=== PATIENT | female | born 1990 | race Caucasian/White ===

== ENCOUNTER → 2016-05-15 | Outpatient (CLI) | payer MEDICARE, OTHER ==
[2016-05-15 14:27] LABS: Basophils % (A) 0 %; CH 31.1; CHCM 33.9; Eosinophils # (A) 0.2 k/uL (0-0.7); Eosinophils % (A) 2 %; HCT 35.8 % (34.0-46.0); HDW 2.94; HGB 11.8 gm/dL (11.4-16.0); Luc # (Auto) 0.06; Luc % (Auto) 1; Lymphocytes # (A) 1.6 k/uL (1.0-4.8); Lymphocytes % (A) 16 %; MCH 30.6 pg (25.0-35.0); MCHC 33.1 g/dL (31.0-37.0); MCV 92.4 fL (80.0-100.0); Mean Platelet Volume 7.7; Monocytes # (A) 0.3 k/uL (0-1.0); Monocytes % (A) 3 %; Neutrophils # (A) 7.9 k/uL (1.3-7.7); Neutrophils % (A) 79 %; RBC 3.87 m/uL (3.80-5.40); RDW 13.5 % (11.5-15.5); WBC (Perox) 10.73
[2016-05-16 06:34] LABS: HIV-1/HIV-2 Ab Screen NONREAC (NON REAC)
== END | disposition home or self-care (01) ==
LOC: LABWHC1 12:53
PROVIDERS: ATTEND Obstetrics & Gynecology
DX: Z36 Encounter for antenatal screening of mother (principal); Z3A.00 Weeks of gestation of pregnancy not specified
CPT/HCPCS: 36415; 82950; 85025; 86780; 87389

== ENCOUNTER → 2016-05-16 | Outpatient (CLI) | payer MEDICARE, OTHER ==
--- NOTE | 2016-05-16 17:08 | US ---
EXAMINATION TYPE: US abdomen complete DATE OF EXAM: 05/16/2016 4:39 PM COMPARISON: US on PACS CLINICAL HISTORY: periumbilical pain, patient 26 weeks . Patient has history of hernia as a t eenager in the same area as her pain. EXAM MEASUREMENTS: Liver Length: 16.0 cm Gallbladder Wall: 0.2 cm CBD: 0.4 cm Spleen: 12.1 cm Right Kidney: 11.6 x 4.9 x 6.7 cm Left Kidney: 11.9 x 4.9 x 6.4 cm ANATOMY: TECHNOLOGIST IMPRESSION: Scanned area of patients pain, right side of umbilicus, no abnormality note d. Pancreas: visualized portions within normal limits Liver: Within normal limits Gallbladder: no stones seen Evidence for sonographic Enriquez's sign: no CBD: Within normal limits Spleen: Within normal limits Right Kidney: mild to moderate hydro seen Left Kidney: No hydronephrosis or masses seen Upper IVC: Within normal limits Abd Aorta: only proximal portions seen due to The liver is homogenous. The intrahepatic portion of the IVC and proximal abdominal aorta are within normal limits. There is no evidence of cholelithiasis. Common bile duct is unremarkable. The visu alized portions of the pancreas are homogenous. The spleen is unremarkable. Kidneys are symmetric a nd free of hydronephrosis. No renal lesions are seen. IMPRESSION: There is mild right-sided hydronephrosis. It is not clear if this is related to the patie nt's symptoms. This could relate to hydronephrosis of .. No gallstones or dilated ducts. No evidence of a hernia. Normal Values: Liver Length: < 16cm wnl, 17-18cm upper limits, >18cm enlarged Spleen Length = < 13cm Renal Length = 9 - 12cm GB Wall: < 0.3cm CBD: < 0.6cm or < 1.0cm post cholecystectomy
== END | disposition home or self-care (01) ==
LOC: RADUSMAIN 16:07
PROVIDERS: ATTEND Obstetrics & Gynecology
DX: N13.30 Unspecified hydronephrosis (principal); R10.33 Periumbilical pain; Z90.49 Acquired absence of other specified parts of digestive tract
CPT/HCPCS: 76700

== ENCOUNTER 2016-06-17 16:26 | Outpatient (CLI) | payer MEDICARE, OTHER ==
[2016-06-17 17:17] LABS: Amorphous Sediment,Urine Rare /hpf; Appearance,Urine Cloudy (Clear); Bilirubin,Urine Negative (Negative); Glucose,Urine (UA) Negative (Negative); Ketones,Urine Negative (Negative); Leukocyte Esterase,Urine Small (Negative); Mucus,Urine Rare /hpf; Nitrite,Urine Negative (Negative); Particle Count 17726; Protein,Urine Negative (Negative); Specific Gravity,Urine 1.014 (1.001-1.035); Squamous Epithelial Cell,Urine <1 /hpf (0-4); UA Billing (MACRO vs. MICRO) MICRO; Urobilinogen,Urine <2.0 mg/dL (<2.0); WBC,Urine 4 /hpf (0-5)
== END 2016-06-17 17:31 | disposition home or self-care (01) ==
LOC: FBPOP 16:26
PROVIDERS: ATTEND Obstetrics & Gynecology
DX: O60.03 Preterm labor without delivery, third trimester (principal); Z3A.31 31 weeks gestation of pregnancy
CPT/HCPCS: 59025; 81001; 80306; G0463; 99213

== ENCOUNTER 2017-01-02 17:23 | Emergency (ER) | payer MEDICARE, OTHER ==
[2017-01-02 17:39] VITALS: BP 104/50; PULSE 81; RESP 18; TEMP 98.1
[2017-01-02] MEDS ORDERED: diphenhydrAMINE 50 MG/ML 1 ML VIAL IVP STA (19:10)
[2017-01-02] MEDS ORDERED: DEXAMETHASONE SOD PHOSPHATE 10 MG/ML 1 ML VIAL IV STA (19:10)
[2017-01-02] MEDS ORDERED: METOCLOPRAMIDE 5 MG/ML 2 ML VIAL IVP STA (19:10)
[2017-01-02] MEDS ORDERED: SODIUM CHLORIDE 0.9% 1,000 ML IV STA (19:10)
--- NOTE | 2017-01-02 19:12 | ED ---
General Adult HPI - General Chief complaint: Headache Stated complaint: Headache, Abd Pain Time Seen by Provider: 01/02/17 18:53 Source: patient, RN notes reviewed Mode of arrival: ambulatory Limitations: no limitations - History of Present Illness Initial comments: Patient 26-year-old female significant past medical history for migraines, who presents emergency room today with chief complaint of migraine headache over the last 2 days. Does admit that she's had photosensitivity along with nausea vomiting. Patient denies any abdominal pain at this time. Patient denies any other complaints. She states the symptoms are consistent with migraine headaches that she's had in the past. Patient denies any recent fever, chills, shortness of breath, chest pain, back pain, abdominal pain, numbness or tingling, dysuria or hematuria, constipation or diarrhea, visual changes, or any other complaints. - Related Data Previous Rx's Medication Instructions Recorded Metoclopramide HCl [Reglan] 10 mg PO Q6HR PRN #5 day 01/02/17 Allergies Allergy/AdvReac Type Severity Reaction Status Date / Time cyclobenzaprine HCl Allergy Unknown Verified 01/02/17 19:11 [From Flexeril] hydromorphone HCl Allergy Nausea & Verified 01/02/17 17:39 [From Dilaudid] Vomiting ketorolac tromethamine Allergy Nausea & Verified 01/02/17 17:39 [From Toradol] Vomiting morphine Allergy Nausea & Verified 01/02/17 19:11 Vomiting Review of Systems ROS Statement: Those systems with pertinent positive or pertinent negative responses have been documented in the HPI. ROS Other: All systems not noted in ROS Statement are negative. Past Medical History Past Medical History: Asthma Additional Past Medical History / Comment(s): detached retina at . Psoriasis, OVARIAN CYST, "heart problems". History of Any Multi-Drug Resistant Organisms: MRSA Date of last positivie culture/infection: 08/24/2012 MDRO Source:: right hip Past Surgical History: Section, Hernia Repair Additional Past Surgical History / Comment(s): RIGHT OVARIAN CYST REMOVED Past Psychological History: Anxiety, Bipolar, Depression Smoking Status: Never smoker Past Alcohol Use History: None Reported Past Drug Use History: Marijuana General Exam - General Exam Comments Initial Comments: General: The patient is awake and alert, in no distress, and does not appear acutely ill. Eye: Pupils are equal, round and reactive to light, extra-ocular movements are intact. No nystagmus. There is normal conjunctiva bilaterally. No signs of icterus. Ears, nose, mouth and throat: There are moist mucous membranes and no oral lesions. Neck: The neck is supple, there is no tenderness or JVD. Cardiovascular: There is a regular rate and rhythm. No murmur, rub or gallop is appreciated. Respiratory: Lungs are clear to auscultation, respirations are non-labored, breath sounds are equal. No wheezes, stridor, rales, or rhonchi. Musculoskeletal: Normal ROM, no tenderness. Strength 5/5. Sensation intact. Pulses equal bilaterally 2+. Neurological: A&O x 3. CN II-XII intact, There are no obvious motor or sensory deficits. Coordination appears grossly intact. Speech is normal. Skin: Skin is warm and dry and no rashes or lesions are noted. Psychiatric: Cooperative, appropriate mood & affect, normal judgment. Limitations: no limitations Course Vital Signs 01/02/17 17:37 Temperature 98.1 F Pulse Rate 81 Respiratory 18 Rate Blood Pressure 104/50 O2 Sat by Pulse 96 Oximetry Medical Decision Making - Medical Decision Making Patient at this time states that she does need to leave to spanish moss picker her children. There is unable to establish IV access and patient has not received any medications. Patient states that this migraine is consistent with migraines is had in the past but at this time needs to leave to give her children. Patient will be discharged and advised follow-up family doctor. Disposition Clinical Impression: Migraine Disposition: HOME SELF-CARE Condition: Good Instructions: Migraine Headache (ED) Additional Instructions: Please use medication as discussed. Please follow-up with family doctor in the next 2 days of symptoms have not improved. Please return to emergency room if the symptoms increase or worsen or for any other concerns. Prescriptions: Metoclopramide HCl [Reglan] 10 mg PO Q6HR PRN #5 day PRN Reason: Nausea Referrals: Amada Roblero MD [Primary Care Provider] - 1-2 days Viktor Stroud MD [STAFF PHYSICIAN] - 1-2 days Time of Disposition: 19:50
== END 2017-01-02 19:59 | disposition home or self-care (01) ==
LOC: EC 17:23
DX: G43.909 Migraine, unspecified, not intractable, without status migrainosus (principal); Z86.14 Personal history of Methicillin resistant Staphylococcus aureus infection; Z88.6 Allergy status to analgesic agent; Z88.5 Allergy status to narcotic agent; Z88.8 Allergy status to other drugs, medicaments and biological substances
CPT/HCPCS: 99283

== ENCOUNTER 2017-03-17 12:57 | Emergency (ER) | payer MEDICARE, OTHER ==
--- NOTE | 2017-03-17 13:38 | ED ---
General Adult HPI - General Chief complaint: GI Bleed Stated complaint: Rectal Bleeding Time Seen by Provider: 03/17/17 13:00 Source: patient, RN notes reviewed Mode of arrival: ambulatory Limitations: no limitations - History of Present Illness Initial comments: This is a 26-year-old female presents emergency Department complaining that she has broken but every time she has a bowel movement 1 week. Patient states she also is noted over the last month that she is having bruising on her legs and her arms which is not from any trauma that she knows of. Patient states she seen her primary medical care doctor about this and she is going to have her worked up for these problems but because the bleeding continues she wanted to come in. Patient told me immediately that she did not want anyone looking at her buttocks. I told it would be helpful she again refused. Patient denies any recent fever chills. Patient denies abdominal pain. Patient denies any rectal pain. Patient denies any pain with problems. Patient denies any hematuria urinary frequency or dysuria. - Related Data Home Medications Medication Instructions Recorded Confirmed No Known Home Medications [No 03/17/17 03/17/17 Known Home Medications] Allergies Allergy/AdvReac Type Severity Reaction Status Date / Time cyclobenzaprine HCl Allergy Unknown Verified 03/17/17 13:14 [From Flexeril] hydromorphone HCl Allergy Nausea & Verified 03/17/17 13:14 [From Dilaudid] Vomiting ketorolac tromethamine Allergy Nausea & Verified 03/17/17 13:14 [From Toradol] Vomiting morphine Allergy Nausea & Verified 03/17/17 13:14 Vomiting Review of Systems ROS Statement: Those systems with pertinent positive or pertinent negative responses have been documented in the HPI. ROS Other: All systems not noted in ROS Statement are negative. Past Medical History Past Medical History: Asthma Additional Past Medical History / Comment(s): detached retina at . Psoriasis, OVARIAN CYST, "heart problems". History of Any Multi-Drug Resistant Organisms: MRSA Date of last positivie culture/infection: 08/24/2012 MDRO Source:: right hip Past Surgical History: Section, Hernia Repair Additional Past Surgical History / Comment(s): RIGHT OVARIAN CYST REMOVED Past Psychological History: Anxiety, Bipolar, Depression Smoking Status: Current every day smoker Past Alcohol Use History: None Reported Past Drug Use History: None Reported General Exam - General Exam Comments Initial Comments: GENERAL: Patient is well-developed and well-nourished. Patient is nontoxic and well- hydrated and is in no acute distress. ENT: Neck is soft and supple. No significant lymphadenopathy is noted. Oropharynx is clear. Moist mucous membranes. Neck has full range of motion without eliciting any pain. EYES: The sclera were anicteric and conjunctiva were pink and moist. Extraocular movements were intact and pupils were equal round and reactive to light. Eyelids were unremarkable. PULMONARY: Unlabored respirations. Good breath sounds bilaterally. No audible rales rhonchi or wheezing was noted. CARDIOVASCULAR: There is a regular rate and rhythm without any murmurs gallops or rubs. ABDOMEN: Soft and nontender with normal bowel sounds. No palpable organomegaly was noted. There is no palpable pulsatile mass. SKIN: Patient has multiple bruises on both legs and both arms and they are at different stages of resolution. NEUROLOGIC: Patient is alert and oriented x3. Cranial nerves II through XII are grossly intact. Motor and sensory are also intact. Normal speech, volume and content. Symmetrical smile. MUSCULOSKELETAL: Normal extremities with adequate strength and full range of motion. No lower extremity swelling or edema. No calf tenderness. LYMPHATICS: No significant lymphadenopathy is noted PSYCHIATRIC: Normal psychiatric evaluation. RECTAL: Patient refuses an examination of her rectal area. Limitations: no limitations Course Vital Signs 03/17/17 13:01 Temperature 98.8 F Pulse Rate 87 Respiratory 18 Rate Blood Pressure 116/64 O2 Sat by Pulse 100 Oximetry Medical Decision Making - Lab Data Result diagrams: 03/17/17 14:10 03/17/17 14:10 Lab Results 03/17/17 03/17/17 03/17/17 Range/Units 14:10 14:10 14:10 WBC 8.0 (3.8-10.6) k/uL RBC 4.31 (3.80-5.40) m/uL Hgb 12.9 (11.4-16.0) gm/dL Hct 38.8 (34.0-46.0) % MCV 90.1 (80.0-100.0) fL MCH 29.9 (25.0-35.0) pg MCHC 33.2 (31.0-37.0) g/dL RDW 14.0 (11.5-15.5) % Plt Count 210 (150-450) k/uL Neutrophils % 66 % Lymphocytes % 27 % Monocytes % 4 % Eosinophils % 2 % Basophils % 0 % Neutrophils # 5.3 (1.3-7.7) k/uL Lymphocytes # 2.1 (1.0-4.8) k/uL Monocytes # 0.3 (0-1.0) k/uL Eosinophils # 0.1 (0-0.7) k/uL Basophils # 0.0 (0-0.2) k/uL PT 9.8 (9.0-12.0) sec INR 1.0 (<1.2) APTT 24.9 (22.0-30.0) sec Sodium 142 (137-145) mmol/L Potassium 4.0 (3.5-5.1) mmol/L Chloride 107 (98-107) mmol/L Carbon Dioxide 27 (22-30) mmol/L Anion Gap 8 mmol/L BUN 19 H (7-17) mg/dL Creatinine 0.70 (0.52-1.04) mg/dL Est GFR (MDRD) Af Amer >60 (>60 ml/min/1.73 sqM) Est GFR (MDRD) Non-Af >60 (>60 ml/min/1.73 sqM) Glucose 72 L (74-99) mg/dL Calcium 9.3 (8.4-10.2) mg/dL Total Bilirubin 0.4 (0.2-1.3) mg/dL AST 18 (14-36) U/L ALT 28 (9-52) U/L Alkaline Phosphatase 57 (38-126) U/L Total Protein 7.2 (6.3-8.2) g/dL Albumin 4.4 (3.5-5.0) g/dL Disposition Clinical Impression: Rectal bleeding, Easy bruising Disposition: HOME SELF-CARE Instructions: Gastrointestinal Bleeding (ED) Additional Instructions: Patient refuses rectal throughout her whole stay in the emergency department Patient is a follow-up with a laborer orchard for the rectal bleeding and a shelter director for the bruising. Referrals: Amada Roblero MD [Primary Care Provider] - 1-2 days Time of Disposition: 15:17
[2017-03-17 14:34] LABS: Basophils % (A) 0 %; CH 29.9; CHCM 33.3; Eosinophils # (A) 0.1 k/uL (0-0.7); Eosinophils % (A) 2 %; HCT 38.8 % (34.0-46.0); HDW 2.41; HGB 12.9 gm/dL (11.4-16.0); Luc % (Auto) 1; Lymphocytes # (A) 2.1 k/uL (1.0-4.8); Lymphocytes % (A) 27 %; MCH 29.9 pg (25.0-35.0); MCHC 33.2 g/dL (31.0-37.0); MCV 90.1 fL (80.0-100.0); Mean Platelet Volume 7.2; Monocytes # (A) 0.3 k/uL (0-1.0); Monocytes % (A) 4 %; Neutrophils # (A) 5.3 k/uL (1.3-7.7); Neutrophils % (A) 66 %; RBC 4.31 m/uL (3.80-5.40)
[2017-03-17 14:47] LABS: ALT 28 U/L (9-52); AST 18 U/L (14-36); Alkaline Phosphatase 57 U/L (38-126); Anion Gap 8 mmol/L; Blood Urea Nitrogen 19 mg/dL (7-17); Calcium 9.3 mg/dL (8.4-10.2); Carbon Dioxide 27 mmol/L (22-30); Chloride 107 mmol/L (98-107); Glucose 72 mg/dL (74-99); Non-African American GFR(MDRD) >60 (>60 ml/min/1.73 sqM); Sodium 142 mmol/L (137-145); Total Bilirubin 0.4 mg/dL (0.2-1.3); Total Protein 7.2 g/dL (6.3-8.2)
[2017-03-17 15:14] LABS: Partial Thromboplastin Time 24.9 sec (22.0-30.0); Prothrombin Time 9.8 sec (9.0-12.0)
[2017-03-17 15:22] VITALS: BP 111/58; PULSE 77; RESP 15; TEMP 97.6
== END 2017-03-17 15:37 | disposition home or self-care (01) ==
LOC: EC 12:57
DX: K62.5 Hemorrhage of anus and rectum (principal); S80.12XA Contusion of left lower leg, initial encounter; S80.11XA Contusion of right lower leg, initial encounter; S40.022A Contusion of left upper arm, initial encounter; S40.021A Contusion of right upper arm, initial encounter; F17.200 Nicotine dependence, unspecified, uncomplicated; Z88.5 Allergy status to narcotic agent; Z88.6 Allergy status to analgesic agent; Z88.8 Allergy status to other drugs, medicaments and biological substances
CPT/HCPCS: 36415; 80053; 85025; 85610; 85730; 99284

== ENCOUNTER → 2017-03-19 | Outpatient (CLI) | payer MEDICARE, OTHER ==
--- NOTE | 2017-03-19 12:13 | CT ---
EXAMINATION TYPE: CT abdomen pelvis w con DATE OF EXAM: 03/19/2017 COMPARISON: 02/07/2016 HISTORY: Rectal bleeding and bruising to the extremities without injury CT DLP: 1421 mGycm CONTRAST: CT scan of the abdomen and pelvis is performed with Oral Contrast and with IV Contrast, patient injec ananya with 100 mL of Omnipaque 300. FINDINGS: LUNG BASES-: No visible nodule. No infiltrate. LIVER/GB: No calcified gallstones. No space occupying hepatic lesion. Biliary tree is of normal ca liber. PANCREAS: No inflammation. No distinct mass. SPLEEN: No splenic enlargement. Small cystic lesion is seen within the upper pole of the spleen germán uring 1 cm. This was not present previously may reflect a small cyst. ADRENALS: No nodule. No thickening. KIDNEYS/BLADDER: No hydronephrosis. No nephrolithiasis. No disctinct renal mass. Urinary bladder g rossly unremarkable. BOWEL: Normal appendix. Normal bowel caliber. No inflammation. Moderate fecal stasis noted. GENITAL ORGANS: No gross abnormality. LYMPH NODES: No greater than 1cm abdominal or pelvic lymph nodes are appreciated. AORTA: No significant abnormality. OSSEOUS STRUCTURES: No significant abnormality is seen. OTHER: No significant additional abnormality is seen. IMPRESSION: 1. No distinct abnormality to account for the patient's symptoms. Correlate clinically. 2. Small splenic cyst.
== END | disposition home or self-care (01) ==
LOC: RADCTMAIN 09:56
PROVIDERS: ATTEND Family Medicine
DX: D73.4 Cyst of spleen (principal)
CPT/HCPCS: 74177; Q9967

== ENCOUNTER 2017-05-24 23:56 | Emergency (ER) | payer MEDICARE, OTHER ==
[2017-05-25 00:12] VITALS: RESP 18
[2017-05-25] MEDS ORDERED: traMADol 50 MG TAB PO STA (00:37)
[2017-05-25] MEDS ORDERED: KETOROLAC 30 MG/ML 1 ML VIAL IM STA (00:37)
[2017-05-25 00:41] LABS: Appearance,Urine Clear (Clear); Bilirubin,Urine Negative (Negative); Blood,Urine Negative (Negative); Color,Urine Yellow; Glucose,Urine (UA) Negative (Negative); Ketones,Urine Negative (Negative); Leukocyte Esterase,Urine Negative (Negative); Nitrite,Urine Negative (Negative); Protein,Urine Trace (Negative); Specific Gravity,Urine 1.024 (1.001-1.035)
--- NOTE | 2017-05-25 01:26 | ED ---
Abdominal Pain HPI - General Chief Complaint: Abdominal Pain Stated Complaint: Pevlic Pain Time Seen by Provider: 05/25/17 00:14 Source: patient, RN notes reviewed, old records reviewed Mode of arrival: ambulatory Limitations: no limitations - History of Present Illness Initial Comments: This patient is a 26-year-old female presents emergency Department chief complaint of left lower abdominal pain for the past 3 days. She reports she has history of ovarian cysts and feels like this pain is very similar to that. Patient states that she feels nauseated but denies any specific vomiting. Normal bowel habits normal urination. Denies any fever or chills, chest pain or shortness of breath. Patient otherwise denies any back pain or other symptoms.Patient denies any recent fever, chills, shortness of breath, chest pain, back pain, vomiting, numbness or tingling, dysuria or hematuria, constipation or diarrhea, headaches or visual changes, or any other current symptoms - Related Data Previous Rx's Medication Instructions Recorded Ibuprofen [Motrin] 600 mg PO Q8HR PRN #20 tab 05/25/17 Allergies Allergy/AdvReac Type Severity Reaction Status Date / Time No Known Allergies Allergy Verified 04/02/17 14:45 Review of Systems ROS Statement: Those systems with pertinent positive or pertinent negative responses have been documented in the HPI. ROS Other: All systems not noted in ROS Statement are negative. Past Medical History Past Medical History: Asthma, Skin Disorder Additional Past Medical History / Comment(s): detached retina at . Psoriasis, OVARIAN CYST, "heart problems". KIDNEY STONES,. PAST HX GI BLEEDING AND BRUISING History of Any Multi-Drug Resistant Organisms: MRSA Date of last positivie culture/infection: 08/24/2012 MDRO Source:: right hip Past Surgical History: Section, Hernia Repair Additional Past Surgical History / Comment(s): RIGHT OVARIAN CYST REMOVED Past Anesthesia/Blood Transfusion Reactions: No Reported Reaction Past Psychological History: Anxiety, Bipolar, Depression Smoking Status: Current every day smoker Past Alcohol Use History: None Reported Past Drug Use History: Marijuana - Past Family History Mother Family Medical History: Cancer General Exam - General Exam Comments Initial Comments: This is a 26-year-old female. No acute distress. Limitations: no limitations General appearance: alert Head exam: Present: atraumatic, normocephalic, normal inspection Eye exam: Present: normal appearance, PERRL, EOMI. Absent: scleral icterus, conjunctival injection, periorbital swelling ENT exam: Present: normal exam, mucous membranes moist Neck exam: Present: normal inspection. Absent: tenderness, meningismus, lymphadenopathy Respiratory exam: Present: normal lung sounds bilaterally. Absent: respiratory distress, wheezes, rales, rhonchi, stridor Cardiovascular Exam: Present: regular rate, normal rhythm, normal heart sounds. Absent: systolic murmur, diastolic murmur, rubs, gallop, clicks GI/Abdominal exam: Present: soft, tenderness ( Minimal left lower quadrant tenderness.), normal bowel sounds. Absent: distended, guarding, rebound, rigid Extremities exam: Present: normal inspection, full ROM, normal capillary refill. Absent: tenderness, pedal edema, joint swelling, calf tenderness Back exam: Present: normal inspection Neurological exam: Present: alert, oriented X3, CN II-XII intact Psychiatric exam: Present: normal affect, normal mood Skin exam: Present: warm, dry, intact, normal color. Absent: rash Course Vital Signs 05/25/17 05/25/17 00:08 01:58 Temperature 97.1 F L 97.8 F Pulse Rate 84 80 Respiratory 18 18 Rate Blood Pressure 115/57 121/77 O2 Sat by Pulse 98 97 Oximetry Medical Decision Making - Medical Decision Making This patient is a 26-year-old female presents emergency Department chief complaint of left lower abdominal pain for the past 3 days. She reports she has history of ovarian cysts and feels like this pain is very similar to that. Patient states that she feels nauseated but denies any specific vomiting. Normal bowel habits normal urination. Patient does have some tenderness over the left lower quadrant. Patient refuses pelvic exam. Discussed that I cannot fully diagnose for any pelvic pathology is without doing a pelvic exam. She continues to refuse. Urinalysis negative for infection. HCG is negative. Patient did have a transvaginal ultrasound. There was no evidence of left- sided ovarian cysts. I discussed that without any further examination I cannot fully treat her at this time. She did have a small right sided ovarian cyst. There is some mild fluid within the pelvic cul-de-sac. I discussed this could be the origin for pain. Discussed no variances treated with anti-inflammatory medication Motrin Tylenol. She was given a Ultram in the emergency department. Discussed returning to emergency department if any alarming signs or symptoms occur. Discussed following up with Dr. Villanueva patient's PLASTIC DUPLICATOR. Patient agrees to treatment plan will comply. Return parameters were discussed. - Lab Data Lab Results 05/25/17 05/25/17 Range/Units 00:25 00:25 Urine Color Yellow Urine Appearance Clear (Clear) Urine pH 6.0 (5.0-8.0) Ur Specific [place] 1.024 (1.001-1.035) Urine Protein Trace H (Negative) Urine Glucose (UA) Negative (Negative) Urine Ketones Negative (Negative) Urine Blood Negative (Negative) Urine Nitrite Negative (Negative) Urine Bilirubin Negative (Negative) Urine Urobilinogen 3.0 (<2.0) mg/dL Ur Leukocyte Esterase Negative (Negative) Urine HCG, Qual Not Detected (Not Detectd) - Radiology Data Radiology results: report reviewed Small amount of fluid within the cervical canal. No endometrial thickening. No evidence of ovarian torsion. No solid adnexal mass. There is a 5 mm echogenic area on the right ovary which could be a small hemorrhagic cyst. Disposition Clinical Impression: Ovarian cyst Disposition: HOME SELF-CARE Condition: Good Instructions: Ovarian Cyst (ED) Additional Instructions: Patient advised to s a take Motrin and Tylenol for pain. Apply heating packs over the area. Return to the emergency department any alarming signs or symptoms occur. Prescriptions: Ibuprofen [Motrin] 600 mg PO Q8HR PRN #20 tab PRN Reason: Pain Referrals: Amada Roblero MD [Primary Care Provider] - 1-2 days Time of Disposition: 01:40
--- NOTE | 2017-05-25 01:28 | US ---
EXAMINATION TYPE: US transvaginal DATE OF EXAM: 05/25/2017 COMPARISON: NONE CLINICAL HISTORY: Pain. TECHNIQUE: Transvaginal (TV) Date of LMP: 05/08/2017 EXAM MEASUREMENTS: Uterus: 8.6 x 5.0 x 7.3 cm Endometrial Stripe: 0.9 cm Right Ovary: 2.9 x 1.7 x 3.8 cm Left Ovary: 3.2 x 2.1 x 3.2 cm 1. Uterus: Retroflexed Fluid seen in cervical canal 2. Endometrium: wnl 3. Right Ovary: Echogenic foci seen measuring .5 x .6 x .5 cm 4. Left Ovary: wnl Spectral, color and waveform doppler imaging shows good arterial and venous flow within the ovaries ; there is no evidence for ovarian torsion. 5. Bilateral Adnexa: wnl 6. Posterior cul-de-sac: Small amount of fluid seen. IMPRESSION: There is a small amount of the fluid in the cervical canal. There is no endometrial thick ening. There is no evidence of ovarian torsion. No solid adnexal mass. There is a small 5 mm echogeni c area on the right ovary that could be a small hemorrhagic cyst.
[2017-05-25 01:59] VITALS: BP 121/77; PULSE 80; TEMP 97.8
== END 2017-05-25 02:00 | disposition home or self-care (01) ==
LOC: EC 23:56
DX: R10.32 Left lower quadrant pain (principal); N83.201 Unspecified ovarian cyst, right side; F17.200 Nicotine dependence, unspecified, uncomplicated; Z86.14 Personal history of Methicillin resistant Staphylococcus aureus infection; Z53.20 Procedure and treatment not carried out because of patient's decision for unspecified reasons
CPT/HCPCS: 76830; 81003; 81025; 93975; 99284

== ENCOUNTER 2017-05-27 15:20 | Emergency (ER) | payer MEDICARE, OTHER ==
[2017-05-27 15:44] VITALS: TEMP 97.9
[2017-05-27] MEDS ORDERED: Acetaminophen-Codeine 300-30mg TAB PO STA (16:50)
[2017-05-27] MEDS ORDERED: IBUPROFEN 600 MG TAB PO STA (16:50)
--- NOTE | 2017-05-27 17:08 | ED ---
General Adult HPI - General Chief complaint: Abdominal Pain Stated complaint: Abd Pain/Back Pain Time Seen by Provider: 05/27/17 16:44 Source: patient, RN notes reviewed Mode of arrival: ambulatory Limitations: no limitations - History of Present Illness Initial comments: 26-year-old female presents emergency Department with chief complaint of back pain. Patient states that she's been having some discomfort last 4-5 days. She states it's worse with moving and walking. Patient states that she is not taking any medications but she does not have any at home though she was seen in emergency department last night and was given a prescription for ibuprofen and which she did not fill. Patient and last night showed ovarian cyst. patient had urinalysis which was benign. patient she states that she has not been doing anything for herself at home because his pain and she has not been trying any heat or ice at home. patient denies any abdominal pain at this time denies any nausea vomiting diarrhea constipation. denies any dysuria no hematuria. - Related Data Previous Rx's Medication Instructions Recorded Ibuprofen [Motrin] 600 mg PO Q8HR PRN #20 tab 05/25/17 Cyclobenzaprine [Flexeril] 10 mg PO TID PRN #15 tab 05/27/17 Allergies Allergy/AdvReac Type Severity Reaction Status Date / Time ketorolac [From Toradol] Allergy Rash/Hives Verified 05/27/17 16:44 Review of Systems ROS Statement: Those systems with pertinent positive or pertinent negative responses have been documented in the HPI. ROS Other: All systems not noted in ROS Statement are negative. Past Medical History Past Medical History: Asthma, Skin Disorder Additional Past Medical History / Comment(s): detached retina at . Psoriasis, OVARIAN CYST, "heart problems". KIDNEY STONES,. PAST HX GI BLEEDING AND BRUISING History of Any Multi-Drug Resistant Organisms: MRSA Date of last positivie culture/infection: 08/24/2012 MDRO Source:: right hip Past Surgical History: Section, Hernia Repair Additional Past Surgical History / Comment(s): RIGHT OVARIAN CYST REMOVED Past Anesthesia/Blood Transfusion Reactions: No Reported Reaction Past Psychological History: Anxiety, Bipolar, Depression Smoking Status: Current every day smoker Past Alcohol Use History: None Reported Past Drug Use History: Marijuana - Past Family History Mother Family Medical History: Cancer General Exam Limitations: no limitations General appearance: alert, in no apparent distress Head exam: Present: atraumatic, normocephalic, normal inspection Respiratory exam: Present: normal lung sounds bilaterally. Absent: respiratory distress, wheezes, rales, rhonchi, stridor Cardiovascular Exam: Present: regular rate, normal rhythm, normal heart sounds. Absent: systolic murmur, diastolic murmur, rubs, gallop, clicks GI/Abdominal exam: Present: soft, normal bowel sounds. Absent: distended, tenderness, guarding, rebound, rigid Back exam: Present: paraspinal tenderness (Tenderness lumbar region). Absent: CVA tenderness (R), CVA tenderness (L), vertebral tenderness Skin exam: Present: warm, dry, intact, normal color. Absent: rash Course Vital Signs 05/27/17 15:42 Temperature 97.9 F Pulse Rate 125 H Respiratory 20 Rate Blood Pressure 118/70 O2 Sat by Pulse 98 Oximetry Medical Decision Making - Medical Decision Making 26-year-old female presents for back pain. Patient's pain is reproducible worse with movement. Patient has no abdominal tenderness. Patient was seen yesterday and ovarian cyst. Patient's urinalysis was repeated no evidence of hematuria is likely any other of kidney stone. Patient be discharged at this time she is advised take ibuprofen as she was prescribed yesterday. - Lab Data Lab Results 05/27/17 Range/Units 17:27 Urine Color Yellow Urine Appearance Cloudy H (Clear) Urine pH 6.0 (5.0-8.0) Ur Specific [place] 1.029 (1.001-1.035) Urine Protein Trace H (Negative) Urine Glucose (UA) Negative (Negative) Urine Ketones Negative (Negative) Urine Blood Negative (Negative) Urine Nitrite Negative (Negative) Urine Bilirubin Negative (Negative) Urine Urobilinogen <2.0 (<2.0) mg/dL Ur Leukocyte Esterase Negative (Negative) Urine RBC 1 (0-5) /hpf Urine WBC 3 (0-5) /hpf Ur Squamous Epith Cells 10 H (0-4) /hpf Calcium Oxalate Crystal Moderate H (None) /hpf Urine Mucus Moderate H (None) /hpf Disposition Clinical Impression: Back pain, Ovarian cyst Disposition: HOME SELF-CARE Condition: Stable Instructions: Acute Low Back Pain (ED) Additional Instructions: Please return to the Emergency Department if symptoms worsen or any other concerns. Prescriptions: Cyclobenzaprine [Flexeril] 10 mg PO TID PRN #15 tab PRN Reason: Muscle Spasm Referrals: Amada Roblero MD [Primary Care Provider] - 1-2 days Time of Disposition: 18:08
[2017-05-27 18:06] LABS: Appearance,Urine Cloudy (Clear); Bilirubin,Urine Negative (Negative); Blood,Urine Negative (Negative); Calcium Oxalate Crystals,Urine Moderate /hpf; Color,Urine Yellow; Glucose,Urine (UA) Negative (Negative); Ketones,Urine Negative (Negative); Leukocyte Esterase,Urine Negative (Negative); Mucus,Urine Moderate /hpf; Nitrite,Urine Negative (Negative); Protein,Urine Trace (Negative); RBC,Urine 1 /hpf (0-5); Specific Gravity,Urine 1.029 (1.001-1.035); Squamous Epithelial Cell,Urine 10 /hpf (0-4); Urobilinogen,Urine <2.0 mg/dL (<2.0); WBC,Urine 3 /hpf (0-5)
[2017-05-27 18:40] VITALS: BP 115/74; PULSE 78; RESP 16
== END 2017-05-27 18:38 | disposition home or self-care (01) ==
LOC: EC 15:20
DX: N83.209 Unspecified ovarian cyst, unspecified side (principal); M54.9 Dorsalgia, unspecified; F17.200 Nicotine dependence, unspecified, uncomplicated; Z88.6 Allergy status to analgesic agent; Z98.890 Other specified postprocedural states
CPT/HCPCS: 81001; 99284

== ENCOUNTER 2017-10-12 18:37 | Emergency (ER) | payer MEDICARE, OTHER ==
[2017-10-12 18:42] VITALS: RESP 20
[2017-10-12] MEDS ORDERED: guaiFENesin-DM 100-10MG/5ML 10 ML CUP PO STA (18:56)
--- NOTE | 2017-10-12 18:59 | ED ---
General Adult HPI - General Chief complaint: Upper Respiratory Infection Stated complaint: cough Time Seen by Provider: 10/12/17 18:51 Source: patient Mode of arrival: ambulatory Limitations: no limitations - History of Present Illness Initial comments: 26-year-old female patient presents to the emergency department today for evaluation of cough and upper respiratory symptoms for the last 3 days. Patient states that she has had a harsh dry cough. States that today she did have some sputum production that was brown in color. Patient denies any fevers or chills this. States she is having associated nasal congestion and drainage. Denies any sore throat or ear pain. Patient denies any shortness of breath or chest pain. States that she does smoke cigarettes. Patient denies any recent rash, abdominal pain, nausea, vomiting, diarrhea, constipation, back pain , numbness, tingling, dizziness, weakness, hematuria, dysuria, urinary urgency, urinary frequency, headache, visual changes, or any other complaints. - Related Data Home Medications Medication Instructions Recorded Confirmed Melatonin 3 mg PO HS PRN 10/12/17 10/12/17 Allergies Allergy/AdvReac Type Severity Reaction Status Date / Time ketorolac [From Toradol] Allergy Rash/Hives Verified 10/12/17 18:47 Review of Systems ROS Statement: Those systems with pertinent positive or pertinent negative responses have been documented in the HPI. ROS Other: All systems not noted in ROS Statement are negative. Past Medical History Past Medical History: Asthma, Skin Disorder Additional Past Medical History / Comment(s): detached retina at . Psoriasis, OVARIAN CYST, "heart problems". KIDNEY STONES,. PAST HX GI BLEEDING AND BRUISING History of Any Multi-Drug Resistant Organisms: MRSA Date of last positivie culture/infection: 08/24/2012 MDRO Source:: right hip Past Surgical History: Section, Hernia Repair Additional Past Surgical History / Comment(s): RIGHT OVARIAN CYST REMOVED Past Anesthesia/Blood Transfusion Reactions: No Reported Reaction Past Psychological History: Anxiety, Bipolar, Depression Smoking Status: Current every day smoker Past Alcohol Use History: None Reported Past Drug Use History: Marijuana - Past Family History Mother Family Medical History: Cancer General Exam Limitations: no limitations General appearance: alert, in no apparent distress, other (This is a well- developed, well-nourished adult female patient in no acute distress. Vital signs upon presentation are temperature 98.0F, pulse 110, respirations 20, blood pressure 127/83, pulse ox 99% on room air.) Eye exam: Present: normal appearance, PERRL, EOMI. Absent: scleral icterus, conjunctival injection, periorbital swelling ENT exam: Present: normal exam, normal oropharynx, mucous membranes moist, TM's normal bilaterally Neck exam: Present: normal inspection. Absent: tenderness, meningismus, lymphadenopathy Respiratory exam: Present: normal lung sounds bilaterally, other (Respirations even and unlabored. Patient able to speak full sentences without difficulty.). Absent: respiratory distress, wheezes, rales, rhonchi, stridor Cardiovascular Exam: Present: regular rate, normal rhythm, normal heart sounds. Absent: systolic murmur, diastolic murmur, rubs, gallop, clicks GI/Abdominal exam: Present: soft, normal bowel sounds. Absent: distended, tenderness, guarding, rebound, rigid Neurological exam: Present: alert, oriented X3, CN II-XII intact Psychiatric exam: Present: normal affect, normal mood Skin exam: Present: warm, dry, intact, normal color. Absent: rash Course Vital Signs 10/12/17 10/12/17 18:39 19:33 Temperature 98 F 98.8 F Pulse Rate 110 H 76 Respiratory 20 20 Rate Blood Pressure 127/83 121/64 O2 Sat by Pulse 99 100 Oximetry Medical Decision Making - Medical Decision Making 26-year-old male patient presented to the emergency department today for complaints of cough with brownish sputum production. Physical examination is unremarkable. Lungs are clear to auscultation with good air movement. Patient has no shortness of breath. Denies chest pain. Vital signs are stable. Chest x-ray shows no acute cardiopulmonary process. Patient does have viral upper respiratory illness. She is instructed to use [id number] nasal decongestants and cough medications for symptom relief. She is instructed to follow-up with her primary care physician for recheck in 1-2 days. Return parameters discussed in detail. She verbalizes understanding and agrees with this plan. - Radiology Data Radiology results: report reviewed, image reviewed Two-view x-ray of the chest was obtained. Heart media's time are normal. Lungs are clear. Diaphragm is normal. Bony thorax appears normal. Impression by Dr. Alonzo shows normal chest with no change. Disposition Clinical Impression: Viral upper respiratory illness Disposition: HOME SELF-CARE Condition: Good Instructions: Upper Respiratory Infection (ED) Additional Instructions: Rest, increase fluids. Use [id number] nasal decongestants and cough medications for symptom relief. Follow-up with her primary care physician for recheck in 1-2 days. Return here immediately for any new, worsening, or concerning symptoms. Is patient prescribed a controlled substance at d/c from ED?: No Referrals: Amada Roblero MD [Primary Care Provider] - 1-2 days Time of Disposition: 19:47
--- NOTE | 2017-10-12 19:15 | XR ---
EXAMINATION TYPE: XR chest 2V DATE OF EXAM: 10/12/2017 COMPARISON: 03/05/2015 HISTORY: Cough TECHNIQUE: Frontal and lateral views of the chest are obtained. FINDINGS: Heart and mediastinum are normal. Lungs are clear. Diaphragm is normal. Bony thorax appear s normal. IMPRESSION: Normal chest. No change.
[2017-10-12 19:34] VITALS: BP 121/64; PULSE 76; TEMP 98.8
== END 2017-10-12 19:54 | disposition home or self-care (01) ==
LOC: EC 18:37
DX: J06.9 Acute upper respiratory infection, unspecified (principal); F17.210 Nicotine dependence, cigarettes, uncomplicated; Z86.14 Personal history of Methicillin resistant Staphylococcus aureus infection; Z88.6 Allergy status to analgesic agent
CPT/HCPCS: 71046; 99283

== ENCOUNTER → 2017-12-17 | Outpatient (CLI) | payer MEDICARE, OTHER ==
--- NOTE | 2017-12-17 16:55 | US ---
EXAMINATION TYPE: US abdomen complete DATE OF EXAM: 12/17/2017 COMPARISON: CT, US CLINICAL HISTORY: R10.33 Periumbilical pain; right lateral abdominal pain near umbilicus, umbilical d rainage and IBS per patient EXAM MEASUREMENTS: Liver Length: 17.5 cm Gallbladder Wall: 0.2 cm CBD: 0.4 cm Spleen: 9.6 cm Right Kidney: 9.9 x 5.5 x 3.6 cm Left Kidney: 10.2 x 4.8 x 4.7 cm Pancreas: wnl Liver: wnl Gallbladder: wnl Evidence for sonographic Enriquez's sign: CBD: wnl Spleen: wnl Right Kidney: No hydronephrosis or masses seen Left Kidney: No hydronephrosis or masses seen Upper IVC: wnl Abd Aorta: wnl Umbilical area: no hernia is seen with or without valsalva maneuver IMPRESSION: No free fluid. No evidence of umbilical hernia.
== END | disposition home or self-care (01) ==
LOC: RADUSWWP 15:44
PROVIDERS: ATTEND Family Medicine
DX: R10.9 Unspecified abdominal pain (principal); R10.33 Periumbilical pain
CPT/HCPCS: 76700

== ENCOUNTER 2018-05-12 12:45 | Emergency (ER) | payer MEDICARE, OTHER ==
[2018-05-12 12:52] VITALS: RESP 18
[2018-05-12] MEDS ORDERED: predniSONE 50 MG TAB PO STA (14:04)
[2018-05-12] MEDS ORDERED: IPRATROPIUM-ALBUTEROL 3 ML NEB INHALATION STA (14:04)
--- NOTE | 2018-05-12 14:18 | XR ---
EXAMINATION TYPE: XR chest 2V DATE OF EXAM: 05/12/2018 COMPARISON: 10/12/2017 HISTORY: Fever TECHNIQUE: Frontal and lateral views of the chest are obtained. FINDINGS: Heart and mediastinum are normal. Lungs are clear. Diaphragm is normal. Bony thorax appear s normal. IMPRESSION: Normal chest. No change.
--- NOTE | 2018-05-12 14:37 | ED ---
General Adult HPI - General Chief complaint: Upper Respiratory Infection Stated complaint: chest congestion Time Seen by Provider: 05/12/18 13:35 Source: patient, RN notes reviewed Mode of arrival: ambulatory Limitations: no limitations - History of Present Illness Initial comments: 27-year-old female with a past medical history of asthma presents to the emergency determine for chief complaint of productive cough. Patient states this has been ongoing for the past 3 days. She states she has felt slightly more short of breath than normal and has a history of asthma. She does admit to feeling wheezy. Patient also complains of nasal congestion. She states her ears have been itching. She has been taking Mucinex without relief. Patient does have a nebulizer at home but does not have an inhaler. Patient is not a smoker.Patient has no other complaints at this time including chest pain, abdominal pain, nausea or vomiting, headache, or visual changes. - Related Data Home Medications Medication Instructions Recorded Confirmed guaiFENesin [Mucinex] 600 mg PO Q12H PRN 05/12/18 05/12/18 Previous Rx's Medication Instructions Recorded Albuterol Inhaler [Ventolin Hfa 1 - 2 puff INHALATION Q6HR PRN #1 05/12/18 Inhaler] inhaler predniSONE 50 mg PO DAILY #5 tablet 05/12/18 Allergies Allergy/AdvReac Type Severity Reaction Status Date / Time No Known Allergies Allergy Verified 05/12/18 14:21 Review of Systems ROS Statement: Those systems with pertinent positive or pertinent negative responses have been documented in the HPI. ROS Other: All systems not noted in ROS Statement are negative. Past Medical History Past Medical History: Asthma, Skin Disorder Additional Past Medical History / Comment(s): detached retina at . Psoriasis, OVARIAN CYST, "heart problems". KIDNEY STONES,. PAST HX GI BLEEDING AND BRUISING History of Any Multi-Drug Resistant Organisms: MRSA Date of last positivie culture/infection: 08/24/2012 MDRO Source:: right hip Past Surgical History: Section, Hernia Repair Additional Past Surgical History / Comment(s): RIGHT OVARIAN CYST REMOVED Past Anesthesia/Blood Transfusion Reactions: No Reported Reaction Past Psychological History: Anxiety, Bipolar, Depression Smoking Status: Current every day smoker Past Alcohol Use History: None Reported Past Drug Use History: Marijuana - Past Family History Mother Family Medical History: Cancer General Exam Limitations: no limitations General appearance: alert, in no apparent distress Head exam: Present: atraumatic, normocephalic, normal inspection Eye exam: Present: normal appearance, PERRL, EOMI. Absent: scleral icterus, conjunctival injection, periorbital swelling ENT exam: Present: normal exam, normal oropharynx (Uvula midline, non- erythematous, no tonsillar exudates noted bilaterally), mucous membranes moist, TM's normal bilaterally, normal external ear exam Neck exam: Present: normal inspection. Absent: tenderness, meningismus, lymphadenopathy Respiratory exam: Present: decreased breath sounds (Diminished breath sounds bilaterally). Absent: respiratory distress, wheezes, rales, rhonchi, stridor Cardiovascular Exam: Present: regular rate, normal rhythm, normal heart sounds. Absent: systolic murmur, diastolic murmur, rubs, gallop, clicks Neurological exam: Present: alert, oriented X3, CN II-XII intact Psychiatric exam: Present: normal affect, normal mood Course Vital Signs 05/12/18 05/12/18 05/12/18 12:50 14:40 14:44 Temperature 97.9 F Pulse Rate 87 84 88 Respiratory 18 Rate Blood Pressure 109/69 O2 Sat by Pulse 98 Oximetry Medical Decision Making - Medical Decision Making 27-year-old female with a history of asthma presents for cough 3 days. On exam patient has mildly diminished breath sounds bilaterally, no wheezing noted. No respiratory distress. Patient does have some congestion noted. Vitals within acceptable limits, patient is 98% on room air. Patient was given a breathing treatment and is feeling much better. X-ray was negative for any pneumonia. At this time patient likely has viral upper respiratory infection with asthma exacerbation. She will be given a prescription of steroids. She has a nebulizer at home but does not have an inhaler. She will be written for an inhaler. She will follow up with primary care in 1-2 days and return if she has any worsening symptoms. Disposition Clinical Impression: Upper respiratory infection Disposition: HOME SELF-CARE Condition: Good Instructions: Upper Respiratory Infection (ED) Additional Instructions: Please take steroid as directed. Continue to take Mucinex. Use inhaler and nebulizer as needed. Follow up with primary care in 1-2 days. Return if you have any worsening symptoms. Prescriptions: Albuterol Inhaler [Ventolin Hfa Inhaler] 1 - 2 puff INHALATION Q6HR PRN #1 inhaler PRN Reason: Shortness Of Breath predniSONE 50 mg PO DAILY #5 tablet Is patient prescribed a controlled substance at d/c from ED?: No Referrals: Aamda Roblero MD [Primary Care Provider] - 1-2 days Time of Disposition: 14:51
[2018-05-12 15:04] VITALS: BP 121/61; PULSE 76; TEMP 96.9
== END 2018-05-12 15:04 | disposition home or self-care (01) ==
LOC: EC 12:45
DX: J06.9 Acute upper respiratory infection, unspecified (principal); F17.200 Nicotine dependence, unspecified, uncomplicated; Z87.09 Personal history of other diseases of the respiratory system
CPT/HCPCS: 94640; 71046; 99283; J7512

== ENCOUNTER 2018-06-13 10:45 | Emergency (ER) | payer MEDICARE, OTHER ==
[2018-06-13 10:53] VITALS: BP 106/74
[2018-06-13] MEDS ORDERED: ACETAMINOPHEN TAB 500 MG TAB PO STA (11:13)
--- NOTE | 2018-06-13 11:26 | ED ---
General Adult HPI - General Chief complaint: Upper Respiratory Infection Stated complaint: cough/congestion Time Seen by Provider: 06/13/18 11:00 Source: patient, RN notes reviewed Mode of arrival: ambulatory Limitations: no limitations - History of Present Illness Initial comments: 27-year-old female presents to the emergency department for chief complaint of cough. Patient states this has been going on for about 4 days. Patient states the cough is productive and she is coughing up sputum. Patient states she also has body aches. She states her lower back is aching as well as her arms and legs. Patient denies specific joint pain. Patient states she has had chills but is unsure of fever. Patient has not had Motrin or Tylenol. She denies significant shortness of breath or chest pain. Patient has no other complaints at this time including shortness of breath, chest pain, abdominal pain, nausea or vomiting, headache, or visual changes. - Related Data Home Medications Medication Instructions Recorded Confirmed No Known Home Medications 06/13/18 06/13/18 Allergies Allergy/AdvReac Type Severity Reaction Status Date / Time No Known Allergies Allergy Verified 06/13/18 11:17 Review of Systems ROS Statement: Those systems with pertinent positive or pertinent negative responses have been documented in the HPI. ROS Other: All systems not noted in ROS Statement are negative. Past Medical History Past Medical History: Asthma, Skin Disorder Additional Past Medical History / Comment(s): detached retina at . Psoriasis, OVARIAN CYST, "heart problems". KIDNEY STONES,. PAST HX GI BLEEDING AND BRUISING History of Any Multi-Drug Resistant Organisms: MRSA Date of last positivie culture/infection: 08/24/2012 MDRO Source:: right hip Past Surgical History: Section, Hernia Repair Additional Past Surgical History / Comment(s): RIGHT OVARIAN CYST REMOVED Past Anesthesia/Blood Transfusion Reactions: No Reported Reaction Past Psychological History: Anxiety, Bipolar, Depression Smoking Status: Former smoker Past Alcohol Use History: None Reported Past Drug Use History: None Reported, Marijuana - Past Family History Mother Family Medical History: Cancer General Exam Limitations: no limitations General appearance: alert, in no apparent distress Head exam: Present: atraumatic, normocephalic, normal inspection Eye exam: Present: normal appearance, PERRL, EOMI. Absent: scleral icterus, conjunctival injection, periorbital swelling ENT exam: Present: normal exam, normal oropharynx, mucous membranes moist, TM's normal bilaterally, normal external ear exam, other (mild congestion noted) Neck exam: Present: normal inspection, full ROM. Absent: tenderness, meningismus, lymphadenopathy Respiratory exam: Present: normal lung sounds bilaterally. Absent: respiratory distress, wheezes (no wheezing presents, lungs are CTAB), rales, rhonchi, stridor Cardiovascular Exam: Present: regular rate, normal rhythm, normal heart sounds. Absent: systolic murmur, diastolic murmur, rubs, gallop, clicks GI/Abdominal exam: Present: soft, normal bowel sounds. Absent: distended, tenderness, guarding, rebound, rigid Neurological exam: Present: alert, oriented X3, CN II-XII intact Psychiatric exam: Present: normal affect, normal mood Course Vital Signs 06/13/18 06/13/18 06/13/18 10:50 11:26 12:21 Temperature 99.6 F 100.9 F H 100.5 F H Pulse Rate 135 H 110 H Respiratory 20 25 H Rate Blood Pressure 106/74 O2 Sat by Pulse 97 96 Oximetry Medical Decision Making - Medical Decision Making 27-year-old female presents to the emergency department for a chief complaint of cough 4 days. Patient states cough is productive. Patient states she has also felt chills and has had body aches. Patient does have a temperature of 100.9, given Tylenol. On exam she does not appear in distress. Respirations equal and unlabored. Lungs are clear to auscultation bilaterally. Chest x-ray negative for acute process. However patient is positive for influenza a. Patient is outside of the window for Tamiflu treatment. Discussed hydration therapy and Motrin and Tylenol for fever. Discussed following up with primary care in 1-2 days and returning if she has worsening symptoms. - Lab Data Lab Results 06/13/18 Range/Units 11:25 Influenza Type A RNA Detected H (Not Detectd) Influenza Type B (PCR) Not Detected (Not Detectd) Disposition Clinical Impression: Influenza A Disposition: HOME SELF-CARE Condition: Good Instructions (If sedation given, give patient instructions): Influenza (ED) Additional Instructions: Please drink plenty of fluids. Take [id number] cold and flu medications. Return to the emergency department if you have any worsening symptoms. Otherwise follow-up with primary care in 1-2 days. Is patient prescribed a controlled substance at d/c from ED?: No Referrals: Amada Roblero MD [Primary Care Provider] - 1-2 days Time of Disposition: 12:37
[2018-06-13 11:27] VITALS: PULSE 110; RESP 25
[2018-06-13 12:22] VITALS: TEMP 100.5
--- NOTE | 2018-06-13 12:23 | XR ---
EXAMINATION TYPE: XR chest 2V DATE OF EXAM: 06/13/2018 COMPARISON: 05/12/18 HISTORY: Chest pain TECHNIQUE: Frontal and lateral views of the chest are obtained. FINDINGS: There is no focal air space opacity. No evidence for pneumothorax. No pleural effusion. The cardiac silhouette size is within normal limits. The osseous structures are grossly intact. IMPRESSION: 1. No acute cardiopulmonary process.
== END 2018-06-13 12:52 | disposition home or self-care (01) ==
LOC: EC 10:45
DX: J10.1 Influenza due to other identified influenza virus with other respiratory manifestations (principal); J45.909 Unspecified asthma, uncomplicated; Z86.14 Personal history of Methicillin resistant Staphylococcus aureus infection; Z87.891 Personal history of nicotine dependence
CPT/HCPCS: 71046; 87502; 99283

== ENCOUNTER 2018-06-14 13:20 | Emergency (ER) | payer MEDICARE, OTHER ==
[2018-06-14 13:25] VITALS: BP 104/64; PULSE 115; RESP 22; TEMP 98.7
--- NOTE | 2018-06-14 13:41 | ED ---
URI HPI - General Chief Complaint: Upper Respiratory Infection Stated Complaint: Positive for flu Time Seen by Provider: 06/14/18 13:35 Source: patient, RN notes reviewed Mode of arrival: ambulatory Limitations: no limitations - History of Present Illness Initial Comments: 27-year-old female presents emergency department for cough congestion. Patient has a positive for influenzae yesterday. Patient states she feels worse today. Patient states that she just took Tylenol Motrin. She denies any chest pain or shortness breath states cough is nonproductive and hurts when she coughs. Denies any nausea vomiting diarrhea constipation no rashes. Patient has not taken any [id number] cough and cold medications. - Related Data Previous Rx's Medication Instructions Recorded Acetaminophen [Tylenol] 500 mg PO Q4-6H PRN #20 tab 06/13/18 Ibuprofen [Motrin] 600 mg PO Q6HR PRN #20 tab 06/13/18 guaiFENesin SYRUP 100MG/5ML 200 mg PO Q8HR #1 bottle 06/14/18 [Robitussin] Allergies Allergy/AdvReac Type Severity Reaction Status Date / Time No Known Allergies Allergy Verified 06/14/18 13:25 Review of Systems ROS Statement: Those systems with pertinent positive or pertinent negative responses have been documented in the HPI. ROS Other: All systems not noted in ROS Statement are negative. Past Medical History Past Medical History: Asthma, Skin Disorder Additional Past Medical History / Comment(s): detached retina at . Psoriasis, OVARIAN CYST, "heart problems". KIDNEY STONES,. PAST HX GI BLEEDING AND BRUISING History of Any Multi-Drug Resistant Organisms: MRSA Date of last positivie culture/infection: 08/24/2012 MDRO Source:: right hip Past Surgical History: Section, Hernia Repair Additional Past Surgical History / Comment(s): RIGHT OVARIAN CYST REMOVED Past Anesthesia/Blood Transfusion Reactions: No Reported Reaction Past Psychological History: Anxiety, Bipolar, Depression Smoking Status: Former smoker Past Alcohol Use History: None Reported Past Drug Use History: None Reported, Marijuana - Past Family History Mother Family Medical History: Cancer General Exam Limitations: no limitations General appearance: alert, in no apparent distress Head exam: Present: atraumatic, normocephalic, normal inspection Eye exam: Present: normal appearance, PERRL, EOMI. Absent: scleral icterus, conjunctival injection, periorbital swelling ENT exam: Present: normal exam, normal oropharynx, mucous membranes moist, TM's normal bilaterally, normal external ear exam Neck exam: Present: normal inspection, full ROM. Absent: tenderness, meningismus, lymphadenopathy Respiratory exam: Present: normal lung sounds bilaterally. Absent: respiratory distress, wheezes, rales, rhonchi, stridor Cardiovascular Exam: Present: regular rate, normal rhythm, normal heart sounds. Absent: systolic murmur, diastolic murmur, rubs, gallop, clicks GI/Abdominal exam: Present: soft, normal bowel sounds. Absent: distended, tenderness, guarding, rebound, rigid Course Vital Signs 06/14/18 13:23 Temperature 98.7 F Pulse Rate 115 H Respiratory 22 Rate Blood Pressure 104/64 O2 Sat by Pulse 96 Oximetry Medical Decision Making - Medical Decision Making Patient tested positive for influenza A yesterday chest x-ray reviewed no evidence of pneumonia. Patient advised to continue time Motrin and will be prescribed Robitussin. Disposition Clinical Impression: Influenza A Disposition: HOME SELF-CARE Condition: Stable Instructions (If sedation given, give patient instructions): Influenza (ED) Additional Instructions: Please return to the Emergency Department if symptoms worsen or any other concerns. Prescriptions: guaiFENesin SYRUP 100MG/5ML [Robitussin] 200 mg PO Q8HR #1 bottle Is patient prescribed a controlled substance at d/c from ED?: No Referrals: Amada Roblero MD [Primary Care Provider] - 1-2 days Time of Disposition: 13:40
== END 2018-06-14 13:48 | disposition home or self-care (01) ==
LOC: EC 13:20
DX: J10.1 Influenza due to other identified influenza virus with other respiratory manifestations (principal); Z86.14 Personal history of Methicillin resistant Staphylococcus aureus infection; Z87.891 Personal history of nicotine dependence
CPT/HCPCS: 99283

== ENCOUNTER 2018-09-01 12:24 | Emergency (ER) | payer MEDICARE, OTHER ==
[2018-09-01 12:33] VITALS: BP 101/70; PULSE 101; RESP 18; TEMP 97.7
--- NOTE | 2018-09-01 13:11 | XR ---
EXAMINATION TYPE: XR shoulder complete RT , 3 VIEWS DATE OF EXAM ORDERED: 09/01/2018 HISTORY: Pain. COMPARISON: Previous study dated 02/21/2012. FINDINGS: No fracture, dislocation or other acute osseous lesion is seen. IMPRESSION: NEGATIVE RIGHT SHOULDER.
--- NOTE | 2018-09-01 13:21 | ED ---
General Adult HPI - General Chief complaint: Extremity Injury, Upper Stated complaint: rt shoulder pain Time Seen by Provider: 09/01/18 12:35 Source: patient, RN notes reviewed, old records reviewed Mode of arrival: ambulatory Limitations: no limitations - History of Present Illness Initial comments: 27-year-old female patient with past medical history of tubal ligation presents to ED with approximately 1 week of right shoulder pain. Patient reports that she felt pain in her anterior shoulder when picking up [id number]-old child. Patient states that she has had pain in her right shoulder with lifting and range of motion the last week. Patient denies any recent falls or trauma. Patient denies any other complaints. Patient denies any chest pain, shortness breath, abdominal pain. Systemic: Pt denies fatigue, fever/chills, rash. Pt denies weakness, night sweats, weight loss. Neuro: Pt denies headache, visual disturbances, syncope or pre-syncope. HEENT: Pt denies ocular discharge or irritation, otalgia, rhinorrhea, pharyngitis or notable lymphadenopathy. Cardiopulmonary: Pt denies chest pain, SOB, heart palpitations, dyspnea on exertion. Abdominal/GI: Pt denies abdominal pain, n/v/d. : Pt denies dysuria, burning w/ urination, frequency/urgency. Denies new onset urinary or bowel incontinence. MSK: Pt denies loss of strength or function in extremities. Neuro: Pt denies new onset weakness, paresthesias. - Related Data Previous Rx's Medication Instructions Recorded Acetaminophen [Tylenol] 500 mg PO Q4-6H PRN #20 tab 06/13/18 Ibuprofen [Motrin] 600 mg PO Q6HR PRN #20 tab 06/13/18 guaiFENesin SYRUP 100MG/5ML 200 mg PO Q8HR #1 bottle 06/14/18 [Robitussin] Allergies Allergy/AdvReac Type Severity Reaction Status Date / Time No Known Allergies Allergy Verified 09/01/18 12:32 Review of Systems ROS Statement: Those systems with pertinent positive or pertinent negative responses have been documented in the HPI. ROS Other: All systems not noted in ROS Statement are negative. Past Medical History Past Medical History: Asthma, Skin Disorder Additional Past Medical History / Comment(s): detached retina at . Psoriasis, OVARIAN CYST, "heart problems". KIDNEY STONES,. PAST HX GI BLEEDING AND BRUISING History of Any Multi-Drug Resistant Organisms: MRSA Date of last positivie culture/infection: 08/24/2012 MDRO Source:: right hip Past Surgical History: Section, Hernia Repair Additional Past Surgical History / Comment(s): RIGHT OVARIAN CYST REMOVED Past Anesthesia/Blood Transfusion Reactions: No Reported Reaction Past Psychological History: Anxiety, Bipolar, Depression Smoking Status: Current every day smoker Past Alcohol Use History: Occasional Past Drug Use History: None Reported, Marijuana - Past Family History Mother Family Medical History: Cancer General Exam - General Exam Comments Initial Comments: Constitutional: NAD, AOX3, Pt has pleasant affect. HEENT: NC/AT, trachea midline, neck supple, no lymphadenopathy. Posterior pharynx non erythematous, without exudates. External ears appear normal, without discharge. Mucous membranes moist. Eyes PERRLA, EOM intact. There is no scleral icterus. No pallor noted. Cardiopulmonary: RRR, no murmurs, rubs or gallops, no JVD noted. Lungs CTAB in anterior and posterior esposito. No peripheral edema. Abdominal exam: Abdomen soft and non-distended. Abdomen non-tender to palpation in all 4 quadrants. Bowel sounds active in LLQ. No hepatosplenomegaly. No ecchymosis Neuro: CN II-XII grossly intact. No nuchal rigidity. MSK: Empty can test positive right-sided. Painful arc positive. AC joint mildly tender to palpation. No erythema, no ecchymoses. No posterior calf tenderness bilaterally, homans sign negative bilaterally. Posterior tibialis and radial pulse +2 bilaterally. Sensation intact in upper and lower extremities. Full active ROM in upper and lower extremities, 5/5 stregnth. Limitations: no limitations Course Vital Signs 09/01/18 12:30 Temperature 97.7 F Pulse Rate 101 H Respiratory 18 Rate Blood Pressure 101/70 O2 Sat by Pulse 98 Oximetry Medical Decision Making - Medical Decision Making 27-year-old female patient with past medical history of tubal ligation presents to ED with approximately 1 week of right shoulder pain. Patient reports that she felt pain in her anterior shoulder when picking up [id number]-old child. Patient states that she has had pain in her right shoulder with lifting and range of motion the last week. Patient denies any recent falls or trauma. Patient denies any other complaints. Patient denies any chest pain, shortness breath, abdominal pain. Pt VSS, afebrile. Physical exam displayed: Empty can test positive right-sided. Painful arc positive. AC joint mildly tender to palpation. No erythema, no ecchymoses. Right Shoulder Displayed No Acute Process. Patient Denied Any Analgesic. Patient Discharged. Patient Will Be Given Orthopedic Follow-Up. Patient to Follow up with Primary Care Provider. Patient Return to ER Condition Worsens in Any Way. Case discussed with Dr. Rizvi. Disposition Clinical Impression: Shoulder sprain Disposition: HOME SELF-CARE Condition: Stable Instructions (If sedation given, give patient instructions): Shoulder Sprain (ED) Additional Instructions: Patient to adhere to previously discussed treatment plan and will take medication(s) as directed. Patient to follow up with PCP in 1-2 days. Patient to return to ED if symptoms do not improve. Please follow-up with primary care provider in 1-2 days. Please follow-up with orthopedic consult. Please use ibuprofen as needed for pain and inflammation. Return to ER if condition worsens. Is patient prescribed a controlled substance at d/c from ED?: No Referrals: Amada Roblero MD [Primary Care Provider] - 1-2 days Gary Keene DO [Doctor of Osteopathic Medicine] - 1-2 days
== END 2018-09-01 13:33 | disposition home or self-care (01) ==
LOC: EC 12:24
DX: S43.401A Unspecified sprain of right shoulder joint, initial encounter (principal); F17.200 Nicotine dependence, unspecified, uncomplicated; Z86.14 Personal history of Methicillin resistant Staphylococcus aureus infection; Z98.51 Tubal ligation status; X58.XXXA Exposure to other specified factors, initial encounter; Y93.89 Activity, other specified
CPT/HCPCS: 99284

== ENCOUNTER 2018-10-26 04:10 | Emergency (ER) | payer MEDICARE, OTHER ==
[2018-10-26 04:39] LABS: Appearance,Urine Clear (Clear); Bilirubin,Urine Negative (Negative); Blood,Urine Negative (Negative); Color,Urine Yellow; Glucose,Urine (UA) Negative (Negative); Ketones,Urine Negative (Negative); Leukocyte Esterase,Urine Negative (Negative); Nitrite,Urine Negative (Negative); PH, Urine 6.5 (5.0-8.0); Protein,Urine Negative (Negative); Specific Gravity,Urine 1.023 (1.001-1.035)
[2018-10-26] MEDS ORDERED: ONDANSETRON 4 MG TAB PO STA (05:11)
--- NOTE | 2018-10-26 05:11 | ED ---
General Adult HPI - General Source: patient Mode of arrival: ambulatory Limitations: no limitations <Mckya Mcallister - Last Filed: 10/26/18 07:06> <Leonid Moss - Last Filed: 10/26/18 07:57> - General Chief complaint: Urogenital Stated complaint: abd pain Time Seen by Provider: 10/26/18 04:12 - History of Present Illness Initial comments: Dictation was produced using [employer] dictation software. please excuse any grammatical, word or spelling errors. Chief Complaint: 28-year-old female presents with pelvic discomfort over the last 3 days. Patient states she's History of Present Illness: 28 year old female she presents today with pelvic pain. She patient states it's in the suprapubic area. She states she's been having some vaginal spotting denies any overt bleeding. Patient sexually active however she does not feel she is . Patient's not concerned about STD. Denies any fever, chills or night sweats. Patient feels slightly nauseous however no vomiting. Patient last menstrual cycle was approximately 2 weeks ago. She is currently midcycle. Patient states she's had pain like this for was diagnosed with ovarian cysts and had it removed at [facility]. Patient refusing pelvic exam. The ROS documented in this emergency department record has been reviewed and confirmed by me. Those systems with pertinent positive or negative responses have been documented in the HPI. All other systems are other negative and/or noncontributory. PHYSICAL EXAM: General Impression: Alert and oriented x3, not in acute distress HEENT: Normocephalic atraumatic, extra-ocular movements intact, pupils equal and reactive to light bilaterally, mucous membranes moist. Cardiovascular: Heart regular rate and rhythm, S1&S2 audible, no murmurs, rubs or gallops Chest: Lungs clear to auscultation bilaterally, no rhonchi, no wheeze, no rales Abdomen: Bowel sounds present, abdomen soft, non-tender, non-distended, no organomegaly Musculoskeletal: Pulses present and equal in all extremities, no peripheral edema Motor: no focal deficits noted Neurological: CN II-XII grossly intact, no focal motor or sensory deficits noted Skin: Intact with no visualized rashes Psych: Normal affect and mood ED course: 28 yo female presents with chief complaint of pelvic pain. Vital sig ns upon arrival are within acceptable limits. Patient refusing pelvic exam. Patient given some Zofran for some nausea. Patient is signed out to Dr. Moss for follow-up of ultrasound studies. (Mckay Mcallister) - Related Data Allergies Allergy/AdvReac Type Severity Reaction Status Date / Time No Known Allergies Allergy Verified 10/26/18 04:23 Review of Systems ROS Other: All systems not noted in ROS Statement are negative. <Mckay Mcallister - Last Filed: 10/26/18 07:06> ROS Other: All systems not noted in ROS Statement are negative. <Leonid Moss - Last Filed: 10/26/18 07:57> ROS Statement: Those systems with pertinent positive or pertinent negative responses have been documented in the HPI. Past Medical History Past Medical History: Asthma, Skin Disorder Additional Past Medical History / Comment(s): detached retina at . Psoriasis, OVARIAN CYST, "heart problems". KIDNEY STONES,. PAST HX GI BLEEDING AND BRUISING History of Any Multi-Drug Resistant Organisms: MRSA Date of last positivie culture/infection: 08/24/2012 MDRO Source:: right hip Past Surgical History: Section, Hernia Repair Additional Past Surgical History / Comment(s): RIGHT OVARIAN CYST REMOVED Past Anesthesia/Blood Transfusion Reactions: No Reported Reaction Past Psychological History: Anxiety, Bipolar, Depression Smoking Status: Current every day smoker Past Alcohol Use History: Occasional Past Drug Use History: Marijuana - Past Family History Mother Family Medical History: Cancer <Mckay Mcallister - Last Filed: 10/26/18 07:06> General Exam Limitations: no limitations <Mckay Mcallister - Last Filed: 10/26/18 07:06> Course Vital Signs 10/26/18 10/26/18 04:19 06:14 Temperature 98.7 F 98.2 F Pulse Rate 93 80 Respiratory 19 18 Rate Blood Pressure 119/68 111/61 O2 Sat by Pulse 99 97 Oximetry Medical Decision Making - Radiology Data Radiology results: report reviewed (Ultrasound of the pelvis concerning for possible adenomyosis.) <Leonid Moss - Last Filed: 10/26/18 07:57> - Medical Decision Making Patient reevaluated and resting comfortably in bed. Patient updated on results and need for follow-up. Patient does state that she has an CARDIOPULMONARY TECHNICIAN AND EEG TECH she will follow-up with. Patient refuses to wait for discharge. (Leonid Moss) - Lab Data Lab Results 10/26/18 10/26/18 Range/Units 04:32 04:32 Urine Color Yellow Urine Appearance Clear (Clear) Urine pH 6.5 (5.0-8.0) Ur Specific Sophia 1.023 (1.001-1.035) Urine Protein Negative (Negative) Urine Glucose (UA) Negative (Negative) Urine Ketones Negative (Negative) Urine Blood Negative (Negative) Urine Nitrite Negative (Negative) Urine Bilirubin Negative (Negative) Urine Urobilinogen 4.0 (<2.0) mg/dL Ur Leukocyte Esterase Negative (Negative) Urine HCG, Qual Not Detected (Not Detectd) Disposition <Mckay Mcallister - Last Filed: 10/26/18 07:06> Is patient prescribed a controlled substance at d/c from ED?: No Time of Disposition: 07:57 <Leonid Moss - Last Filed: 10/26/18 07:57> Clinical Impression: Pelvic pain Disposition: HOME SELF-CARE Condition: Stable Instructions (If sedation given, give patient instructions): Pelvic Pain in Women (ED) Additional Instructions: Please follow-up with CARDIOPULMONARY TECHNICIAN AND EEG TECH in the next day or 2 for recheck. Return for increased pain, bleeding, fevers, worsening symptoms or other concerns. Referrals: Amada Roblero MD [Primary Care Provider] - 1-2 days Andriy Ferreira MD [STAFF PHYSICIAN] - 1-2 days
[2018-10-26 06:17] VITALS: BP 111/61; PULSE 80; RESP 18; TEMP 98.2
--- NOTE | 2018-10-26 07:39 | US ---
EXAMINATION TYPE: US transvaginal DATE OF EXAM: 10/26/2018 COMPARISON: Previous study dated 05/25/2017. CLINICAL HISTORY: Pain. Pelvic pain for 2 days. 2 c-sections TECHNIQUE: Transvaginal (TV) Date of LMP: end september EXAM MEASUREMENTS: Uterus: 8.3 x 4.0 x 6.6 cm Endometrial Stripe: 0.7 cm Right Ovary: 2.8 x 2.2 x 2.0 cm Left Ovary: 2.5 x 2.3 x 1.9 cm 1. Uterus: Anteverted heterogeneous 2. Endometrium: appears wnl 3. Right Ovary: follicles noted 4. Left Ovary: follicles noted Spectral, color and waveform doppler imaging shows good arterial and venous flow within the ovaries ; there is no evidence for ovarian torsion. 5. Bilateral Adnexa: appears wnl 6. Posterior cul-de-sac: wnl IMPRESSION: HETEROGENEITY OF THE UTERUS IS OF QUESTIONABLE SIGNIFICANCE AND MAY REPRESENT EARLY ADENOMYOSIS. CLIN ICAL CORRELATION WOULD BE REQUIRED.
== END 2018-10-26 08:21 | disposition home or self-care (01) ==
LOC: EC 04:10
DX: R10.2 Pelvic and perineal pain (principal); R11.0 Nausea; F17.200 Nicotine dependence, unspecified, uncomplicated; Z87.42 Personal history of other diseases of the female genital tract; Z86.14 Personal history of Methicillin resistant Staphylococcus aureus infection
CPT/HCPCS: 76830; 81003; 81025; 87086; 93975; 99284

== ENCOUNTER 2018-12-20 15:14 | Emergency (ER) | payer MEDICARE, OTHER ==
[2018-12-20 15:19] VITALS: RESP 18
[2018-12-20] MEDS ORDERED: SODIUM CHLORIDE 0.9% 1,000 ML IV ONE (15:20)
--- NOTE | 2018-12-20 15:35 | ED ---
Abdominal Pain HPI - General Chief Complaint: Abdominal Pain Stated Complaint: abd pain Time Seen by Provider: 12/20/18 15:19 Source: patient Mode of arrival: ambulatory Limitations: no limitations - History of Present Illness Initial Comments: 28-year-old female with no significant past medical history presenting today for chief complaint of abdominal pain and diarrhea x 2 days. Patient states that 2 nights ago she began experiencing left upper-midabdominal pain. She states at times radiates diagonally down towards the right lower quadrant. She states that yesterday morning she began experiencing diarrhea and the pain persisted and has been constant. She states she contacted her primary care provider who told her to present to the ER she developed a fever. Patient states she has had a fever 100.1 at home. She denies any sick contacts she states that she has been eating the same things as her son who has not been sick. Patient describes the diarrhea is brown. Denies constipation. Patient states she has had a total of 4 episodes today. She denies vomiting she has been nauseous. Patient has an appetite. Patient denies any lower pelvic pain. Remaining review of systems negative. Upon arrival patient appears uncomfortable however no signs of toxicity. - Related Data Previous Rx's Medication Instructions Recorded Dicyclomine [Bentyl] 10 mg PO QID 7 Days #21 capsule 12/20/18 Allergies Allergy/AdvReac Type Severity Reaction Status Date / Time No Known Allergies Allergy Verified 12/20/18 15:17 Review of Systems ROS Statement: Those systems with pertinent positive or pertinent negative responses have been documented in the HPI. ROS Other: All systems not noted in ROS Statement are negative. Past Medical History Past Medical History: Asthma, Skin Disorder Additional Past Medical History / Comment(s): detached retina at . Psoriasis, OVARIAN CYST, "heart problems". KIDNEY STONES,. PAST HX GI BLEEDING AND BRUISING History of Any Multi-Drug Resistant Organisms: MRSA Date of last positivie culture/infection: 08/24/2012 MDRO Source:: right hip Past Surgical History: Section, Hernia Repair Additional Past Surgical History / Comment(s): RIGHT OVARIAN CYST REMOVED Past Anesthesia/Blood Transfusion Reactions: No Reported Reaction Past Psychological History: Anxiety, Bipolar, Depression Smoking Status: Current some day smoker Past Alcohol Use History: Occasional Past Drug Use History: Marijuana - Past Family History Mother Family Medical History: Cancer General Exam - General Exam Comments Initial Comments: General: The patient is awake and alert, in no distress, and does not appear acutely ill. Eye: +3mm pupils are equal, round and reactive to light, extra-ocular movements are intact. No nystagmus. There is normal conjunctiva bilaterally. No signs of icterus. Ears, nose, mouth and throat: There are moist mucous membranes and no oral lesions. Neck: The neck is supple, there is no tenderness or JVD. Cardiovascular: There is a regular rate and rhythm. No murmur, rub or gallop is appreciated. Respiratory: Lungs are clear to auscultation, respirations are non-labored, breath sounds are equal. No wheezes, stridor, rales, or rhonchi. Gastrointestinal: Soft, non-distended, epigastric and periumbilical pain to deep palpation, no tenderness of McBurneys point, the abdomen without masses or organomegaly noted. There is no rebound or guarding present. No CVA tenderness. Bowel sounds are unremarkable. (-) Heel jar. Musculoskeletal: Normal ROM, no tenderness. Strength 5/5. Sensation intact. Pulses equal bilaterally 2+. Neurological: A&O x 3. CN II-XII intact, There are no obvious motor or sensory deficits. Coordination appears grossly intact. Speech is normal. Skin: Skin is warm and dry and no rashes or lesions are noted. Psychiatric: Cooperative, appropriate mood & affect, normal judgment. Limitations: no limitations Course Vital Signs 12/20/18 12/20/18 12/20/18 15:16 16:05 17:35 Temperature 98.3 F 98.7 F 98.7 F Pulse Rate 85 82 82 Respiratory 18 18 18 Rate Blood Pressure 106/71 118/75 106/51 O2 Sat by Pulse 99 97 97 Oximetry Medical Decision Making - Medical Decision Making 28-year-old presenting for 2 days of diarrhea abdominal pain. Patient had periumbilical pain. However there is no appreciated tenderness at McBurney's point. Patient states she does have an appetite. States she did have fever home afebrile upon arrival denies taking any medications. No leukocytosis. Denies pelvic pain/complaints. CT negative for appendicitis. Findings more consistent with enteritis. Patient was given Bentyl for cramping. Patient does not appear to have acute abdomen. Patient will be discharged with primary care follow-up. As well as a prescription for Bentyl. Patient is agreeable with this care plan and discharge at this time. - Lab Data Result diagrams: 12/20/18 16:05 12/20/18 16:05 Lab Results 12/20/18 12/20/18 12/20/18 Range/Units 16:05 16:05 Unknown WBC 7.9 (3.8-10.6) k/uL RBC 4.16 (3.80-5.40) m/uL Hgb 12.5 (11.4-16.0) gm/dL Hct 37.2 (34.0-46.0) % MCV 89.3 (80.0-100.0) fL MCH 30.2 (25.0-35.0) pg MCHC 33.8 (31.0-37.0) g/dL RDW 14.9 (11.5-15.5) % Plt Count 236 (150-450) k/uL Neutrophils % 66 % Lymphocytes % 26 % Monocytes % 4 % Eosinophils % 3 % Basophils % 1 % Neutrophils # 5.2 (1.3-7.7) k/uL Lymphocytes # 2.1 (1.0-4.8) k/uL Monocytes # 0.3 (0-1.0) k/uL Eosinophils # 0.2 (0-0.7) k/uL Basophils # 0.0 (0-0.2) k/uL Sodium 139 (137-145) mmol/L Potassium 3.9 (3.5-5.1) mmol/L Chloride 108 H (98-107) mmol/L Carbon Dioxide 23 (22-30) mmol/L Anion Gap 8 mmol/L BUN 20 H (7-17) mg/dL Creatinine 0.64 (0.52-1.04) mg/dL Est GFR (CKD-EPI)AfAm >90 (>60 ml/min/1.73 sqM) Est GFR (CKD-EPI)NonAf >90 (>60 ml/min/1.73 sqM) Glucose 94 (74-99) mg/dL Calcium 8.9 (8.4-10.2) mg/dL Total Bilirubin 0.3 (0.2-1.3) mg/dL AST 16 (14-36) U/L ALT 11 (9-52) U/L Alkaline Phosphatase 56 (38-126) U/L Total Protein 6.8 (6.3-8.2) g/dL Albumin 4.1 (3.5-5.0) g/dL Lipase 83 (23-300) U/L Urine Color Urine Appearance (Clear) Urine pH (5.0-8.0) Ur Specific [place] (1.001-1.035) Urine Protein (Negative) Urine Glucose (UA) (Negative) Urine Ketones (Negative) Urine Blood (Negative) Urine Nitrite (Negative) Urine Bilirubin (Negative) Urine Urobilinogen (<2.0) mg/dL Ur Leukocyte Esterase (Negative) Urine HCG, Qual Not Detected (Not Detectd) 12/20/18 Range/Units Unknown WBC (3.8-10.6) k/uL RBC (3.80-5.40) m/uL Hgb (11.4-16.0) gm/dL Hct (34.0-46.0) % MCV (80.0-100.0) fL MCH (25.0-35.0) pg MCHC (31.0-37.0) g/dL RDW (11.5-15.5) % Plt Count (150-450) k/uL Neutrophils % % Lymphocytes % % Monocytes % % Eosinophils % % Basophils % % Neutrophils # (1.3-7.7) k/uL Lymphocytes # (1.0-4.8) k/uL Monocytes # (0-1.0) k/uL Eosinophils # (0-0.7) k/uL Basophils # (0-0.2) k/uL Sodium (137-145) mmol/L Potassium (3.5-5.1) mmol/L Chloride (98-107) mmol/L Carbon Dioxide (22-30) mmol/L Anion Gap mmol/L BUN (7-17) mg/dL Creatinine (0.52-1.04) mg/dL Est GFR (CKD-EPI)AfAm (>60 ml/min/1.73 sqM) Est GFR (CKD-EPI)NonAf (>60 ml/min/1.73 sqM) Glucose (74-99) mg/dL Calcium (8.4-10.2) mg/dL Total Bilirubin (0.2-1.3) mg/dL AST (14-36) U/L ALT (9-52) U/L Alkaline Phosphatase (38-126) U/L Total Protein (6.3-8.2) g/dL Albumin (3.5-5.0) g/dL Lipase (23-300) U/L Urine Color Yellow Urine Appearance Clear (Clear) Urine pH 5.5 (5.0-8.0) Ur Specific [place] 1.032 (1.001-1.035) Urine Protein Negative (Negative) Urine Glucose (UA) Negative (Negative) Urine Ketones Negative (Negative) Urine Blood Negative (Negative) Urine Nitrite Negative (Negative) Urine Bilirubin Negative (Negative) Urine Urobilinogen <2.0 (<2.0) mg/dL Ur Leukocyte Esterase Negative (Negative) Urine HCG, Qual (Not Detectd) Disposition Clinical Impression: Enteritis, Diarrhea Disposition: HOME SELF-CARE Condition: Good Instructions (If sedation given, give patient instructions): Enteritis (ED) Additional Instructions: Please use medication as discussed. Please follow-up with family doctor in the next 2 days. Please return to emergency room if the symptoms increase or worsen or for any other concerns. Prescriptions: Dicyclomine [Bentyl] 10 mg PO QID 7 Days #21 capsule Is patient prescribed a controlled substance at d/c from ED?: No Referrals: Amada Roblero MD [Primary Care Provider] - 1-2 days Time of Disposition: 17:12
[2018-12-20 15:54] LABS: Appearance,Urine Clear (Clear); Bilirubin,Urine Negative (Negative); Blood,Urine Negative (Negative); Color,Urine Yellow; Glucose,Urine (UA) Negative (Negative); Ketones,Urine Negative (Negative); Leukocyte Esterase,Urine Negative (Negative); Nitrite,Urine Negative (Negative); PH, Urine 5.5 (5.0-8.0); Protein,Urine Negative (Negative); Specific Gravity,Urine 1.032 (1.001-1.035); Urobilinogen,Urine <2.0 mg/dL (<2.0)
[2018-12-20 16:07] VITALS: PULSE 82; TEMP 98.7
[2018-12-20 16:16] LABS: Basophils % (A) 1 %; Eosinophils # (A) 0.2 k/uL (0-0.7); Eosinophils % (A) 3 %; HCT 37.2 % (34.0-46.0); HGB 12.5 gm/dL (11.4-16.0); Lymphocytes # (A) 2.1 k/uL (1.0-4.8); Lymphocytes % (A) 26 %; MCH 30.2 pg (25.0-35.0); MCHC 33.8 g/dL (31.0-37.0); MCV 89.3 fL (80.0-100.0); Mean Platelet Volume 6.9; Monocytes # (A) 0.3 k/uL (0-1.0); Monocytes % (A) 4 %; Neutrophils # (A) 5.2 k/uL (1.3-7.7); Neutrophils % (A) 66 %; Platelet Count 236 k/uL (150-450); RBC 4.16 m/uL (3.80-5.40); RDW 14.9 % (11.5-15.5); WBC 7.9 k/uL (3.8-10.6)
[2018-12-20 16:26] LABS: ALT 11 U/L (9-52); AST 16 U/L (14-36); African American GFR (CKD) >90 (>60 ml/min/1.73 sqM); Albumin 4.1 g/dL (3.5-5.0); Alkaline Phosphatase 56 U/L (38-126); Anion Gap 8 mmol/L; Blood Urea Nitrogen 20 mg/dL (7-17); Calcium 8.9 mg/dL (8.4-10.2); Carbon Dioxide 23 mmol/L (22-30); Chloride 108 mmol/L (98-107); Glucose 94 mg/dL (74-99); Non-African American GFR(CKD) >90 (>60 ml/min/1.73 sqM); Potassium 3.9 mmol/L (3.5-5.1); Sodium 139 mmol/L (137-145); Total Bilirubin 0.3 mg/dL (0.2-1.3); Total Protein 6.8 g/dL (6.3-8.2)
[2018-12-20] MEDS: MORPHINE SULFATE 2 MG/ML SYRINGE IVP STA ×2 (16:32→16:35)
--- NOTE | 2018-12-20 16:59 | CT ---
EXAMINATION TYPE: CT abdomen pelvis w con DATE OF EXAM: 12/20/2018 COMPARISON: Prior CT 03/19/2017 HISTORY: Periumbilical pain. CT DLP: 1064.7 mGycm Automated exposure control for dose reduction was used. TECHNIQUE: Helical acquisition of images from the lung bases through the pelvis have been completed. CONTRAST: Performed without Oral Contrast and with IV Contrast, patient injected with 100 mL of Isovue 300. FINDINGS: LUNG BASES: No significant abnormality is appreciated. AORTA: No significant abnormality is appreciated. LIVER/GB: Liver is enlarged. Gallbladder is contracted. PANCREAS: No significant abnormality is seen. SPLEEN: Upper limit of normal for size ADRENALS: No significant abnormality is seen. KIDNEYS: No significant abnormality is seen. REPRODUCTIVE ORGANS: Fallopian tubal ligation clips are in place. Uterus and adnexal structures other pugh unremarkable. BOWEL: There are some small bowel loops with thickened wall present, questionable thickening of the rectosigmoid colon, findings could be due to lack of distention at this level. Visualized portions of the appendix are normal. FREE AIR: No Free Air visible. ASCITES: None visible. PELVIC ADENOPATHY: None visualized. RETROPERITONEAL ADENOPATHY: No Retroperitoneal Adenopathy visible. URINARY BLADDER: No significant abnormality is seen. OSSEOUS STRUCTURES: Bilateral spondylolysis present at L5, no evident listhesis. IMPRESSION: CORRELATE FOR ENTERITIS, COLITIS. NO EVIDENT APPENDICITIS. HEPATOMEGALY.
[2018-12-20] MEDS ORDERED: DICYCLOMINE 10 MG CAP PO STA (17:28)
[2018-12-20 17:36] VITALS: BP 106/51
== END 2018-12-20 17:36 | disposition home or self-care (01) ==
LOC: EC 15:14
DX: K52.9 Noninfective gastroenteritis and colitis, unspecified (principal); F17.200 Nicotine dependence, unspecified, uncomplicated
CPT/HCPCS: 99284; 96360; 36415; 80053; 83690; 85025; 81003; 81025; 74177; Q9967

== ENCOUNTER 2019-04-24 17:40 | Emergency (ER) | payer MEDICARE, OTHER ==
[2019-04-24] MEDS ORDERED: MORPHINE SULFATE 4 MG/ML SYRINGE IVP STA (18:21)
[2019-04-24] MEDS ORDERED: ONDANSETRON 4 MG/2 ML VIAL IVP STA (18:21)
--- NOTE | 2019-04-24 18:23 | ED ---
Abdominal Pain HPI - General Chief Complaint: Abdominal Pain Stated Complaint: Abd pain Time Seen by Provider: 04/24/19 17:50 Source: patient Mode of arrival: ambulatory Limitations: no limitations - History of Present Illness Initial Comments: 28yo female presented today for chief complaint of abdominal pain times one day. Patient states she has had nausea vomiting diarrhea and periumbilical abdominal pain times one day. Patient states she has been eating and drinking however feels nausea and when she does so. Patient denies fevers. Patient denies right lower quadrant pain or radiation of the pain. Patient denies any chest pain shortness of breath. Patient denies melena hematochezia, emesis or urinary symptoms. Patient denies any lower pelvic pain. Her vaginal bleeding patient denies remaining review of system negative. - Related Data Previous Rx's Medication Instructions Recorded Dicyclomine [Bentyl] 10 mg PO QID 7 Days #21 capsule 12/20/18 Ondansetron Odt [Zofran Odt] 4 mg PO Q8HR PRN 5 Days #15 tab 04/24/19 Allergies Allergy/AdvReac Type Severity Reaction Status Date / Time No Known Allergies Allergy Verified 04/24/19 17:49 Review of Systems ROS Statement: Those systems with pertinent positive or pertinent negative responses have been documented in the HPI. ROS Other: All systems not noted in ROS Statement are negative. Past Medical History Past Medical History: Asthma, Skin Disorder Additional Past Medical History / Comment(s): detached retina at . Psoriasis, OVARIAN CYST, "heart problems". KIDNEY STONES,. PAST HX GI BLEEDING AND BRUISING History of Any Multi-Drug Resistant Organisms: MRSA Date of last positivie culture/infection: 08/24/2012 MDRO Source:: right hip Past Surgical History: Section, Hernia Repair Additional Past Surgical History / Comment(s): RIGHT OVARIAN CYST REMOVED Past Anesthesia/Blood Transfusion Reactions: No Reported Reaction Past Psychological History: Anxiety, Bipolar, Depression Smoking Status: Current some day smoker Past Alcohol Use History: Occasional Past Drug Use History: Marijuana - Past Family History Mother Family Medical History: Cancer General Exam - General Exam Comments Initial Comments: General: The patient is awake and alert, in no distress Eye: +3 mm pupils are equal, round and reactive to light, extra-ocular moveme nts are intact. No nystagmus. There is normal conjunctiva bilaterally. No signs of icterus. Ears, nose, mouth and throat: There are moist mucous membranes and no oral le sions. Neck: The neck is supple, there is no tenderness or JVD. Cardiovascular: There is a regular rate and rhythm. No murmur, rub or gallop is appreciated. Respiratory: Lungs are clear to auscultation, respirations are non-labored, breath sounds are equal. No wheezes, stridor, rales, or rhonchi. Gastrointestinal: Soft, non-distended, mild-moderate tenderness to palpation of the epigastric, area just superior to the belly bottom, remaining abdomen is nontender and without masses or organomegaly noted. There is no rebound or guarding present. Musculoskeletal: Normal ROM, no tenderness. Strength 5/5. Sensation intact. Radial pulses equal bilaterally 2+. Neurological: A&O x 3. CN II-XII intact grossly, There are no obvious motor or sensory deficits. Coordination appears grossly intact. Speech is normal. Skin: Skin is warm and dry and no rashes or lesions are noted. Psychiatric: Cooperative, appropriate mood & affect, normal judgment. Limitations: no limitations Course Vital Signs 04/24/19 04/24/19 17:47 20:16 Temperature 97.2 F L 98 F Pulse Rate 79 77 Respiratory 20 16 Rate Blood Pressure 114/74 121/71 O2 Sat by Pulse 100 98 Oximetry Medical Decision Making - Medical Decision Making 28-year-old female nontoxic in appearance presenting from. Umbilical abdominal pain epigastric and periumbilical pain on exam no right lower quadrant or pelvic tenderness. Patient denies urinary symptoms she has symptoms associated such as vomiting diarrhea. Given the location of the pain with vomiting diarrhea CT abdomen and pelvis was obtained to rule out appendicitis. There's findings of ovarian cysts however patient has no pain in an area patient states she has known history and findings were discussed. Otherwise no other acute intra- abdominal process patient nausea control emergency department after Reglan. She was requested and Zofran starter pack. Patient does not appear dehydrated vital signs stable test negative at this time I feel she is stable for discharge with outpatient primary care follow-up at term hemorrhage discussed at length the patient was discharged appearing well - Lab Data Result diagrams: 04/24/19 18:30 04/24/19 18:30 Lab Results 12/19/19 12/19/19 12/19/19 Range/Units 18:30 18:30 18:30 WBC 7.0 (3.8-10.6) k/uL RBC 4.57 (3.80-5.40) m/uL Hgb 13.4 (11.4-16.0) gm/dL Hct 41.0 (34.0-46.0) % MCV 89.8 (80.0-100.0) fL MCH 29.4 (25.0-35.0) pg MCHC 32.7 (31.0-37.0) g/dL RDW 12.6 (11.5-15.5) % Plt Count 215 (150-450) k/uL Neutrophils % 62 % Lymphocytes % 28 % Monocytes % 4 % Eosinophils % 3 % Basophils % 2 % Neutrophils # 4.3 (1.3-7.7) k/uL Lymphocytes # 1.9 (1.0-4.8) k/uL Monocytes # 0.3 (0-1.0) k/uL Eosinophils # 0.2 (0-0.7) k/uL Basophils # 0.1 (0-0.2) k/uL Sodium 140 (137-145) mmol/L Potassium 3.8 (3.5-5.1) mmol/L Chloride 105 (98-107) mmol/L Carbon Dioxide 26 (22-30) mmol/L Anion Gap 9 mmol/L BUN 17 (7-17) mg/dL Creatinine 0.60 (0.52-1.04) mg/dL Est GFR (CKD-EPI)AfAm >90 (>60 ml/min/1.73 sqM) Est GFR (CKD-EPI)NonAf >90 (>60 ml/min/1.73 sqM) Glucose 99 (74-99) mg/dL Calcium 9.3 (8.4-10.2) mg/dL Total Bilirubin 0.5 (0.2-1.3) mg/dL AST 21 (14-36) U/L ALT 13 (4-34) U/L Alkaline Phosphatase 56 (38-126) U/L Total Protein 7.4 (6.3-8.2) g/dL Albumin 4.6 (3.5-5.0) g/dL Lipase 43 (23-300) U/L Urine Color Urine Appearance (Clear) Urine pH (5.0-8.0) Ur Specific [place] (1.001-1.035) Urine Protein (Negative) Urine Glucose (UA) (Negative) Urine Ketones (Negative) Urine Blood (Negative) Urine Nitrite (Negative) Urine Bilirubin (Negative) Urine Urobilinogen (<2.0) mg/dL Ur Leukocyte Esterase (Negative) Urine HCG, Qual Not Detected (Not Detectd) 04/24/19 Range/Units 18:30 WBC (3.8-10.6) k/uL RBC (3.80-5.40) m/uL Hgb (11.4-16.0) gm/dL Hct (34.0-46.0) % MCV (80.0-100.0) fL MCH (25.0-35.0) pg MCHC (31.0-37.0) g/dL RDW (11.5-15.5) % Plt Count (150-450) k/uL Neutrophils % % Lymphocytes % % Monocytes % % Eosinophils % % Basophils % % Neutrophils # (1.3-7.7) k/uL Lymphocytes # (1.0-4.8) k/uL Monocytes # (0-1.0) k/uL Eosinophils # (0-0.7) k/uL Basophils # (0-0.2) k/uL Sodium (137-145) mmol/L Potassium (3.5-5.1) mmol/L Chloride (98-107) mmol/L Carbon Dioxide (22-30) mmol/L Anion Gap mmol/L BUN (7-17) mg/dL Creatinine (0.52-1.04) mg/dL Est GFR (CKD-EPI)AfAm (>60 ml/min/1.73 sqM) Est GFR (CKD-EPI)NonAf (>60 ml/min/1.73 sqM) Glucose (74-99) mg/dL Calcium (8.4-10.2) mg/dL Total Bilirubin (0.2-1.3) mg/dL AST (14-36) U/L ALT (4-34) U/L Alkaline Phosphatase (38-126) U/L Total Protein (6.3-8.2) g/dL Albumin (3.5-5.0) g/dL Lipase (23-300) U/L Urine Color Light Yellow Urine Appearance Clear (Clear) Urine pH 6.5 (5.0-8.0) Ur Specific [place] 1.016 (1.001-1.035) Urine Protein Negative (Negative) Urine Glucose (UA) Negative (Negative) Urine Ketones Negative (Negative) Urine Blood Negative (Negative) Urine Nitrite Negative (Negative) Urine Bilirubin Negative (Negative) Urine Urobilinogen <2.0 (<2.0) mg/dL Ur Leukocyte Esterase Negative (Negative) Urine HCG, Qual (Not Detectd) Disposition Clinical Impression: Abdominal pain Disposition: HOME SELF-CARE Condition: Good Instructions (If sedation given, give patient instructions): Abdominal Pain (ED ) Additional Instructions: Please use medication as discussed. Please follow-up with family doctor in the next 2 days. Please return to emergency room if the symptoms increase or worsen or for any other concerns. Prescriptions: Ondansetron Odt [Zofran Odt] 4 mg PO Q8HR PRN 5 Days #15 tab PRN Reason: Nausea Is patient prescribed a controlled substance at d/c from ED?: No Referrals: Amada Roblero MD [Primary Care Provider] - 1-2 days Time of Disposition: 20:06
[2019-04-24] MEDS ORDERED: SODIUM CHLORIDE 0.9% 1,000 ML IV ONE (18:37)
[2019-04-24 18:43] LABS: Basophils # (A) 0.1 k/uL (0-0.2); Basophils % (A) 2 %; Eosinophils # (A) 0.2 k/uL (0-0.7); Eosinophils % (A) 3 %; HGB 13.4 gm/dL (11.4-16.0); Lymphocytes # (A) 1.9 k/uL (1.0-4.8); Lymphocytes % (A) 28 %; MCH 29.4 pg (25.0-35.0); MCHC 32.7 g/dL (31.0-37.0); MCV 89.8 fL (80.0-100.0); Mean Platelet Volume 7.5; Monocytes # (A) 0.3 k/uL (0-1.0); Monocytes % (A) 4 %; Neutrophils # (A) 4.3 k/uL (1.3-7.7); Neutrophils % (A) 62 %; Platelet Count 215 k/uL (150-450); RBC 4.57 m/uL (3.80-5.40); RDW 12.6 % (11.5-15.5)
[2019-04-24] MEDS ORDERED: SODIUM CHLORIDE 0.9% 1,000 ML IV SCH (18:45)
[2019-04-24 18:50] LABS: Appearance,Urine Clear (Clear); Bilirubin,Urine Negative (Negative); Blood,Urine Negative (Negative); Color,Urine Light Yellow; Glucose,Urine (UA) Negative (Negative); Ketones,Urine Negative (Negative); Leukocyte Esterase,Urine Negative (Negative); Nitrite,Urine Negative (Negative); PH, Urine 6.5 (5.0-8.0); Protein,Urine Negative (Negative); Specific Gravity,Urine 1.016 (1.001-1.035); Urobilinogen,Urine <2.0 mg/dL (<2.0)
[2019-04-24 18:52] LABS: ALT 13 U/L (4-34); AST 21 U/L (14-36); African American GFR (CKD) >90 (>60 ml/min/1.73 sqM); Albumin 4.6 g/dL (3.5-5.0); Alkaline Phosphatase 56 U/L (38-126); Anion Gap 9 mmol/L; Blood Urea Nitrogen 17 mg/dL (7-17); Calcium 9.3 mg/dL (8.4-10.2); Carbon Dioxide 26 mmol/L (22-30); Chloride 105 mmol/L (98-107); Glucose 99 mg/dL (74-99); Non-African American GFR(CKD) >90 (>60 ml/min/1.73 sqM); Potassium 3.8 mmol/L (3.5-5.1); Sodium 140 mmol/L (137-145); Total Bilirubin 0.5 mg/dL (0.2-1.3); Total Protein 7.4 g/dL (6.3-8.2)
--- NOTE | 2019-04-24 20:00 | CT ---
EXAM: CT Abdomen and Pelvis With Intravenous Contrast CLINICAL HISTORY: Reason: periumbilical pain, moderate pain, evaluate for appendicitis TECHNIQUE: Axial computed tomography images of the abdomen and pelvis with intravenous contrast. Sagittal and coronal reformatted images were created and reviewed. CTDI is 28 mGy and DLP is 1304 mGy-cm. This CT exam was performed using one or more of the following dose reduction techniques: automated exposure control, adjustment of the mA and/or kV according to patient size, and/or use of iterative reconstruction technique. COMPARISON: CT abdomen and pelvis dated 12/20/18 FINDINGS: Lung bases: Unremarkable. No consolidation. No effusions. ABDOMEN: Liver: Unremarkable. No suspicious parenchymal lesions Gallbladder and bile ducts: Unremarkable. No calcified stones. No ductal dilation. Pancreas: Unremarkable. No mass. No ductal dilation. Spleen: Unremarkable. No splenomegaly. Adrenals: Unremarkable. No mass. Kidneys and ureters: Unremarkable. No solid mass. No hydronephrosis. Stomach and bowel: Unremarkable. No obstruction. No mucosal thickening. PELVIS: Appendix: The appendix appears normal. Bladder: Unremarkable. No visible stones. Reproductive: 2.8 x 2.8 x 1.7 cm peripherally enhancing right adnexal cyst (right ovary is posterior to and superior to the uterus). ABDOMEN and PELVIS: Intraperitoneal space: Trace free fluid in the pelvic cul-de-sac, likely physiologic. No free air. Bones/joints: Bilateral L5 spondylolysis without evidence of significant spondylolisthesis. No acute fracture. No dislocation. Soft tissues: Unremarkable. Vasculature: Unremarkable. No abdominal aortic aneurysm. Lymph nodes: Unremarkable. No enlarged lymph nodes. Tubes, lines and devices: Radiodense clips seen in bilateral uterine tubes. IMPRESSION: 1. The appendix appears normal. 2. 2.8 x 2.8 x 1.7 cm peripherally enhancing right adnexal cyst (right ovary is posterior to and superior to the uterus). This likely represents a corpus luteum cyst. 3. Trace free fluid in the pelvic cul-de-sac, likely physiologic. 4. Bilateral L5 spondylolysis without evidence of significant spondylolisthesis.
[2019-04-24] MEDS ORDERED: METOCLOPRAMIDE 5 MG/ML 2 ML VIAL IVP STA (20:01)
[2019-04-24] MEDS ORDERED: ONDANSETRON 4 MG ODT STARTER PACK 2 TAB BTL PO STA (20:11)
[2019-04-24 20:18] VITALS: BP 121/71; PULSE 77; RESP 16; TEMP 98
== END 2019-04-24 20:20 | disposition home or self-care (01) ==
LOC: EC 17:40
DX: R10.33 Periumbilical pain (principal); R10.13 Epigastric pain; R11.10 Vomiting, unspecified; R19.7 Diarrhea, unspecified; N83.209 Unspecified ovarian cyst, unspecified side; F17.200 Nicotine dependence, unspecified, uncomplicated; Z87.442 Personal history of urinary calculi; Z87.19 Personal history of other diseases of the digestive system; Z86.14 Personal history of Methicillin resistant Staphylococcus aureus infection; Z98.890 Other specified postprocedural states
CPT/HCPCS: 36415; 80053; 83690; 85025; 81003; 81025; 74177; 99284; 96374; 96375 ×2; 96361 ×2; J2270; J2765; J2405; S0119; Q9967

== ENCOUNTER 2019-05-08 11:58 | Emergency (ER) | payer MEDICARE, OTHER ==
[2019-05-08] MEDS ORDERED: SODIUM CHLORIDE 0.9% 1,000 ML IV STA (13:00)
[2019-05-08] MEDS ORDERED: MAG HYDROX/AL HYDROX/SIMETH 30 ML, HYOSCYAMINE ELIXIR 10 ML, LIDOCAINE VISCOUS 2% 10 ML PO STA ×3 (13:01)
[2019-05-08 13:32] LABS: Appearance,Urine Clear (Clear); Bilirubin,Urine Negative (Negative); Blood,Urine Trace (Negative); Color,Urine Yellow; Glucose,Urine (UA) Negative (Negative); Ketones,Urine Negative (Negative); Leukocyte Esterase,Urine Negative (Negative); Mucus,Urine Rare /hpf; Nitrite,Urine Negative (Negative); Protein,Urine Negative (Negative); RBC,Urine <1 /hpf (0-5); Specific Gravity,Urine 1.016 (1.001-1.035); Squamous Epithelial Cell,Urine 1 /hpf (0-4); Urobilinogen,Urine <2.0 mg/dL (<2.0); WBC,Urine 1 /hpf (0-5)
[2019-05-08] MEDS ORDERED: ONDANSETRON 4 MG/2 ML VIAL IVP STA (13:35)
[2019-05-08 13:41] LABS: Basophils % (A) 0 %; Eosinophils # (A) 0.1 k/uL (0-0.7); Eosinophils % (A) 1 %; HCT 39.3 % (34.0-46.0); HGB 13.3 gm/dL (11.4-16.0); Lymphocytes # (A) 0.9 k/uL (1.0-4.8); Lymphocytes % (A) 16 %; MCV 88.2 fL (80.0-100.0); Mean Platelet Volume 7.2; Monocytes # (A) 0.2 k/uL (0-1.0); Monocytes % (A) 4 %; Neutrophils # (A) 4.3 k/uL (1.3-7.7); Neutrophils % (A) 77 %; Platelet Count 192 k/uL (150-450); RBC 4.45 m/uL (3.80-5.40); RDW 12.7 % (11.5-15.5); WBC 5.6 k/uL (3.8-10.6)
[2019-05-08 13:42] LABS: ALT 13 U/L (4-34); AST 18 U/L (14-36); African American GFR (CKD) >90 (>60 ml/min/1.73 sqM); Albumin 4.2 g/dL (3.5-5.0); Alkaline Phosphatase 69 U/L (38-126); Anion Gap 9 mmol/L; Blood Urea Nitrogen 15 mg/dL (7-17); Calcium 9.2 mg/dL (8.4-10.2); Carbon Dioxide 23 mmol/L (22-30); Chloride 107 mmol/L (98-107); Glucose 92 mg/dL (74-99); Non-African American GFR(CKD) >90 (>60 ml/min/1.73 sqM); Sodium 139 mmol/L (137-145); Total Bilirubin 0.7 mg/dL (0.2-1.3); Total Protein 6.9 g/dL (6.3-8.2)
[2019-05-08] MEDS: MORPHINE SULFATE 4 MG/ML SYRINGE IVP STA ×2 (13:55→14:52)
--- NOTE | 2019-05-08 15:07 | XR ---
EXAMINATION TYPE: XR KUB DATE OF EXAM: 05/08/2019 CLINICAL DATA: 28-year-old female with abdominal pain and vomiting, [facility] COMPARISON: 02/09/2013 FINDINGS: Lung bases are clear. No evidence for free intraperitoneal air. No dilated small bowel or air-fluid levels. Scattered air seen throughout the colon extending distall y to the rectum without significant stool burden. Bilateral tubal ligation clips. No suspicious calcifications identified. IMPRESSION: No evidence of bowel obstruction or free intraperitoneal air.
--- NOTE | 2019-05-08 15:14 | US ---
EXAMINATION TYPE: US gallbladder DATE OF EXAM: 05/08/2019 COMPARISON: Multiple CT's and US's. CLINICAL HISTORY: epigastic / RUQ pain. EXAM MEASUREMENTS: Liver Length: 16.6 cm Gallbladder Wall: 0.2 cm CBD: 0.4 cm Right Kidney: 11.3 x 4.4 x 5.5 cm Pancreas: visualized portions wnl Liver: wnl Gallbladder: No stones seen Evidence for sonographic Enriquez's sign: No CBD: wnl Right Kidney: No hydronephrosis or masses seen IMPRESSION: No sonographic evidence of cholelithiasis nor acute cholecystitis.
--- NOTE | 2019-05-08 16:27 | ED ---
General Adult HPI - General Chief complaint: Abdominal Pain Stated complaint: Abd pain Time Seen by Provider: 05/08/19 12:37 Source: patient, RN notes reviewed, old records reviewed Mode of arrival: ambulatory Limitations: no limitations - History of Present Illness Initial comments: 28 year old female patient presents to ED 50 complaint epigastric abdominal pain nausea vomiting diarrhea. Patient was began approximately 2 AM woke her up from sleep. Denies a chance being . Patient has had multiple evaluations for abdominal pain including CT abdomen and pelvis performed 12/20 and 04/24 pf 2019 those displayed ovarian cyst, gastroenteritis. Reports that the pain is sharp in nature. Patient was that she believes that is her gallbladder causing this difficulty. Denies any other complaints at this time. Systemic: Pt denies fatigue, fever/chills, rash. Pt denies weakness, night sweats, weight loss. Neuro: Pt denies headache, visual disturbances, syncope or pre-syncope. HEENT: Pt denies ocular discharge or irritation, otalgia, rhinorrhea, pharyngitis or notable lymphadenopathy. Cardiopulmonary: Pt denies chest pain, SOB, heart palpitations, dyspnea on exertion. Abdominal/GI: Pt denies abdominal pain, n/v/d. : Pt denies dysuria, burning w/ urination, frequency/urgency. Denies new onset urinary or bowel incontinence. MSK: Pt denies myalgia, loss of strength or function in extremities. Neuro: Pt denies new onset weakness, paresthesias. - Related Data Previous Rx's Medication Instructions Recorded Dicyclomine [Bentyl] 10 mg PO QID 7 Days #21 capsule 12/20/18 Ondansetron Odt [Zofran Odt] 4 mg PO Q8HR PRN 5 Days #15 tab 04/24/19 Omeprazole 20 mg PO Q24HR 14 Days #14 05/08/19 tablet. Allergies Allergy/AdvReac Type Severity Reaction Status Date / Time No Known Allergies Allergy Verified 04/24/19 17:49 Review of Systems ROS Statement: Those systems with pertinent positive or pertinent negative responses have been documented in the HPI. ROS Other: All systems not noted in ROS Statement are negative. Past Medical History Past Medical History: Asthma, Skin Disorder Additional Past Medical History / Comment(s): detached retina at . Psoriasis, OVARIAN CYST, "heart problems". KIDNEY STONES,. PAST HX GI BLEEDING AND BRUISING History of Any Multi-Drug Resistant Organisms: MRSA Date of last positivie culture/infection: 08/24/2012 MDRO Source:: right hip Past Surgical History: Section, Hernia Repair Additional Past Surgical History / Comment(s): RIGHT OVARIAN CYST REMOVED Past Anesthesia/Blood Transfusion Reactions: No Reported Reaction Past Psychological History: Anxiety, Bipolar, Depression Smoking Status: Current some day smoker Past Alcohol Use History: Occasional Past Drug Use History: Marijuana - Past Family History Mother Family Medical History: Cancer General Exam - General Exam Comments Initial Comments: Constitutional: NAD, AOX3, Pt has pleasant affect. HEENT: NC/AT, trachea midline, neck supple, no lymphadenopathy. Posterior pharynx non erythematous, without exudates. External ears appear normal, without discharge. Mucous membranes moist. Eyes PERRLA, EOM intact. There is no scleral icterus. No pallor noted. Cardiopulmonary: RRR, no murmurs, rubs or gallops, no JVD noted. Lungs CTAB in anterior and posterior esposito. No peripheral edema. Abdominal exam: Abdomen soft and non-distended. Epigastric mild tenderness to palpation epigastric region. No other areas of abdominal tenderness.. Bowel sounds active in LLQ. No hepatosplenomegaly. No ecchymosis Neuro: CN II-XII grossly intact. No nuchal rigidity. No raccon eyes, no mi sign, no hemotympanum. No cervical spinal tenderness. MSK: No posterior calf tenderness bilaterally, homans sign negative bilaterally. Posterior tibialis and radial pulse +2 bilaterally. Sensation intact in upper and lower extremities. Full active ROM in upper and lower extremities, 5/5 stregnth. Limitations: no limitations Course Vital Signs 05/08/19 05/08/19 05/08/19 12:19 12:48 14:21 Temperature 98.8 F 99.1 F 98.9 F Pulse Rate 85 84 82 Respiratory 19 19 18 Rate Blood Pressure 115/75 114/70 110/65 O2 Sat by Pulse 96 98 100 Oximetry 05/08/19 05/08/19 15:00 16:00 Temperature 98.6 F Pulse Rate 67 79 Respiratory 17 19 Rate Blood Pressure 110/65 110/55 O2 Sat by Pulse 98 98 Oximetry Medical Decision Making - Medical Decision Making 28 year old female patient presents to ED 50 complaint epigastric abdominal pain nausea vomiting diarrhea. Patient was began approximately 2 AM woke her up from sleep. Denies a chance being . Patient has had multiple evaluations for abdominal pain including CT abdomen and pelvis performed 12/20 and 04/24 pf 2018 those displayed ovarian cyst, gastroenteritis. Reports that the pain is sharp in nature. Denies any other complaints at this time. Patient also has a stable, afebrile. Physical exam displayed mild epigastric tenderness. Investigations are noncompressive. HCG negative. KUB and ultrasound did not display any acute process. Patient feeling much improved. Abdominal tenderness is significantly decreased, patient is experiencing viral gastroenteritis-like syndrome. Patient will discharged with omeprazole for gastritis, while ou tpatient follow-up with GI. Return to ER if condition worsens. Case discussed with Dr. Mcallister. - Lab Data Result diagrams: 05/08/19 13:13 05/08/19 13:13 Lab Results 05/08/19 05/08/19 05/08/19 Range/Units 13:13 13:13 13:13 WBC 5.6 (3.8-10.6) k/uL RBC 4.45 (3.80-5.40) m/uL Hgb 13.3 (11.4-16.0) gm/dL Hct 39.3 (34.0-46.0) % MCV 88.2 (80.0-100.0) fL MCH 30.0 (25.0-35.0) pg MCHC 34.0 (31.0-37.0) g/dL RDW 12.7 (11.5-15.5) % Plt Count 192 (150-450) k/uL Neutrophils % 77 % Lymphocytes % 16 % Monocytes % 4 % Eosinophils % 1 % Basophils % 0 % Neutrophils # 4.3 (1.3-7.7) k/uL Lymphocytes # 0.9 L (1.0-4.8) k/uL Monocytes # 0.2 (0-1.0) k/uL Eosinophils # 0.1 (0-0.7) k/uL Basophils # 0.0 (0-0.2) k/uL Sodium 139 (137-145) mmol/L Potassium 4.0 (3.5-5.1) mmol/L Chloride 107 (98-107) mmol/L Carbon Dioxide 23 (22-30) mmol/L Anion Gap 9 mmol/L BUN 15 (7-17) mg/dL Creatinine 0.56 (0.52-1.04) mg/dL Est GFR (CKD-EPI)AfAm >90 (>60 ml/min/1.73 sqM) Est GFR (CKD-EPI)NonAf >90 (>60 ml/min/1.73 sqM) Glucose 92 (74-99) mg/dL Plasma Lactic Acid Shad (0.7-2.0) mmol/L Calcium 9.2 (8.4-10.2) mg/dL Total Bilirubin 0.7 (0.2-1.3) mg/dL AST 18 (14-36) U/L ALT 13 (4-34) U/L Alkaline Phosphatase 69 (38-126) U/L Total Protein 6.9 (6.3-8.2) g/dL Albumin 4.2 (3.5-5.0) g/dL Lipase 47 (23-300) U/L Urine Color Urine Appearance (Clear) Urine pH (5.0-8.0) Ur Specific [place] (1.001-1.035) Urine Protein (Negative) Urine Glucose (UA) (Negative) Urine Ketones (Negative) Urine Blood (Negative) Urine Nitrite (Negative) Urine Bilirubin (Negative) Urine Urobilinogen (<2.0) mg/dL Ur Leukocyte Esterase (Negative) Urine RBC (0-5) /hpf Urine WBC (0-5) /hpf Ur Squamous Epith Cells (0-4) /hpf Urine Mucus (None) /hpf Urine HCG, Qual Not Detected (Not Detectd) 05/08/19 05/08/19 Range/Units 13:13 13:13 WBC (3.8-10.6) k/uL RBC (3.80-5.40) m/uL Hgb (11.4-16.0) gm/dL Hct (34.0-46.0) % MCV (80.0-100.0) fL MCH (25.0-35.0) pg MCHC (31.0-37.0) g/dL RDW (11.5-15.5) % Plt Count (150-450) k/uL Neutrophils % % Lymphocytes % % Monocytes % % Eosinophils % % Basophils % % Neutrophils # (1.3-7.7) k/uL Lymphocytes # (1.0-4.8) k/uL Monocytes # (0-1.0) k/uL Eosinophils # (0-0.7) k/uL Basophils # (0-0.2) k/uL Sodium (137-145) mmol/L Potassium (3.5-5.1) mmol/L Chloride (98-107) mmol/L Carbon Dioxide (22-30) mmol/L Anion Gap mmol/L BUN (7-17) mg/dL Creatinine (0.52-1.04) mg/dL Est GFR (CKD-EPI)AfAm (>60 ml/min/1.73 sqM) Est GFR (CKD-EPI)NonAf (>60 ml/min/1.73 sqM) Glucose (74-99) mg/dL Plasma Lactic Acid Shad 0.7 (0.7-2.0) mmol/L Calcium (8.4-10.2) mg/dL Total Bilirubin (0.2-1.3) mg/dL AST (14-36) U/L ALT (4-34) U/L Alkaline Phosphatase (38-126) U/L Total Protein (6.3-8.2) g/dL Albumin (3.5-5.0) g/dL Lipase (23-300) U/L Urine Color Yellow Urine Appearance Clear (Clear) Urine pH 5.0 (5.0-8.0) Ur Specific [place] 1.016 (1.001-1.035) Urine Protein Negative (Negative) Urine Glucose (UA) Negative (Negative) Urine Ketones Negative (Negative) Urine Blood Trace H (Negative) Urine Nitrite Negative (Negative) Urine Bilirubin Negative (Negative) Urine Urobilinogen <2.0 (<2.0) mg/dL Ur Leukocyte Esterase Negative (Negative) Urine RBC <1 (0-5) /hpf Urine WBC 1 (0-5) /hpf Ur Squamous Epith Cells 1 (0-4) /hpf Urine Mucus Rare H (None) /hpf Urine HCG, Qual (Not Detectd) - EKG Data -: EKG Interpreted by Me (and Dr. Mcallister) EKG Comments: Ventricular rate 77, when necessary for 160, QRS 96, QT/QTC 386 is 436. Normal sensation, normal EKG, no concern for acute ischemia. Disposition Clinical Impression: Abdominal pain, Gastritis Disposition: HOME SELF-CARE Condition: Stable Instructions (If sedation given, give patient instructions): Abdominal Pain (ED), Gastritis (ED), Gastroenteritis (ED) Additional Instructions: Follow-up with primary care provider and GI consult tomorrow. Take omeprazole as prescribed. Return immediately to ER if condition worsens in any way. Prescriptions: Omeprazole 20 mg PO Q24HR 14 Days #14 tablet.dr Is patient prescribed a controlled substance at d/c from ED?: No Referrals: Amada Roblero MD [Primary Care Provider] - 1-2 days
[2019-05-08 16:50] VITALS: BP 113/67; PULSE 90
[2019-05-08 16:51] VITALS: RESP 17; TEMP 98.7
== END 2019-05-08 16:51 | disposition home or self-care (01) ==
LOC: EC 11:58
DX: K29.70 Gastritis, unspecified, without bleeding (principal); F17.200 Nicotine dependence, unspecified, uncomplicated; Z86.14 Personal history of Methicillin resistant Staphylococcus aureus infection; Z87.42 Personal history of other diseases of the female genital tract; Z98.890 Other specified postprocedural states
CPT/HCPCS: 36415; 93005; 80053; 83605; 83690; 85025; 81001; 81025; 74018; 76705; 99285; 96374; 96375; 96361 ×2; J2270; J2405

== ENCOUNTER 2019-07-04 14:32 | Emergency (ER) | payer MEDICARE, OTHER ==
[2019-07-04 14:35] VITALS: TEMP 98
[2019-07-04] MEDS ORDERED: AZITHROMYCIN 500 MG TAB PO STA (15:08)
[2019-07-04 16:13] LABS: Appearance,Urine Cloudy (Clear); Bilirubin,Urine Negative (Negative); Blood,Urine Negative (Negative); Color,Urine Light Yellow; Glucose,Urine (UA) Negative (Negative); Ketones,Urine Negative (Negative); Leukocyte Esterase,Urine Negative (Negative); Nitrite,Urine Negative (Negative); PH, Urine 7.5 (5.0-8.0); Protein,Urine Negative (Negative); RBC,Urine 1 /hpf (0-5); Specific Gravity,Urine 1.026 (1.001-1.035); Squamous Epithelial Cell,Urine 1 /hpf (0-4); Urobilinogen,Urine <2.0 mg/dL (<2.0); WBC,Urine 3 /hpf (0-5)
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
[2019-07-04 16:43] VITALS: BP 129/78; PULSE 71; RESP 16
[2019-07-06 15:37] LABS: C. trachomatis,PCR Negative (Neg,Equiv); Chlamydia trachomatis Source Vagina; N. gonorrhoeae,PCR Negative (Neg,Equiv); Neisseria Source Vagina
== END 2019-07-04 16:42 | disposition home or self-care (01) ==
LOC: EC 14:32
DX: Z11.3 Encounter for screening for infections with a predominantly sexual mode of transmission (principal); F17.200 Nicotine dependence, unspecified, uncomplicated; Z86.14 Personal history of Methicillin resistant Staphylococcus aureus infection
CPT/HCPCS: 81001; 81025; 87070; 87491; 87591; 87808; 99283

== ENCOUNTER 2019-07-20 21:25 | Emergency (ER) | payer MEDICARE, OTHER ==
[2019-07-20 21:30] VITALS: BP 132/86; PULSE 77; RESP 18; TEMP 98.3
[2019-07-20] MEDS ORDERED: IBUPROFEN 600 MG TAB PO STA (21:44)
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
--- NOTE | 2019-07-20 22:14 | XR ---
EXAMINATION TYPE: XR shoulder complete LT DATE OF EXAM: 07/20/2019 COMPARISON: NONE HISTORY: Fall. Pain. TECHNIQUE: 3 views FINDINGS: I see no fracture nor dislocation. Joint spaces are normal. There are no pathologic calcifi cations. IMPRESSION: Negative left shoulder exam.
--- NOTE | 2019-07-20 22:15 | XR ---
EXAMINATION TYPE: XR hand complete LT DATE OF EXAM: 07/20/2019 COMPARISON: NONE HISTORY: Pain. TECHNIQUE: 3 views FINDINGS: Metacarpals are intact. Carpal bones are intact. Joint spaces are normal. There is possible nondisplaced transverse fracture across the base of the distal phalanx of the little finger. IMPRESSION: Possible nondisplaced fracture of the distal phalanx of the little finger.
--- NOTE | 2019-07-20 22:17 | XR ---
EXAMINATION TYPE: XR wrist complete LT DATE OF EXAM: 07/20/2019 COMPARISON: NONE HISTORY: Pain. TECHNIQUE: 4 views FINDINGS: Carpal bones are intact. Joint spaces are normal. Scaphoid appears intact. I see no fractur e. IMPRESSION: Negative left wrist exam.
== END 2019-07-20 23:00 | disposition home or self-care (01) ==
LOC: EC 21:25
DX: S62.631A Displaced fracture of distal phalanx of left index finger, initial encounter for closed fracture (principal); S40.022A Contusion of left upper arm, initial encounter; F17.200 Nicotine dependence, unspecified, uncomplicated; Z86.14 Personal history of Methicillin resistant Staphylococcus aureus infection; W17.89XA Other fall from one level to another, initial encounter
CPT/HCPCS: 99284

== ENCOUNTER 2020-01-02 22:19 | Emergency (ER) | payer MEDICARE, OTHER ==
[2020-01-02] MEDS ORDERED: ACETAMINOPHEN TAB 500 MG TAB PO STA (22:54)
[2020-01-02] MEDS ORDERED: IBUPROFEN 600 MG TAB PO STA (22:54)
--- NOTE | 2020-01-02 23:04 | ED ---
General Adult HPI - General Chief complaint: Extremity Injury, Upper Stated complaint: L Hand Injury Time Seen by Provider: 01/02/20 22:46 Source: patient Mode of arrival: ambulatory Limitations: no limitations - History of Present Illness Initial comments: 29-year-old female patient presents to emergency department [facility] with complaints of left thumb pain after crushing her hand between a mattress and bedframe approximately 2-1/2 hours prior to arrival. Reports pain with movement and palpation. No obvious deformity, contusion, or swelling. Patient denies any other injuries. Patient denies any recent rash, fever, chills, cough, shortness of breath, chest pain, abdominal pain, nausea, vomiting, diarrhea, constipation, back pain, numbness, tingling, dizziness, weakness, hematuria, dysuria, urinary urgency, urinary frequency, headache, visual changes, or any other complaints. - Related Data Previous Rx's Medication Instructions Recorded Dicyclomine [Bentyl] 10 mg PO QID 7 Days #21 capsule 12/20/18 Ondansetron Odt [Zofran Odt] 4 mg PO Q8HR PRN 5 Days #15 tab 04/24/19 Omeprazole 20 mg PO Q24HR 14 Days #14 05/08/19 tablet. Allergies Allergy/AdvReac Type Severity Reaction Status Date / Time No Known Allergies Allergy Verified 01/02/20 22:37 Review of Systems ROS Statement: Those systems with pertinent positive or pertinent negative responses have been documented in the HPI. ROS Other: All systems not noted in ROS Statement are negative. Past Medical History Past Medical History: Asthma, Skin Disorder Additional Past Medical History / Comment(s): detached retina at . Psoriasis, OVARIAN CYST, "heart problems". KIDNEY STONES,. PAST HX GI BLEEDING AND BRUISING History of Any Multi-Drug Resistant Organisms: MRSA Date of last positivie culture/infection: 08/24/2012 MDRO Source:: right hip Past Surgical History: Section, Hernia Repair Additional Past Surgical History / Comment(s): RIGHT OVARIAN CYST REMOVED Past Anesthesia/Blood Transfusion Reactions: No Reported Reaction Past Psychological History: Anxiety, Bipolar, Depression Smoking Status: Current every day smoker Past Alcohol Use History: Occasional Past Drug Use History: Marijuana - Past Family History Mother Family Medical History: Cancer General Exam Limitations: no limitations General appearance: alert, in no apparent distress, other (this is a well- developed well-nourished adult female in no acute distress. Vital signs upon arrival temperature 98.5 Fahrenheit, pulse 65, respirations 16, blood pressure 110/75, pulse ox 100% on room air.) Head exam: Present: atraumatic, normocephalic, normal inspection Eye exam: Present: normal appearance. Absent: scleral icterus, conjunctival injection, periorbital swelling Respiratory exam: Present: normal lung sounds bilaterally. Absent: respiratory distress, wheezes, rales, rhonchi, stridor Cardiovascular Exam: Present: regular rate, normal rhythm, normal heart sounds. Absent: systolic murmur, diastolic murmur, rubs, gallop, clicks GI/Abdominal exam: Present: soft, normal bowel sounds. Absent: distended, tenderness, guarding, rebound, rigid Left Hand Wrist exam: Present: normal inspection, other (small abrasion noted at the proximal portion of the thumbnail. Cap refill less than 3 seconds. No swelling, no deformity, no contusion.) Neuro motor exam: Present: fingers 2-5 abduction intact, other (declines to p erform range of motion of the thumb due to pain) Vascular: Present: normal capillary refill, radial pulse Psychiatric exam: Present: normal mood, flat affect Skin exam: Present: warm, dry, intact, normal color. Absent: rash Course Vital Signs 01/02/20 01/02/20 22:34 23:53 Temperature 98.5 F 98.4 F Pulse Rate 65 57 L Respiratory 16 18 Rate Blood Pressure 110/75 116/63 O2 Sat by Pulse 100 100 Oximetry Medical Decision Making - Medical Decision Making 29-year-old female patient presented to the emergency department today for evaluation of left hand injury. Physical examination did reveal mild soft tissue swelling. Neurovascular status was intact. X-rays were obtained and were negative for any evidence for bony abnormalities. I did discuss findings and results with the patient. Did discuss contusion as a cause for her symptoms. She is educated regarding rest, ice, elevation of the hand. She is instructed take Tylenol Motrin for pain control. She is instructed to follow-up with her primary care physician for recheck in 1-2 days. Instructed to have repeat x-rays performed in 7-10 days if pain symptoms persist. Return parameters were discussed in detail. She verbalizes understanding and agrees with this plan. - Radiology Data Radiology results: report reviewed, image reviewed 3 views of the left hand are obtained. Report was reviewed in its entirety. Impression by Dr. Alonzo shows negative left hand exam. It is apparent complete healing of the fracture of the distal phalanxes of the little finger left hand compared to old exam. Disposition Clinical Impression: Contusion of left hand Disposition: HOME SELF-CARE Condition: Good Instructions (If sedation given, give patient instructions): Contusion in Adults (ED) Additional Instructions: Rest, ice, elevate the hand. Take Tylenol and Motrin for pain control. Follow up with your primary care physician for recheck in 1-2 days. Have repeat x-rays performed in 7-10 days if pain symptoms persist. Return to the emergency department immediately for any new, worsening, or concerning symptoms. Is patient prescribed a controlled substance at d/c from ED?: No Referrals: Amada Roblero MD [Primary Care Provider] - 1-2 days Time of Disposition: 23:44
--- NOTE | 2020-01-02 23:33 | XR ---
EXAMINATION TYPE: XR hand complete LT DATE OF EXAM: 01/02/2020 COMPARISON: 07/20/2019 HISTORY: Fall. Wrist pain. TECHNIQUE: 3 views FINDINGS: Metacarpals are intact. I see no fracture nor dislocation. The carpal bones are intact. Fin gers appear intact. IMPRESSION: Negative left hand exam. There is apparent complete healing of the fracture of the distal phalanx of the little finger left hand compared to old exam.
[2020-01-02 23:55] VITALS: BP 116/63; PULSE 57; RESP 18; TEMP 98.4
== END 2020-01-02 23:55 | disposition home or self-care (01) ==
LOC: EC 22:19
DX: S60.222A Contusion of left hand, initial encounter (principal); F17.200 Nicotine dependence, unspecified, uncomplicated; Z86.14 Personal history of Methicillin resistant Staphylococcus aureus infection; W23.0XXA Caught, crushed, jammed, or pinched between moving objects, initial encounter; Y93.89 Activity, other specified
CPT/HCPCS: 99283

== ENCOUNTER 2020-03-18 18:15 | Emergency (ER) | payer MEDICARE, OTHER ==
[2020-03-18 18:20] VITALS: BP 110/67; PULSE 101; RESP 18; TEMP 97.7
--- NOTE | 2020-03-18 19:40 | ED ---
General Adult HPI - General Chief complaint: Skin/Abscess/Foreign Body Stated complaint: C section tare Time Seen by Provider: 03/18/20 19:29 Source: patient, RN notes reviewed, old records reviewed Mode of arrival: ambulatory Limitations: no limitations - History of Present Illness Initial comments: 29-year-old female presenting for irritation in her previous scar. Patient reports that she had been walking more than usual for exercise and noticed some redness, irritation and drainage from her previous incision. No fever. No abdominal pain. It has been several years since her C- section. - Related Data Previous Rx's Medication Instructions Recorded Dicyclomine [Bentyl] 10 mg PO QID 7 Days #21 capsule 12/20/18 Ondansetron Odt [Zofran Odt] 4 mg PO Q8HR PRN 5 Days #15 tab 04/24/19 Omeprazole 20 mg PO Q24HR 14 Days #14 05/08/19 tablet. Cephalexin [Keflex] 500 mg PO Q6HR 10 Days #40 cap 03/18/20 Allergies Allergy/AdvReac Type Severity Reaction Status Date / Time No Known Allergies Allergy Verified 03/18/20 18:20 Review of Systems ROS Statement: Those systems with pertinent positive or pertinent negative responses have been documented in the HPI. ROS Other: All systems not noted in ROS Statement are negative. Past Medical History Past Medical History: Asthma, Skin Disorder Additional Past Medical History / Comment(s): detached retina at . Psoriasis, OVARIAN CYST, "heart problems". KIDNEY STONES,. PAST HX GI BLEEDING AND BRUISING History of Any Multi-Drug Resistant Organisms: MRSA Date of last positivie culture/infection: 08/24/2012 MDRO Source:: right hip Past Surgical History: Section, Hernia Repair Additional Past Surgical History / Comment(s): RIGHT OVARIAN CYST REMOVED Past Anesthesia/Blood Transfusion Reactions: No Reported Reaction Past Psychological History: Anxiety, Bipolar, Depression Smoking Status: Current every day smoker Past Alcohol Use History: Occasional Past Drug Use History: Marijuana - Past Family History Mother Family Medical History: Cancer General Exam Limitations: no limitations General appearance: alert, in no apparent distress Head exam: Present: atraumatic, normocephalic Eye exam: Present: normal appearance, PERRL ENT exam: Present: normal exam Neck exam: Present: normal inspection. Absent: tenderness, meningismus Respiratory exam: Present: normal lung sounds bilaterally. Absent: respiratory distress, wheezes Cardiovascular Exam: Present: regular rate, normal rhythm GI/Abdominal exam: Present: soft, other (Previous scar, well-healed, no induration, no fluctuance, no erythema, no drainage.). Absent: distended, tenderness, guarding, rebound, rigid Extremities exam: Present: normal inspection, normal capillary refill Neurological exam: Present: alert, oriented X3 Psychiatric exam: Present: normal affect, normal mood Course Vital Signs 03/18/20 03/18/20 18:18 19:50 Temperature 97.7 F 97.7 F Pulse Rate 101 H 101 H Respiratory 18 18 Rate Blood Pressure 110/67 110/67 O2 Sat by Pulse 99 99 Oximetry Medical Decision Making - Medical Decision Making 29-year-old female presenting with concern for infected scar which is several years old. The incision is well-healed, no signs of current infection. Patient did have a picture showing some irritation to the incision. I did prescribe antibiotics would which the patient can initiate if she develops some worsening erythema. At this time this is likely just dermatitis, irritation. She will follow-up with her surgeon. Disposition Clinical Impression: Dermatitis Disposition: HOME SELF-CARE Condition: Good Instructions (If sedation given, give patient instructions): Dermatitis (ED) Prescriptions: Cephalexin [Keflex] 500 mg PO Q6HR 10 Days #40 cap Is patient prescribed a controlled substance at d/c from ED?: No Referrals: Amada Roblero MD [Primary Care Provider] - 1-2 days Time of Disposition: 19:40
== END 2020-03-18 19:51 | disposition home or self-care (01) ==
LOC: EC 18:15
DX: L30.9 Dermatitis, unspecified (principal); F17.200 Nicotine dependence, unspecified, uncomplicated
CPT/HCPCS: 99283

== ENCOUNTER 2020-04-18 14:11 | Emergency (ER) | payer MEDICARE, OTHER ==
[2020-04-18 14:24] VITALS: BP 118/68; PULSE 71; RESP 16; TEMP 98
--- NOTE | 2020-04-18 15:02 | XR ---
EXAMINATION TYPE: XR chest 2V DATE OF EXAM: 04/18/2020 COMPARISON: 06/13/2018. HISTORY: Cough. TECHNIQUE: Frontal and lateral views of the chest are obtained. FINDINGS: There is no focal air space opacity, pleural effusion, or pneumothorax seen. The cardiac silhouette size is within normal limits. The osseous structures are intact. IMPRESSION: No acute cardiopulmonary process.
--- NOTE | 2020-04-18 15:13 | ED ---
ENT HPI - General Chief complaint: ENT Stated complaint: Cough/SOB/Chest Congestion Time Seen by Provider: 04/18/20 14:24 Source: patient Mode of arrival: ambulatory Limitations: no limitations - History of Present Illness Initial comments: Patient is a 29-year-old female presenting to the emergency Department with complaints of sinus congestion, mild cough, shortness of breath that started 2 days ago. Patient states her children also has similar symptoms. Patient was concerned with cold it. Patient denies history of asthma, she is in every day s moker. She denies any fever, chills, no abdominal pain, no nausea or vomiting, she has had a few episodes of diarrhea. She denies any chest pain. Patient states her symptoms started about 2 days ago. Patient has no other pertinent past history, she did not take any medicines today. She has no further complaints. Upon arrival to the ER, her vitals are stable. - Related Data Home Medications Medication Instructions Recorded Confirmed No Known Home Medications 04/18/20 04/18/20 Allergies Allergy/AdvReac Type Severity Reaction Status Date / Time No Known Allergies Allergy Verified 04/18/20 15:14 Review of Systems ROS Statement: Those systems with pertinent positive or pertinent negative responses have been documented in the HPI. ROS Other: All systems not noted in ROS Statement are negative. Past Medical History Past Medical History: Asthma, Skin Disorder Additional Past Medical History / Comment(s): detached retina at . Psoriasis, OVARIAN CYST, "heart problems". KIDNEY STONES,. PAST HX GI BLEEDING AND BRUISING History of Any Multi-Drug Resistant Organisms: MRSA Date of last positivie culture/infection: 08/24/2012 MDRO Source:: right hip Past Surgical History: Section, Hernia Repair Additional Past Surgical History / Comment(s): RIGHT OVARIAN CYST REMOVED Past Anesthesia/Blood Transfusion Reactions: No Reported Reaction Past Psychological History: Anxiety, Bipolar, Depression Smoking Status: Current every day smoker Past Alcohol Use History: Occasional Past Drug Use History: Marijuana - Past Family History Mother Family Medical History: Cancer General Exam - General Exam Comments Initial Comments: GENERAL: Patient is well-developed and well-nourished. Patient is nontoxic and in no acute distress. HEAD: Atraumatic, normocephalic. EYES: Pupils equal round and reactive to light, extraocular movements intact, sclera anicteric, conjunctiva are normal. Eyelids were unremarkable. ENT: TMs normal, nares patent, oropharynx clear without exudates. Moist mucous membranes. NECK: Normal range of motion, supple without lymphadenopathy or JVD. LUNGS: Unlabored respirations. Breath sounds clear to auscultation bilaterally and equal. No wheezes rales or rhonchi. HEART: Regular rate and rhythm without murmurs, rubs or gallops. ABDOMEN: Soft, nontender, normoactive bowel sounds. No guarding, no rebound. No masses appreciated. : Deferred MUSCULOSKELETAL: Normal extremities with adequate strength and normal range of motion, no pitting or edema. No clubbing or cyanosis. NEUROLOGICAL: Patient is alert and oriented x 3. Motor and sensory are also intact. Cranial nerves II through XII grossly intact. Symmetrical smile. Normal speech, normal gait. PSYCH: Normal mood, normal affect. SKIN: Warm, Dry, normal turgor, no rashes or lesions noted. Limitations: no limitations Course Vital Signs 04/18/20 14:22 Temperature 98.0 F Pulse Rate 71 Respiratory 16 Rate Blood Pressure 118/68 O2 Sat by Pulse 100 Oximetry Medical Decision Making - Medical Decision Making Patient is a 29-year-old female with mild cold-like symptoms with his congestion, mild cough, shortness of breath. She has been afebrile, her vitals are stable here. Her exam is unremarkable. Chest x-ray shows no acute process, patient was tested for Covid, this is pending. Patient is stable for discharge. We discussed with patient that her symptoms are most likely viral nature she can continue with [id number] medications for her symptoms. She can follow-up with her PCP. Return parameters were discussed with the patient she verbalized understanding. Disposition Clinical Impression: Dyspnea, Viral illness Disposition: HOME SELF-CARE Condition: Stable Instructions (If sedation given, give patient instructions): Viral Syndrome (ED) Additional Instructions: Please return to the Emergency Department if symptoms worsen or any other concerns. Covid test is pending. Continue to drink plenty of water, Tylenol Motrin for discomfort. Follow-up with your physician. Is patient prescribed a controlled substance at d/c from ED?: No Referrals: Amada Roblero MD [Primary Care Provider] - 1-2 days
== END 2020-04-18 15:57 | disposition home or self-care (01) ==
LOC: EC 14:11
DX: B34.9 Viral infection, unspecified (principal); F17.200 Nicotine dependence, unspecified, uncomplicated; Z20.828 Contact with and (suspected) exposure to other viral communicable diseases; Z86.14 Personal history of Methicillin resistant Staphylococcus aureus infection
CPT/HCPCS: 71046; 99284; U0003

== ENCOUNTER 2020-10-16 17:31 | Emergency (ER) | payer MEDICARE, OTHER ==
[2020-10-16 17:37] VITALS: BP 103/72; PULSE 62; RESP 18; TEMP 97.6
--- NOTE | 2020-10-16 17:44 | ED ---
General Adult HPI - General Chief complaint: Upper Respiratory Infection Stated complaint: SOB, head congestion Time Seen by Provider: 10/16/20 17:41 Source: patient Mode of arrival: ambulatory Limitations: no limitations - History of Present Illness Initial comments: Patient presents to the ED complaining of having nasal congestion, drainage of brown/green-colored nasal discharge, a cough and dyspnea for the past 2 days or so. Patient states that she is fully vaccinated against Covid (she states that she has received both shots). Patient denies known sick contact. Patient denies fever or chills, headache, sore throat, otalgia, neck pain or stiffness, chest pain, hemoptysis, palpitations, dizziness, abdominal pain, nausea/vomiting/diarrhea, dysuria or urinary symptoms, leg or calf swelling or pain, or any other symptoms or complaints. - Related Data Previous Rx's Medication Instructions Recorded Oxymetazoline 0.05% Nasl [place] 2 spray EA NOSTRIL BID PRN 3 Days 10/16/20 [Afrin 0.05% Nasal [place]] #1 bottle Allergies Allergy/AdvReac Type Severity Reaction Status Date / Time No Known Allergies Allergy Verified 10/16/20 17:37 Review of Systems ROS Statement: Those systems with pertinent positive or pertinent negative responses have been documented in the HPI. ROS Other: All systems not noted in ROS Statement are negative. Past Medical History Past Medical History: Asthma, Skin Disorder Additional Past Medical History / Comment(s): detached retina at . Psoriasis, OVARIAN CYST, "heart problems". KIDNEY STONES,. PAST HX GI BLEEDING AND BRUISING History of Any Multi-Drug Resistant Organisms: MRSA Date of last positivie culture/infection: 08/24/2012 MDRO Source:: right hip Past Surgical History: Section, Hernia Repair Additional Past Surgical History / Comment(s): RIGHT OVARIAN CYST REMOVED Past Anesthesia/Blood Transfusion Reactions: No Reported Reaction Past Psychological History: Anxiety, Bipolar, Depression Smoking Status: Current every day smoker Past Alcohol Use History: Occasional Past Drug Use History: Marijuana - Past Family History Mother Family Medical History: Cancer General Exam Limitations: no limitations General appearance: alert, in no apparent distress Head exam: Present: atraumatic, normocephalic Eye exam: Present: normal appearance, EOMI ENT exam: Present: mucous membranes moist, TM's normal bilaterally, other (Bilateral nasal congestion) Neck exam: Present: other (Trachea is in midline) Respiratory exam: Present: normal lung sounds bilaterally. Absent: respiratory distress, wheezes, rales, rhonchi, stridor Cardiovascular Exam: Present: regular rate, normal rhythm, normal heart sounds, other (Normal radial pulses bilaterally) GI/Abdominal exam: Present: soft. Absent: distended, tenderness, guarding Extremities exam: Present: other (Negative Homans sign bilaterally). Absent: tenderness, pedal edema, calf tenderness Neurological exam: Present: alert, oriented X3. Absent: motor sensory deficit Psychiatric exam: Present: normal affect, normal mood Skin exam: Present: warm, dry, intact, normal color Course Vital Signs 10/16/20 17:34 Temperature 97.6 F Pulse Rate 62 Respiratory 18 Rate Blood Pressure 103/72 O2 Sat by Pulse 99 Oximetry Medical Decision Making - Medical Decision Making Patient is alert and breathing comfortably in the ED with a normal room air oxygen saturation. Patient's chest x-ray is unremarkable. I suspect that the patient's symptoms are likely secondary to a viral URI. Will discharge the patient home with a prescription for nasal decongestants. Patient was counseled about upper respiratory infections, and she was clearly explained return and follow-up instructions. Patient was instructed to follow up closely with her primary care provider. Patient feels comfortable with this plan. - Radiology Data Radiology results: image reviewed (Chest x-ray: No acute cardiopulmonary disease) Disposition Clinical Impression: Upper respiratory infection Disposition: HOME SELF-CARE Condition: Stable Instructions (If sedation given, give patient instructions): Upper Respiratory Infection (ED) Additional Instructions: Return to the ER immediately should you develop increased shortness of breath, a high fever, chest pain, feeling dizzy or faint, or new or worsening symptoms. Follow up closely with your primary care provider. Prescriptions: Oxymetazoline 0.05% Nasl [place] [Afrin 0.05% Nasal [place]] 2 spray EA NOSTRIL BID PRN 3 Days #1 bottle PRN Reason: Nasal Congestion Is patient prescribed a controlled substance at d/c from ED?: No Referrals: Amada Roblero MD [Primary Care Provider] - 1-2 days Time of Disposition: 18:43
--- NOTE | 2020-10-16 18:39 | XR ---
EXAMINATION TYPE: XR chest 2V DATE OF EXAM: 10/16/2020 COMPARISON: 04/18/2020 HISTORY: Cough TECHNIQUE: 2 views FINDINGS: Heart and mediastinum are normal. Lungs are clear. Diaphragm is normal. Bony thorax is inta ct. IMPRESSION: Normal chest. No change.
== END 2020-10-16 18:58 | disposition home or self-care (01) ==
LOC: EC 17:31
DX: J06.9 Acute upper respiratory infection, unspecified (principal); J45.909 Unspecified asthma, uncomplicated; F41.9 Anxiety disorder, unspecified; F31.9 Bipolar disorder, unspecified; F17.200 Nicotine dependence, unspecified, uncomplicated; F12.90 Cannabis use, unspecified, uncomplicated
CPT/HCPCS: 71046; 99284

== ENCOUNTER 2020-11-08 19:04 | Emergency (ER) | payer MEDICARE, OTHER ==
[2020-11-08 19:11] VITALS: TEMP 98.4
--- NOTE | 2020-11-08 19:47 | ED ---
Lower Extremity Injury HPI - General Chief Complaint: Extremity Injury, Lower Stated Complaint: Foot injury Time Seen by Provider: 11/08/20 19:13 Source: patient, RN notes reviewed Mode of arrival: ambulatory Limitations: no limitations - History of Present Illness Initial Comments: This a 30-year-old female presents emergency Department chief complaint of left foot pain. Patient states that started hurting last night. She did state that she was out camping, doing a lot of walking, hiking and swimming she is unsure if she may have injured it states that it hurts in the arch of her foot over the heel. She does admit that she had prior fractures of her left foot. No paresthesias no pain proximal leg or any other pains. - Related Data Previous Rx's Medication Instructions Recorded Oxymetazoline 0.05% Nasl [place] 2 spray EA NOSTRIL BID PRN 3 Days 10/16/20 [Afrin 0.05% Nasal [place]] #1 bottle predniSONE 50 mg PO DAILY #5 tab 11/08/20 Allergies Allergy/AdvReac Type Severity Reaction Status Date / Time No Known Allergies Allergy Verified 11/08/20 19:11 Review of Systems ROS Statement: Those systems with pertinent positive or pertinent negative responses have been documented in the HPI. ROS Other: All systems not noted in ROS Statement are negative. Past Medical History Past Medical History: Asthma, Skin Disorder Additional Past Medical History / Comment(s): detached retina at . Psoriasis, OVARIAN CYST, "heart problems". KIDNEY STONES,. PAST HX GI BLEEDING AND BRUISING History of Any Multi-Drug Resistant Organisms: MRSA Date of last positivie culture/infection: 08/24/2012 MDRO Source:: right hip Past Surgical History: Section, Hernia Repair Additional Past Surgical History / Comment(s): RIGHT OVARIAN CYST REMOVED Past Anesthesia/Blood Transfusion Reactions: No Reported Reaction Past Psychological History: Anxiety, Bipolar, Depression Smoking Status: Current every day smoker Past Alcohol Use History: Occasional Past Drug Use History: Marijuana - Past Family History Mother Family Medical History: Cancer General Exam Limitations: no limitations General appearance: alert, in no apparent distress Head exam: Present: atraumatic, normocephalic, normal inspection Respiratory exam: Present: normal lung sounds bilaterally. Absent: respiratory distress, wheezes, rales, rhonchi, stridor Cardiovascular Exam: Present: regular rate, normal rhythm, normal heart sounds. Absent: systolic murmur, diastolic murmur, rubs, gallop, clicks Extremities exam: Present: other (Left foot there is tenderness across the heel, arch of the foot, no swelling no ecchymosis no erythema pulses are palpable equal bilaterally no malleoli tenderness no distal foot tenderness) Course Vital Signs 11/08/20 19:07 Temperature 98.4 F Pulse Rate 97 Respiratory 18 Rate Blood Pressure 124/76 O2 Sat by Pulse 97 Oximetry Medical Decision Making - Medical Decision Making This a 30-year-old female presented for left foot pain. X-rays are negative for acute fractures. Symptoms more consistent with plantar fasciitis. Patient provided instructions for this patient. Return parameters were discussed. Disposition Clinical Impression: Plantar fasciitis of left foot Disposition: HOME SELF-CARE Condition: Stable Instructions (If sedation given, give patient instructions): Plantar Fasciitis (ED) Additional Instructions: Please return to the Emergency Department if symptoms worsen or any other concerns. Prescriptions: predniSONE 50 mg PO DAILY #5 tab Is patient prescribed a controlled substance at d/c from ED?: No Referrals: Amada Roblero MD [Primary Care Provider] - 1-2 days Eduardo Contreras DPM [Doctor of Osteopathic Medicine] - 1-2 days Time of Disposition: 20:31
--- NOTE | 2020-11-08 20:24 | XR ---
EXAMINATION TYPE: XR foot complete LT DATE OF EXAM: 11/08/2020 COMPARISON: 09/10/2013 HISTORY: Pain TECHNIQUE: 3 views FINDINGS: Metatarsals appear intact. The toes appear intact. I see no fracture nor dislocation. Joint spaces appear normal. IMPRESSION: Negative left foot exam. No change.
[2020-11-08] MEDS ORDERED: IBUPROFEN 600 MG STARTER PACK 4 TAB BTL PO STA (20:30)
[2020-11-08] MEDS ORDERED: ACET/COD 300 MG/30 MG STARTER PACK 6 TAB BTL PO STA (20:45)
[2020-11-08 21:13] VITALS: BP 115/87; PULSE 65; RESP 18
== END 2020-11-08 21:13 | disposition home or self-care (01) ==
LOC: EC 19:04
DX: M72.2 Plantar fascial fibromatosis (principal); J45.909 Unspecified asthma, uncomplicated; F17.200 Nicotine dependence, unspecified, uncomplicated; F32.9 Major depressive disorder, single episode, unspecified; F12.90 Cannabis use, unspecified, uncomplicated; Z87.442 Personal history of urinary calculi
CPT/HCPCS: 99283

== ENCOUNTER 2020-11-26 21:15 | Emergency (ER) | payer MEDICARE, OTHER ==
[2020-11-26 21:30] VITALS: TEMP 98.1
[2020-11-26] MEDS ORDERED: SODIUM CHLORIDE 0.9% 2,000 ML IV STA (22:35)
[2020-11-26] MEDS ORDERED: KETOROLAC 15 MG/ML 1 ML VIAL IVP STA (22:35)
[2020-11-26] MEDS ORDERED: ONDANSETRON 4 MG/2 ML VIAL IVP STA (22:35)
[2020-11-26 23:15] LABS: Basophils % (A) 0 %; Eosinophils % (A) 0 %; HCT 37.2 % (34.0-46.0); HGB 12.3 gm/dL (11.4-16.0); Lymphocytes % (A) 26 %; MCH 29.5 pg (25.0-35.0); MCHC 33.1 g/dL (31.0-37.0); MCV 89.3 fL (80.0-100.0); Mean Platelet Volume 6.9; Monocytes # (A) 0.3 k/uL (0-1.0); Monocytes % (A) 4 %; Neutrophils # (A) 5.1 k/uL (1.3-7.7); Neutrophils % (A) 67 %; Platelet Count 234 k/uL (150-450); RBC 4.17 m/uL (3.80-5.40); RDW 13.7 % (11.5-15.5); WBC 7.6 k/uL (3.8-10.6)
[2020-11-26 23:22] LABS: Appearance,Urine Clear (Clear); Bilirubin,Urine Negative (Negative); Blood,Urine Moderate (Negative); Color,Urine Yellow; Glucose,Urine (UA) Negative (Negative); Ketones,Urine Negative (Negative); Leukocyte Esterase,Urine Negative (Negative); Mucus,Urine Rare /hpf; Nitrite,Urine Negative (Negative); Protein,Urine Negative (Negative); RBC,Urine 1 /hpf (0-5); Specific Gravity,Urine 1.032 (1.001-1.035); Squamous Epithelial Cell,Urine 1 /hpf (0-4); Urobilinogen,Urine <2.0 mg/dL (<2.0); WBC,Urine 1 /hpf (0-5)
[2020-11-26 23:24] LABS: ALT 15 U/L (4-34); AST 20 U/L (14-36); African American GFR (CKD) >90 (>60 ml/min/1.73 sqM); Albumin 3.9 g/dL (3.5-5.0); Alkaline Phosphatase 60 U/L (38-126); Anion Gap 7 mmol/L; Blood Urea Nitrogen 20 mg/dL (7-17); Calcium 9.1 mg/dL (8.4-10.2); Carbon Dioxide 28 mmol/L (22-30); Chloride 107 mmol/L (98-107); Glucose 101 mg/dL (74-99); Lipase 60 U/L (23-300); Non-African American GFR(CKD) >90 (>60 ml/min/1.73 sqM); Potassium 4.4 mmol/L (3.5-5.1); Sodium 142 mmol/L (137-145); Total Bilirubin 0.1 mg/dL (0.2-1.3); Total Protein 6.4 g/dL (6.3-8.2)
--- NOTE | 2020-11-26 23:45 | CT ---
EXAMINATION TYPE: CT abdomen pelvis w con DATE OF EXAM: 11/26/2020 COMPARISON: 04/24/2019 HISTORY: RLQ pain. prior on PACS CT DLP: 1741.5 mGycm Automated exposure control for dose reduction was used. CONTRAST: Performed with IV Contrast, patient injected with 100ml mL of Isovue 300. Lung bases are clear. There is no pleural effusion. Heart size is normal. There is no pericardial eff usion. Liver spleen stomach pancreas gallbladder appear intact. The bile ducts are not dilated. There is no adrenal mass. Kidneys show satisfactory contrast opacification. There is no hydronephrosi s. Ureters are not dilated. There is no retroperitoneal adenopathy. Bladder distends smoothly. There is no inguinal hernia. Uterus is anteverted. There are clips from tubal ligation. I see no evidence o f a pelvic mass. Appendix is not well seen. There is no sign of thickened appendix. There is no mesenteric edema. There is no ascites or free air. There is no sign of a bowel obstructio n. The lumbar vertebra have normal alignment. Posterior elements are intact. There is no compression fracture. Bony pelvis appears intact. IMPRESSION: Appendix is not definitely seen. There is no sign of thickened appendix. No evidence of a bowel obstr uction.. No adverse change compared to old exam.
[2020-11-27 00:02] VITALS: RESP 16
--- NOTE | 2020-11-27 00:17 | US ---
EXAMINATION TYPE: US pelvic complete DATE OF EXAM: 11/27/2020 COMPARISON: NONE CLINICAL HISTORY: rlq pain. RLQ pain, patient has history of right ovarian cyst removal 10yrs ago, , 2 c-sections TECHNIQUE: TA. Transabdominal sonographic images of the pelvis were acquired. PATIENT REFUSED TV APPROACH, NOT PREPPED FOR TRANSABDOMINAL, PATIENT WANTED TEST DONE NOW SO SHE COULD GO HOME. Date of LMP: 11/25/2020 EXAM MEASUREMENTS: Uterus: 8.7 x 5.6 x 6.5 cm Endometrial Stripe: unable to discern Right Ovary: 2.9 x 2.0 x 2.3 cm Left Ovary: 3.1 x 1.9 x 2.0 cm 1. Uterus: Anteverted wnl 2. Endometrium: unable to discern 3. Right Ovary: wnl 4. Left Ovary: wnl Spectral, color and waveform doppler imaging shows good arterial and venous flow within the ovaries ; there is no evidence for ovarian torsion. Difficult to doppler transabdominally due to large habitus and bowel gas 5. Bilateral Adnexa: wnl 6. Posterior cul-de-sac: wnl IMPRESSION: No evidence of ovarian torsion. Normal sized uterus. No free fluid. No adnexal mass.
[2020-11-27] MEDS ORDERED: ONDANSETRON 4 MG ODT STARTER PACK 2 TAB BTL PO STA (00:40)
[2020-11-27] MEDS ORDERED: ACET/COD 300 MG/30 MG STARTER PACK 6 TAB BTL PO STA (00:40)
--- NOTE | 2020-11-27 00:51 | ED ---
General Adult HPI - General Chief complaint: Nausea/Vomiting/Diarrhea Stated complaint: Abd Pain Source: patient Mode of arrival: ambulatory Limitations: physical limitation - History of Present Illness Initial comments: Patient is a 30-year-old female presents emergency room with reported right lower quadrant abdominal pain. She states that the pain started tonight. She has had several episode associated episodes of diarrhea. She denies any sick contacts. Did eat food that was not prepared in the house however states that other people have eaten the same food and he did not get sick. She denies any fevers or chills. Denies changes in her urination to include dysuria, hematuria or difficulty voiding. No vaginal discharge. No concern for sexual transmitted infections or . patient is on her menstrual cycle. No recent travel or antibiotic use. She denies any chest pain or shortness of breath. Does admit to several episodes of vomiting. Unable to hold down any food or water. No other alleviating, precipitating or modifying factors - Related Data Home Medications Medication Instructions Recorded Confirmed Ergocalciferol (Vitamin D2) 1,250 mcg PO BENITEZ 11/26/20 11/26/20 [Drisdol (50,000 Iu)] Multivitamins, Thera [Multivitamin 1 tab PO DAILY 11/26/20 11/26/20 (formulary)] Allergies Allergy/AdvReac Type Severity Reaction Status Date / Time No Known Allergies Allergy Verified 11/26/20 22:03 Review of Systems ROS Statement: Those systems with pertinent positive or pertinent negative responses have been documented in the HPI. ROS Other: All systems not noted in ROS Statement are negative. Past Medical History Past Medical History: Asthma, Skin Disorder Additional Past Medical History / Comment(s): detached retina at . P soriasis, OVARIAN CYST, "heart problems". KIDNEY STONES, History of Any Multi-Drug Resistant Organisms: MRSA Date of last positivie culture/infection: 08/24/2012 MDRO Source:: right hip Past Surgical History: Section, Hernia Repair Additional Past Surgical History / Comment(s): RIGHT OVARIAN CYST REMOVED Past Anesthesia/Blood Transfusion Reactions: No Reported Reaction Past Psychological History: Anxiety, Bipolar, Depression Smoking Status: Current every day smoker Past Alcohol Use History: Occasional Past Drug Use History: Marijuana - Past Family History Mother Family Medical History: Cancer General Exam Limitations: no limitations General appearance: alert, in no apparent distress Head exam: Present: atraumatic, normocephalic, normal inspection Eye exam: Present: normal appearance, PERRL, EOMI. Absent: scleral icterus, conjunctival injection, periorbital swelling ENT exam: Present: normal exam, mucous membranes moist Neck exam: Present: normal inspection. Absent: tenderness, meningismus, lymphadenopathy Respiratory exam: Present: normal lung sounds bilaterally. Absent: respiratory distress, wheezes, rales, rhonchi, stridor Cardiovascular Exam: Present: regular rate, normal rhythm, normal heart sounds. Absent: systolic murmur, diastolic murmur, rubs, gallop, clicks GI/Abdominal exam: Present: soft, tenderness (RLQ), normal bowel sounds. Absent: distended, guarding, rebound, rigid Extremities exam: Present: normal inspection, full ROM, normal capillary refill. Absent: tenderness, pedal edema, joint swelling, calf tenderness Back exam: Present: normal inspection Neurological exam: Present: alert, oriented X3, CN II-XII intact Psychiatric exam: Present: normal affect, normal mood Skin exam: Present: warm, dry, intact, normal color. Absent: rash Course Vital Signs 11/26/20 11/27/20 11/27/20 21:25 00:00 00:55 Temperature 98.1 F Pulse Rate 86 82 78 Respiratory 18 16 16 Rate Blood Pressure 110/76 111/66 105/70 O2 Sat by Pulse 100 98 97 Oximetry Medical Decision Making - Medical Decision Making Upon arrival patient's placed into room 11. History and physical exam is performed. IV is established patient is given 2 L of normal saline. She is also given 15 mg of Toradol and 4 mg of Zofran. Laboratory studies were conducted. Patient went for a CT which demonstrates no signs of acute appendicitis. Did supplement this with an ultrasound which demonstrates no signs of ovarian torsion. Results are discussed patient. She is relieved. I did give her a Zofran starter pack as well as a Tylenol 3 starter pack. Strict return parameters were provided the patient. She is to follow up with her primary care doctor in 2 to 4 days. Return to the emergency room for any new or worsening symptoms. She was discharged in stable condition - Lab Data Result diagrams: 11/26/20 22:46 11/26/20 22:46 Lab Results 11/26/20 11/26/20 11/26/20 Range/Units 22:46 22:46 22:46 WBC 7.6 (3.8-10.6) k/uL RBC 4.17 (3.80-5.40) m/uL Hgb 12.3 (11.4-16.0) gm/dL Hct 37.2 (34.0-46.0) % MCV 89.3 (80.0-100.0) fL MCH 29.5 (25.0-35.0) pg MCHC 33.1 (31.0-37.0) g/dL RDW 13.7 (11.5-15.5) % Plt Count 234 (150-450) k/uL MPV 6.9 Neutrophils % 67 % Lymphocytes % 26 % Monocytes % 4 % Eosinophils % 0 % Basophils % 0 % Neutrophils # 5.1 (1.3-7.7) k/uL Lymphocytes # 2.0 (1.0-4.8) k/uL Monocytes # 0.3 (0-1.0) k/uL Eosinophils # 0.0 (0-0.7) k/uL Basophils # 0.0 (0-0.2) k/uL Sodium 142 (137-145) mmol/L Potassium 4.4 (3.5-5.1) mmol/L Chloride 107 (98-107) mmol/L Carbon Dioxide 28 (22-30) mmol/L Anion Gap 7 mmol/L BUN 20 H (7-17) mg/dL Creatinine 0.69 (0.52-1.04) mg/dL Est GFR (CKD-EPI)AfAm >90 (>60 ml/min/1.73 sqM) Est GFR (CKD-EPI)NonAf >90 (>60 ml/min/1.73 sqM) Glucose 101 H (74-99) mg/dL Plasma Lactic Acid Shad (0.7-2.0) mmol/L Calcium 9.1 (8.4-10.2) mg/dL Total Bilirubin 0.1 L (0.2-1.3) mg/dL AST 20 (14-36) U/L ALT 15 (4-34) U/L Alkaline Phosphatase 60 (38-126) U/L Total Protein 6.4 (6.3-8.2) g/dL Albumin 3.9 (3.5-5.0) g/dL Lipase 60 (23-300) U/L Urine Color Yellow Urine Appearance Clear (Clear) Urine pH 6.0 (5.0-8.0) Ur Specific [place] 1.032 (1.001-1.035) Urine Protein Negative (Negative) Urine Glucose (UA) Negative (Negative) Urine Ketones Negative (Negative) Urine Blood Moderate H (Negative) Urine Nitrite Negative (Negative) Urine Bilirubin Negative (Negative) Urine Urobilinogen <2.0 (<2.0) mg/dL Ur Leukocyte Esterase Negative (Negative) Urine RBC 1 (0-5) /hpf Urine WBC 1 (0-5) /hpf Ur Squamous Epith Cells 1 (0-4) /hpf Urine Mucus Rare H (None) /hpf Urine HCG, Qual (Not Detectd) C. difficile (EIA) Intrp (Negative) 11/26/20 11/26/20 11/26/20 Range/Units 22:46 22:46 22:46 WBC (3.8-10.6) k/uL RBC (3.80-5.40) m/uL Hgb (11.4-16.0) gm/dL Hct (34.0-46.0) % MCV (80.0-100.0) fL MCH (25.0-35.0) pg MCHC (31.0-37.0) g/dL RDW (11.5-15.5) % Plt Count (150-450) k/uL MPV Neutrophils % % Lymphocytes % % Monocytes % % Eosinophils % % Basophils % % Neutrophils # (1.3-7.7) k/uL Lymphocytes # (1.0-4.8) k/uL Monocytes # (0-1.0) k/uL Eosinophils # (0-0.7) k/uL Basophils # (0-0.2) k/uL Sodium (137-145) mmol/L Potassium (3.5-5.1) mmol/L Chloride (98-107) mmol/L Carbon Dioxide (22-30) mmol/L Anion Gap mmol/L BUN (7-17) mg/dL Creatinine (0.52-1.04) mg/dL Est GFR (CKD-EPI)AfAm (>60 ml/min/1.73 sqM) Est GFR (CKD-EPI)NonAf (>60 ml/min/1.73 sqM) Glucose (74-99) mg/dL Plasma Lactic Acid Shad 0.9 (0.7-2.0) mmol/L Calcium (8.4-10.2) mg/dL Total Bilirubin (0.2-1.3) mg/dL AST (14-36) U/L ALT (4-34) U/L Alkaline Phosphatase (38-126) U/L Total Protein (6.3-8.2) g/dL Albumin (3.5-5.0) g/dL Lipase (23-300) U/L Urine Color Urine Appearance (Clear) Urine pH (5.0-8.0) Ur Specific [place] (1.001-1.035) Urine Protein (Negative) Urine Glucose (UA) (Negative) Urine Ketones (Negative) Urine Blood (Negative) Urine Nitrite (Negative) Urine Bilirubin (Negative) Urine Urobilinogen (<2.0) mg/dL Ur Leukocyte Esterase (Negative) Urine RBC (0-5) /hpf Urine WBC (0-5) /hpf Ur Squamous Epith Cells (0-4) /hpf Urine Mucus (None) /hpf Urine HCG, Qual Not Detected (Not Detectd) C. difficile (EIA) Intrp Negative (Negative) Disposition Clinical Impression: Nausea & vomiting, Diarrhea Disposition: HOME SELF-CARE Condition: Stable Instructions (If sedation given, give patient instructions): Acute Nausea and Vomiting (ED) Additional Instructions: Please follow up with your PCP in 2-4 days. Return to the ED for any new or worsening symptoms. Is patient prescribed a controlled substance at d/c from ED?: No Referrals: Amada Roblero MD [Primary Care Provider] - 1-2 days Time of Disposition: 00:51
[2020-11-27 00:59] VITALS: BP 105/70; PULSE 78
== END 2020-11-27 00:55 | disposition home or self-care (01) ==
LOC: EC 21:15
DX: R11.2 Nausea with vomiting, unspecified (principal); R19.7 Diarrhea, unspecified; R10.31 Right lower quadrant pain; F17.200 Nicotine dependence, unspecified, uncomplicated; F12.90 Cannabis use, unspecified, uncomplicated
CPT/HCPCS: 36415; 80053; 83605; 83690; 85025; 81001; 81025; 87324; 87045; 87046; 93975; 76856; 74177; 96374; 96375; 96361 ×2; 99284; J2405; J1885; S0119; Q9967

== ENCOUNTER 2021-02-14 04:31 | Emergency (ER) | payer MEDICARE, OTHER ==
[2021-02-14 04:37] VITALS: BP 116/83; PULSE 81; RESP 19; TEMP 97.9
[2021-02-14] MEDS ORDERED: ALBUTEROL HFA INHALER INHALATION STA (04:55)
[2021-02-14] MEDS ORDERED: IBUPROFEN 800 MG TAB PO STA (04:55)
[2021-02-14] MEDS ORDERED: ACETAMINOPHEN TAB 500 MG TAB PO STA (04:55)
--- NOTE | 2021-02-14 04:56 | ED ---
URI HPI - General Chief Complaint: Upper Respiratory Infection Stated Complaint: chest congestion,abd pain Time Seen by Provider: 02/14/21 04:32 Source: patient, RN notes reviewed, old records reviewed Mode of arrival: ambulatory Limitations: no limitations - History of Present Illness Initial Comments: This is a 30-year-old female to the ER for evaluation of respiratory infection cough and congestion. History of similar the past that she gets is some every other year so about the same time. No fevers. Patient is concerned for coronavirus. But no significant fevers. MD Complaint: fever, cough, nasal congestion -: days(s) Severity: moderate Severity scale (1-10): 5 Quality: sharp, stabbing, aching Consistency: constant Improves With: nothing Worsens With: nothing Context: other (Exposure to coronavirus) Associated Symptoms: fever, chills, myalgias Treatments Prior to Arrival: none - Related Data Home Medications Medication Instructions Recorded Confirmed Ergocalciferol (Vitamin D2) 1,250 mcg PO BENITEZ 11/26/20 11/26/20 [Drisdol (50,000 Iu)] Multivitamins, Thera [Multivitamin 1 tab PO DAILY 11/26/20 11/26/20 (formulary)] Previous Rx's Medication Instructions Recorded Azithromycin [Zithromax] 250 mg PO DAILY 1 Days #1 tab 02/14/21 predniSONE 50 mg PO DAILY #5 tab 02/14/21 Allergies Allergy/AdvReac Type Severity Reaction Status Date / Time No Known Allergies Allergy Verified 02/14/21 04:37 Review of Systems ROS Statement: Those systems with pertinent positive or pertinent negative responses have been documented in the HPI. ROS Other: All systems not noted in ROS Statement are negative. Past Medical History Past Medical History: Asthma, Skin Disorder Additional Past Medical History / Comment(s): detached retina at . Psoriasis, OVARIAN CYST, "heart problems". KIDNEY STONES, History of Any Multi-Drug Resistant Organisms: MRSA Date of last positivie culture/infection: 08/24/2012 MDRO Source:: right hip Past Surgical History: Section, Hernia Repair Additional Past Surgical History / Comment(s): RIGHT OVARIAN CYST REMOVED Past Anesthesia/Blood Transfusion Reactions: No Reported Reaction Past Psychological History: Anxiety, Bipolar, Depression Smoking Status: Current every day smoker Past Alcohol Use History: Occasional Past Drug Use History: Marijuana - Past Family History Mother Family Medical History: Cancer General Exam General appearance: alert, in no apparent distress Head exam: Present: atraumatic, normocephalic, normal inspection Eye exam: Present: normal appearance, PERRL, EOMI. Absent: scleral icterus, conjunctival injection, periorbital swelling ENT exam: Present: normal exam, mucous membranes moist Neck exam: Present: normal inspection. Absent: tenderness, meningismus, lymphadenopathy Respiratory exam: Present: normal lung sounds bilaterally. Absent: respiratory distress, wheezes, rales, rhonchi, stridor Cardiovascular Exam: Present: regular rate, normal rhythm, normal heart sounds. Absent: systolic murmur, diastolic murmur, rubs, gallop, clicks GI/Abdominal exam: Present: soft, normal bowel sounds. Absent: distended, tenderness, guarding, rebound, rigid Extremities exam: Present: normal inspection, full ROM, normal capillary refill. Absent: tenderness, pedal edema, joint swelling, calf tenderness Back exam: Present: normal inspection Neurological exam: Present: alert, oriented X3, CN II-XII intact Psychiatric exam: Present: normal affect, normal mood Skin exam: Present: warm, dry, intact, normal color. Absent: rash Course Vital Signs 02/14/21 04:34 Temperature 97.9 F Pulse Rate 81 Respiratory 19 Rate Blood Pressure 116/83 O2 Sat by Pulse 96 Oximetry - Reevaluation(s) Reevaluation #1: 02/14/21 04:56 Medical record is reviewed Patient symptoms are improved here in the ER Patient informed results and questions answered Medical Decision Making - Medical Decision Making 22 female to the emergency department today. Patient presents today for evaluation regards to cough and congestion upper respiratory infection x-rays negative patient can be discharged home - Lab Data Lab Results 02/14/21 Range/Units 04:59 Coronavirus (PCR) Not Detected (Not Detectd) - Radiology Data Radiology results: report reviewed (Chest x-rays negative for acute disease), image reviewed Disposition Clinical Impression: Acute upper respiratory infection, Acute viral bronchitis Disposition: HOME SELF-CARE Condition: Good Instructions (If sedation given, give patient instructions): Upper Respiratory Infection (ED) Prescriptions: predniSONE 50 mg PO DAILY #5 tab Azithromycin [Zithromax] 250 mg PO DAILY 1 Days #1 tab Is patient prescribed a controlled substance at d/c from ED?: No Referrals: Amada Roblero MD [Primary Care Provider] - 1-2 days
--- NOTE | 2021-02-14 05:10 | XR ---
EXAMINATION TYPE: XR chest 1V portable DATE OF EXAM: 02/14/2021 COMPARISON: 10/16/2020 HISTORY: Cough TECHNIQUE: Single view FINDINGS: Heart and mediastinum are normal. Lungs are clear. Diaphragm is normal. Bony thorax appears normal. IMPRESSION: Normal chest. No change.
[2021-02-14] MEDS ORDERED: AZITHROMYCIN 500 MG TAB PO STA (05:53)
[2021-02-14] MEDS ORDERED: dexAMETHasone 2 MG TAB PO STA (05:53)
== END 2021-02-14 06:16 | disposition home or self-care (01) ==
LOC: EC 04:31
DX: J06.9 Acute upper respiratory infection, unspecified (principal); J20.8 Acute bronchitis due to other specified organisms; J45.909 Unspecified asthma, uncomplicated; F17.200 Nicotine dependence, unspecified, uncomplicated; Z20.822 Contact with and (suspected) exposure to COVID-19; F12.90 Cannabis use, unspecified, uncomplicated
CPT/HCPCS: 94640; 87635; 71045; 99283; J8540

== ENCOUNTER 2021-11-10 11:54 | Emergency (ER) | payer MEDICARE, OTHER ==
[2021-11-10 12:00] VITALS: BP 99/66; PULSE 73; RESP 18
--- NOTE | 2021-11-10 13:12 | ED ---
General Adult HPI - General Chief complaint: ENT Stated complaint: sore throat Time Seen by Provider: 11/10/21 13:00 Source: patient, RN notes reviewed, old records reviewed Mode of arrival: ambulatory Limitations: no limitations - History of Present Illness Initial comments: This is a 31-year-old female presents emergency Department complaining of a sore throat for a week. Patient states she's been in the ER 2 other times and once she was told it was a viral infection the other time she was given steroids and that helped but the pain is back. Patient states very difficult to swallow. Patient denies any fever chills. Patient denies any difficulty breathing. Patient denies any other symptoms at this time. - Related Data Home Medications Medication Instructions Recorded Confirmed Ergocalciferol (Vitamin D2) 1,250 mcg PO BENITEZ 11/26/20 11/26/20 [Drisdol (50,000 Iu)] Multivitamins, Thera [Multivitamin 1 tab PO DAILY 11/26/20 11/26/20 (formulary)] Previous Rx's Medication Instructions Recorded Azithromycin [Zithromax] 250 mg PO DAILY 1 Days #1 tab 02/14/21 Amoxic-Pot Clav 875-125Mg 1 tab PO BID 10 Days #20 tab 11/10/21 [Augmentin 875-125] predniSONE [Deltasone] 40 mg PO DAILY #8 tab 11/10/21 Allergies Allergy/AdvReac Type Severity Reaction Status Date / Time No Known Allergies Allergy Verified 11/10/21 12:00 Review of Systems ROS Statement: Those systems with pertinent positive or pertinent negative responses have been documented in the HPI. ROS Other: All systems not noted in ROS Statement are negative. Past Medical History Past Medical History: Asthma, Skin Disorder Additional Past Medical History / Comment(s): detached retina at . Psoriasis, OVARIAN CYST, "heart problems". KIDNEY STONES, History of Any Multi-Drug Resistant Organisms: MRSA Date of last positivie culture/infection: 08/24/2012 MDRO Source:: right hip Past Surgical History: Section, Hernia Repair Additional Past Surgical History / Comment(s): RIGHT OVARIAN CYST REMOVED Past Anesthesia/Blood Transfusion Reactions: No Reported Reaction Past Psychological History: Anxiety, Bipolar, Depression Smoking Status: Current every day smoker Past Alcohol Use History: Occasional Past Drug Use History: Marijuana - Past Family History Mother Family Medical History: Cancer General Exam - General Exam Comments Initial Comments: GENERAL Patient is well-developed and well-nourished. Patient is in mild distress. ENT Patient's throat shows very mild erythema there is no swelling there is no exudate patient has no lymphadenopathy posteriorly or anteriorly. EYES Patient's pupils are equal and round. Extraocular motion is intact SKIN Unremarkable NEURO The patient is alert and oriented 3 PYSCH Patient has normal interpersonal interactions. MUSCULOSKELETAL All 4 times and full range of motion. Limitations: no limitations Course Vital Signs 11/10/21 11:55 Pulse Rate 73 Respiratory 18 Rate Blood Pressure 99/66 O2 Sat by Pulse 97 Oximetry Medical Decision Making - Medical Decision Making Soft tissue x-ray is relatively normally there was some question about a little bit of thickening of the epiglottis however the patient had no difficulty breathing her only complaint was painful when she swallows. Patient states she has no difficulty swallowing it's just painful to swallow. Patient has been instructed if there is any difficulty breathing or if symptoms worsen to come back to the emergency department. - Lab Data Lab Results 11/10/21 Range/Units 13:18 Group A Strep (PCR) NOT DETECTED (Not Detectd) Disposition Clinical Impression: Acute pharyngitis Disposition: HOME SELF-CARE Condition: Good Instructions (If sedation given, give patient instructions): Pharyngitis (ED) Additional Instructions: Patient is to follow-up with primary medical care doctor tomorrow. Patient is to return to emergency department if any symptoms worsen or she has any difficulty breathing. Prescriptions: Amoxic-Pot Clav 875-125Mg [Augmentin 875-125] 1 tab PO BID 10 Days #20 tab predniSONE [Deltasone] 40 mg PO DAILY #8 tab Is patient prescribed a controlled substance at d/c from ED?: No Referrals: Amada Roblero MD [Primary Care Provider] - 1-2 days Time of Disposition: 14:06
--- NOTE | 2021-11-10 13:46 | XR ---
Soft tissue neck HISTORY: Tonsillitis, sore throat 2 views of the neck The epiglottis appears mildly prominent however there may be slight rotation. Prevertebral soft tissu es are normal. Some spurring is noted at C3-4, reversal of the normal cervical lordosis may be due to muscle spasm. Some prominence of the adenoidal soft tissue noted with some narrowing of the posterio r pharyngeal airway. The airway is patent however. No radio opaque foreign body. IMPRESSION: Findings may be inflammatory. Follow-up as indicated.
== END 2021-11-10 14:27 | disposition home or self-care (01) ==
LOC: EC 11:54
DX: J02.9 Acute pharyngitis, unspecified (principal); J45.909 Unspecified asthma, uncomplicated; F17.200 Nicotine dependence, unspecified, uncomplicated
CPT/HCPCS: 70360; 87651

== ENCOUNTER → 2022-04-11 | Outpatient (CLI) | payer MEDICARE, OTHER ==
--- NOTE | 2022-04-11 08:42 | USB ---
Reason for Exam: Clinical finding. Technique: Method: Targeted. Findings: The lower inner quadrant of the left breast was scanned. Targeted ultrasound left breast from 7-8:00 was performed. No evaluation of the retroareolar area or axilla. There is a round hypoechoic superficial lesion within the left breast 7:00 12 cm from the nipple with posterior acoustic enhancement. This measures 0.4 x 0.5 x 0.5 cm. Etiologies include a sebaceous cyst versus possible fibroadenoma. Overall Assessment: Benign, BI-RAD 2 Management: Screening Mammogram of both breasts at age 42. A clinical breast exam by your physician is recommended on an annual basis and results should be correlated with mammographic findings. This exam should not preclude additional follow-up of suspicious palpable abnormalities. Results were given to the patient verbally at the time of exam. Electronically signed and approved by: Santhosh Gill D.O.
== END | disposition home or self-care (01) ==
LOC: RADUSWWP 08:11
PROVIDERS: ATTEND Family Medicine
DX: N63.24 Unspecified lump in the left breast, lower inner quadrant (principal)

== ENCOUNTER → 2022-04-19 | Outpatient (CLI) | payer MEDICARE, OTHER ==
[2022-04-19 09:06] VITALS: BP 100/70; PULSE 78; RESP 16; TEMP 98.5
--- NOTE | 2022-04-19 09:29 | P.GSHP ---
History of Present Illness H&P Date: 04/19/22 Chief Complaint: nodule left breast Maddie is a 31-year-old white female seen in consultation for Dr. Shadi Red regarding an area of nodularity in her left breast. It is in the inframammary fold. It has increased in size from September 2021. It is painful when she wears an underwire bra. She has bilateral nipple piercings. She has not had any surgery on her breast. She is not complaining of any recent trauma or infection in the breast. She drinks caffeine occasionally. Her periods are regular, she is on her period now. She does not have any change in the nodule with her monthly. Caffeine: One pop/month Nicotine:none, stopped three months ago chocolate: monthly Family History: sister: kidney cancer mother: breast lumps maternal grandmother: lung cancer maternal grandfather: CVA maternal great grandmother: spider cancer paternal grandmother: lung cancer paternal grandfather: heart disease Hormonal history: Menarche: 12 M2 breat fed: yes age at first : 23 periods regular She is having her period now She is control pills as a teenager for approximately 2 years Surgical history: ovarian cyst urachial cyst 2 c sections 3 colonoscopies tubaligation Medical History: MRSA infection right hip in 2012 Bipolar/anxiety Social History: nicotine: stopped 3 months ago used to smoke 1 PPD alcohol: occasional drugs: none; a marijuana in the past - Constitutional Constitutional: Reports sweats - EENT Eyes: denies blurred vision, denies pain Ears: deny: decreased hearing, tinnitus Ears, nose, mouth and throat: Denies headache, Denies sore throat - Breasts Breasts: bilateral: as per HPI - Cardiovascular Comment: heart murmur Cardiovascular: Denies chest pain, Denies shortness of breath - Respiratory Respiratory: Denies cough, Denies 7 - Gastrointestinal Gastrointestinal: Denies abdominal pain, Denies diarrhea, Denies nausea, Denies vomiting - Genitourinary (Female) Genitourinary: Denies dysuria, Denies hematuria - Menstruation Menstruation: Reports period normal - Musculoskeletal Musculoskeletal: Denies myalgias - Integumentary Integumentary: Denies pruritus, Denies rash - Neurological Neurological: Denies numbness, Denies weakness - Psychiatric Psychiatric: Denies anxiety, Denies depression - Endocrine Endocrine: Denies fatigue, Denies weight change - Hematologic/Lymphatic Comment: none - Allergic/Immunologic Allergic/Immunologic: Reports seasonal allergies Past Medical History Past Medical History: Asthma, Skin Disorder Additional Past Medical History / Comment(s): detached retina at . Psoriasis, OVARIAN CYST, "heart problems". KIDNEY STONES, History of Any Multi-Drug Resistant Organisms: MRSA Date of last positivie culture/infection: 08/24/2012 MDRO Source:: right hip Past Surgical History: Section, Hernia Repair Additional Past Surgical History / Comment(s): RIGHT OVARIAN CYST REMOVED Past Anesthesia/Blood Transfusion Reactions: No Reported Reaction Past Psychological History: Anxiety, Bipolar, Depression Additional Psychological History / Comment(s): started at age 9-NOT ON ANY MEDS Smoking Status: Current every day smoker Past Alcohol Use History: Occasional Additional Past Alcohol Use History / Comment(s): SMOKES < 1/2 PPD SINCE AGE 18 Past Drug Use History: Marijuana - Past Family History Mother Family Medical History: Cancer Medications and Allergies Home Medications Medication Instructions Recorded Confirmed Type Multivitamins, Thera [Multivitamin 1 tab PO DAILY 11/26/20 04/19/22 History (formulary)] Melatonin 3 mg PO HS 04/19/22 04/19/22 History Allergies Allergy/AdvReac Type Severity Reaction Status Date / Time No Known Allergies Allergy Verified 04/19/22 09:03 Surgical - Exam Vital Signs Temp Pulse Resp BP Pulse Ox 98.5 F 78 16 100/70 98 04/19/22 09:03 04/19/22 09:03 04/19/22 09:03 04/19/22 09:03 04/19/22 09:03 BMI: 40.8 - General no distress - Eyes normal ocular movement - ENT no hearing loss - Neck trachea midline - Respiratory normal respiratory effort, clear to auscultation - Cardiovascular Rhythm: regular Heart Sounds: normal: S1, S2 - Abdomen Abdomen: soft, non tender, no guarding, no rigid, no rebound - Integumentary normal turgor - Neurologic no disoriented, no combative - Musculoskeletal normal gait, normal posture - Psychiatric oriented to time, oriented to person, oriented to place, speech is normal, memory intact Breast Exam: BRA: 36DD inspection: Bilateral grade 2/3 ptosis Palpation: Right breast: Multi-positional exam fibrocystic changes no dominant masses or nodules of concern Weighted axilla: No adenopathy of concern Left breast: Multi-positional exam fibrocystic changes in the lower medial aspect of the pressors approximately a 5-6 mm area of nodularity consistent with a sebaceous cyst Left axilla: No adenopathy of concern Results Ultrasound personally reviewed of the left breast Assessment and Plan Assessment: Impression: Cystic lesion left breast inframammary area approximately 8 minute millimeters in size tender when she wears a bra and increasing believed to be most likely sebaceous cyst Plan: Removal of sebaceous cyst in the operating room Cc: Dr. Karley Turner
== END ==
LOC: WWCWWP 08:55
PROVIDERS: ATTEND Surgery
DX: N63.20 Unspecified lump in the left breast, unspecified quadrant (principal); F31.9 Bipolar disorder, unspecified; J45.909 Unspecified asthma, uncomplicated; F17.200 Nicotine dependence, unspecified, uncomplicated

== ENCOUNTER → 2022-07-28 | Outpatient (CLI) | payer MEDICARE, OTHER ==
[2022-07-28 09:48] VITALS: BP 102/70; PULSE 76; RESP 17; TEMP 98.1
--- NOTE | 2022-07-28 09:58 | P.PN ---
Subjective Progress Note Date: 07/28/22 Principal diagnosis: cytic lesion left breast nodule left breast Maddie is a 31-year-old white female seen in consultation for Dr. Shadi Red regarding an area of nodularity in her left breast. It is in the inframammary fold. It has increased in size from September 2021. It is painful when she wears an underwire bra. She has bilateral nipple piercings. She has not had any surgery on her breast. She is not complaining of any recent trauma or infection in the breast. She drinks caffeine occasionally. Her periods are regular, she is on her period now. She does not have any change in the nodule with her monthly cycle. Limited left breast ultrasound on 04-11-22 revealed superficial lesion at 7:00 left breast possible sebaceous cyst vs. fibroadenoma. The patient states proximally 2 weeks ago the area of the cystic lesion in the left breast became inflamed and tender. She was seen in the emergency room and told that it should be removed. She was not put on any antibiotics. She has not had any fever or chills. The area however has increased in size and is tender. Caffeine: One pop/month Nicotine:none, stopped three months ago chocolate: monthly Family History: sister: kidney cancer mother: breast lumps maternal grandmother: lung cancer maternal grandfather: CVA maternal great grandmother: spider cancer paternal grandmother: lung cancer paternal grandfather: heart disease Hormonal history: Menarche: 12 M2 breat fed: yes age at first : 23 periods regular She used control pills as a teenager for approximately 2 years Surgical history: ovarian cyst urachial cyst 2 c sections 3 colonoscopies tubaligation Medical History: MRSA infection right hip in 2012 Bipolar/anxiety Social History: nicotine: stopped 3 months ago used to smoke 1 PPD alcohol: occasional drugs: none; a marijuana in the past - Constitutional Constitutional: Reports sweats - EENT Eyes: denies blurred vision, denies pain Ears: deny: decreased hearing, tinnitus Ears, nose, mouth and throat: Denies headache, Denies sore throat - Breasts Breasts: bilateral: as per HPI - Cardiovascular Comment: heart murmur Cardiovascular: Denies chest pain, Denies shortness of breath - Respiratory Respiratory: Denies cough - Gastrointestinal Gastrointestinal: Denies abdominal pain, Denies diarrhea, Denies nausea, Denies vomiting - Genitourinary (Female) Genitourinary: Denies dysuria, Denies hematuria - Menstruation Menstruation: Reports period normal - Musculoskeletal Musculoskeletal: Denies myalgias - Integumentary Integumentary: Denies pruritus, Denies rash - Neurological Neurological: Denies numbness, Denies weakness - Psychiatric Psychiatric: Denies anxiety, Denies depression - Endocrine Endocrine: Denies fatigue, Denies weight change - Hematologic/Lymphatic Comment: none - Allergic/Immunologic Allergic/Immunologic: Reports seasonal allergies Past Medical History Past Medical History: Asthma, Skin Disorder Additional Past Medical History / Comment(s): detached retina at . Psoriasis, OVARIAN CYST, "heart problems". KIDNEY STONES, History of Any Multi-Drug Resistant Organisms: MRSA Date of last positivie culture/infection: 08/24/2012 MDRO Source:: right hip Past Surgical History: Section, Hernia Repair Additional Past Surgical History / Comment(s): RIGHT OVARIAN CYST REMOVED Past Anesthesia/Blood Transfusion Reactions: No Reported Reaction Past Psychological History: Anxiety, Bipolar, Depression Additional Psychological History / Comment(s): started at age 9-NOT ON ANY MEDS Smoking Status: Current every day smoker Past Alcohol Use History: Occasional Additional Past Alcohol Use History / Comment(s): SMOKES < 1/2 PPD SINCE AGE 18 Past Drug Use History: Marijuana - Past Family History Mother Family Medical History: Cancer Medications and Allergies Home Medications Medication Instructions Recorded Confirmed Type Multivitamins, Thera [Multivitamin 1 tab PO DAILY 11/26/20 04/19/22 History (formulary)] Melatonin 3 mg PO HS 04/19/22 04/19/22 History Allergies Allergy/AdvReac Type Severity Reaction Status Date / Time No Known Allergies Allergy Verified 04/19/22 09:03 Objective - Vital Signs Vital signs: Vital Signs Temp 98.1 F 07/28/22 09:45 Pulse 76 07/28/22 09:45 Resp 17 07/28/22 09:45 BP 102/70 07/28/22 09:45 Pulse Ox 98 07/28/22 09:45 FiO2 Intake & Output 07/27/22 07/28/22 07/28/22 18:59 06:59 18:59 Weight 117.027 kg - Constitutional General appearance: Present: cooperative - EENT Eyes: Present: EOMI ENT: Present: hearing grossly normal - Neck Neck: Present: normal ROM - Respiratory Respiratory: bilateral: CTA - Cardiovascular Rhythm: regular Heart sounds: normal: S1, S2 - Gastrointestinal General gastrointestinal: Present: soft - Integumentary Integumentary: Present: normal turgor - Musculoskeletal Musculoskeletal: Present: gait normal - Psychiatric Psychiatric: Present: A&O x's 3, appropriate affect, intact judgment & insight - Additional findings Additional findings: Breast Exam: BRA: 36DD inspection: Bilateral grade 2/3 ptosis Palpation: Right breast: Multi-positional exam fibrocystic changes no dominant masses or nodules of concern Weighted axilla: No adenopathy of concern Left breast: Multi-positional exam fibrocystic changes in the lower medial aspect of the breast approximately 1.5cm area of nodularity consistent with an inflamed sebaceous cyst Left axilla: No adenopathy of concern Assessment and Plan Assessment: Impression: Cystic lesion left breast inframammary area approximately 1.5 cm in size tender when she wears a bra and increasing believed to be most likely sebaceous cyst MRSA infection right hip in 2011 Bipolar/anxiety Plan: Removal/drainage sebaceous cyst in the operating room; it may be necessary to leave skin ope and packed patient understands antibiotic keflex Cc: Dr. Karley Turner
== END ==
LOC: WWCWWP 08:49
PROVIDERS: ATTEND Surgery
DX: D24.2 Benign neoplasm of left breast (principal); N60.02 Solitary cyst of left breast; F17.210 Nicotine dependence, cigarettes, uncomplicated; F31.9 Bipolar disorder, unspecified; F41.9 Anxiety disorder, unspecified; J45.909 Unspecified asthma, uncomplicated; L72.3 Sebaceous cyst; Z80.1 Family history of malignant neoplasm of trachea, bronchus and lung; Z82.3 Family history of stroke; Z82.49 Family history of ischemic heart disease and other diseases of the circulatory system; Z87.442 Personal history of urinary calculi

== ENCOUNTER 2022-08-01 12:10 | Day surgery (SDC) | payer MEDICARE, OTHER ==
[~2022-08-01 12:10] MED LIST: DEXAMETHASONE SOD PHOSPHATE 4 MG/ML 1 ML VIAL IV ONE; HEPARIN SODIUM,PORCINE/PF 5,000 UNIT/0.5 ML SYRINGE SQ PRN; HYDROmorphone 0.5 MG/0.5 ML SYRINGE IVP PRN; LACTATED RINGERS 1,000 ML IV SCH; ONDANSETRON 4 MG/2 ML VIAL IVP ONE
[2022-08-01] MEDS ORDERED: PROPOFOL 10 MG/ML 20 ML VIAL IV ONE (15:01)
[2022-08-01] MEDS ORDERED: MIDAZOLAM 2 MG/2 ML VIAL ONE (15:01)
[2022-08-01] MEDS ORDERED: fentaNYL (PF) 50 MCG/ML 2 ML AMP ONE (15:01)
[2022-08-01] MEDS ORDERED: LIDOCAINE 2% INJ 20 MG/ML (2 ML VIAL) ONE (15:01)
[2022-08-01] MEDS ORDERED: BACITRACIN ZINC 500 UNIT/GM OINT 28.4 GM TUBE TOPICAL ONE (15:54)
--- NOTE | 2022-08-01 15:54 | P.OP ---
Date of Procedure: 08/01/22 Preoperative Diagnosis: Probable sebaceous cyst left breast Postoperative Diagnosis: Same Procedure(s) Performed: Resection cystic lesion left breast Anesthesia: YELENA Surgeon: Fabi Olivia Estimated Blood Loss (ml): 5 IV fluids (ml): 500 Pathology: other (Cystic lesion left breast) Condition: stable Disposition: same day Indications for Procedure: Cystic lesion left breast/painful Operative Findings: Probable sebaceous cyst left breast Description of Procedure: Patient was brought to the operating room and following induction of anesthesia the left breast was prepped in a sterile fashion. An incision was made over the palpable abnormality in the skin on the anterior surface was excised with the lesion. Wide excision of the lesion was performed. This appeared to be consistent with a sebaceous cyst. There was no evidence of infection within the breast. The wound was well irrigated. The deep tissues were closed using 3-0 Vicryl suture. The skin was closed using 3-0 Vicryl subcutaneous suture and interrupted nylon sutures. Interrupted nylon skin sutures were placed in case infection occurred and some sutures would have to be removed. The patient tolerated the procedure in stable condition.
[2022-08-01 16:12] VITALS: TEMP 97.7
[2022-08-01 16:47] VITALS: RESP 18
[2022-08-01] MEDS ORDERED: HYDROcodone/APAP 5-325MG 1 EACH TAB ONE (16:49)
[2022-08-01 17:06] VITALS: BP 111/73; PULSE 66
[2022-08-01] MEDS ORDERED: ONDANSETRON 4 MG/2 ML VIAL IVP ONE (17:15)
[2022-08-01] MEDS ORDERED: ONDANSETRON 4 MG/2 ML VIAL ONE (17:17)
== END 2022-08-01 17:31 | disposition home or self-care (01) ==
LOC: OR 12:10
PROVIDERS: ATTEND Surgery
DX: N60.82 Other benign mammary dysplasias of left breast (principal); L72.0 Epidermal cyst
CPT/HCPCS: 19120; 81025; 88304; J2250; J1100; J0690; J2405; J3010; J2704; J1170; J1644; J2001

== ENCOUNTER → 2022-08-10 | Outpatient (CLI) | payer MEDICARE, OTHER ==
[2022-08-10 10:11] VITALS: BP 114/76; PULSE 85; RESP 17; TEMP 98.2
--- NOTE | 2022-08-10 10:19 | P.PN ---
Progress Note - Text Progress Note Date: 08/10/22 Maddie is status post resection of a ruptured epidermal inclusion cyst on 08-01-22. She tolerated the procedure without difficulty. Examination: Incision clean and dry Plan: Remove sutures Follow-up as needed CC: DR. Turner
== END ==
LOC: WWCWWP 09:24
PROVIDERS: ATTEND Surgery
DX: Z85.3 Personal history of malignant neoplasm of breast (principal); F17.200 Nicotine dependence, unspecified, uncomplicated

== ENCOUNTER 2023-08-25 20:24 | Emergency (ER) | payer MEDICARE, OTHER ==
[2023-08-25 21:37] VITALS: BP 125/84; PULSE 100; TEMP 98.4
--- NOTE | 2023-08-25 22:12 | ED ---
General Adult HPI - General Chief complaint: Upper Respiratory Infection Stated complaint: Fatigue, cough, heavy chest Time Seen by Provider: 08/25/23 20:45 Source: patient Mode of arrival: ambulatory Limitations: no limitations - History of Present Illness Initial comments: 32-year-old female presenting to the ED with complaints of myalgias. Patient st ates 3 days ago onset of myalgias, rhinorrhea, congestion, dry cough. Since onset does not report worsening of cough. Denies fevers. Reports she took an at home COVID test today which was inconclusive which is what made her come to the ED as she wants a repeat test. No chest pains or shortness of breath. No other complaints at this time. - Related Data Home Medications Medication Instructions Recorded Confirmed Melatonin 5 mg PO HS 04/19/22 08/10/22 Previous Rx's Medication Instructions Recorded Cephalexin [Keflex] 500 mg PO Q6HR 1 Days #20 cap 07/28/22 HYDROcodone/APAP 5-325MG [[place] 5] 1 - 2 each PO Q4H PRN #10 tab 07/28/22 Allergies Allergy/AdvReac Type Severity Reaction Status Date / Time No Known Allergies Allergy Verified 08/25/23 20:34 Review of Systems ROS Statement: Those systems with pertinent positive or pertinent negative responses have been documented in the HPI. ROS Other: All systems not noted in ROS Statement are negative. Past Medical History Past Medical History: Asthma, Chest Pain / Angina, Skin Disorder Additional Past Medical History / Comment(s): detached retina at . Psoriasis, OVARIAN CYST, "heart problems". KIDNEY STONES, History of Any Multi-Drug Resistant Organisms: MRSA Date of last positivie culture/infection: 08/24/2012 MDRO Source:: right hip Past Surgical History: Section, Tubal Ligation Additional Past Surgical History / Comment(s): RIGHT OVARIAN CYST REMOVED, internal umbilical cord cyst removed, colonoscopies Past Anesthesia/Blood Transfusion Reactions: No Reported Reaction Past Psychological History: Anxiety, Bipolar, Depression Smoking Status: Former smoker Past Alcohol Use History: Occasional Past Drug Use History: Marijuana - Past Family History Mother Family Medical History: Cancer General Exam Limitations: no limitations General appearance: alert Eye exam: Present: normal appearance ENT exam: Present: normal oropharynx Neck exam: Present: normal inspection Respiratory exam: Present: normal lung sounds bilaterally Cardiovascular Exam: Present: regular rate GI/Abdominal exam: Present: soft. Absent: distended, tenderness, guarding, rebound Neurological exam: Present: alert, oriented X3 Skin exam: Present: warm, dry Course Vital Signs 08/25/23 20:33 Temperature 98.4 F Pulse Rate 100 Respiratory 20 Rate Blood Pressure 125/84 O2 Sat by Pulse 98 Oximetry Medical Decision Making - Medical Decision Making Was pt. sent in by a medical professional or institution (, PA, HELPER MARBLE FINISHER, urgent care, hospital, or alf...) When possible be specific @ -No Did you speak to anyone other than the patient for history (EMS, parent, family, police, friend...)? What history was obtained from this source @ -No Did you review nursing and triage notes (agree or disagree)? Why? @ -I reviewed and agree with nursing and triage notes Were old charts reviewed (outside hosp., previous admission, EMS record, old EKG, old radiological studies, urgent care reports/EKG's, alf records)? Report findings @ -No old charts were reviewed Differential Diagnosis (chest pain, altered mental status, abdominal pain women, abdominal pain men, vaginal bleeding, weakness, fever, dyspnea, syncope, headache, dizziness, GI bleed, back pain, seizure, CVA, palpatations, mental health, musculoskeletal)? @ -Differential Fever: Pneumonia, viral URI, endocarditis, myocarditis, pericarditis, otitis, sinusitis, peritonsillar Abscess, retropharyngeal Abscess, epiglottitis, peritonitis, appendicitis, Aruna cystitis, diverticulitis, hepatitis, colitis, UTI, PID, TOA, pyelonephritis, prostatitis, epididymitis, meningitis, encephalitis, pulmonary embolism, CVA, thyroid storm, pancreatitis, adrenal crisis, cavernous sinus thrombosis, this is not meant to be an all-inclusive list. EKG interpreted by me (3pts min.). @ -None X-rays interpreted by me (1pt min.). @ -None done CT interpreted by me (1pt min.). @ -None done U/S interpreted by me (1pt. min.). @ -None done What testing was considered but not performed or refused? (CT, X-rays, U/S, labs)? Why? @ -None What meds were considered but not given or refused? Why? @ -None Did you discuss the management of the patient with other professionals (professionals i.e. , PA, HELPER MARBLE FINISHER, lab, RT, psych nurse, social work professor, awning spreader, teacher, electronic warfare officer, casework manager)? Give summary @ -No Was smoking cessation discussed for >3mins.? @ -No Was critical care preformed (if so, how long)? @ -No Were there social determinants of health that impacted care today? How? (Homelessness, low income, unemployed, alcoholism, drug addiction, transportation, low edu. Level, literacy, decrease access to med. care, alf, rehab)? @ -No Was there de-escalation of care discussed even if they declined (Discuss DNR or withdrawal of care, Hospice)? DNR status @ -No What co-morbidities impacted this encounter? (DM, HTN, Smoking, COPD, CAD, Cancer, CVA, ARF, Chemo, Hep., AIDS, mental health diagnosis, sleep apnea, morbid obesity)? @ -None Was patient admitted / discharged? Hospital course, mention meds given and route, prescriptions, significant lab abnormalities, going to OR and other pertinent info. @ -Discharge 32-year-old female presenting to the ED with primary complaints of myalgias over the past few days. Also does note some associated rhinorrhea, congestion, dry cough. On examination lungs are clear to auscultation. Vital signs are stable, afebrile. No concerns for pneumonia at this time. Serology testing here shows positive for influenza A. She is currently out of the window for Tamiflu. Provided dose of steroids here. Discharged home in stable condition. Advised proper hydration. Advise Motrin Tylenol as needed for symptoms. Discussed return precautions with patient who verbalized agreement. Undiagnosed new problem with uncertain prognosis? @ -No Drug Therapy requiring intensive monitoring for toxicity (Heparin, Nitro, Insulin, Cardizem)? @ -No Were any procedures done? @ -No Diagnosis/symptom? @ -Influenza A Acute, or Chronic, or Acute on Chronic? @ -Acute Uncomplicated (without systemic symptoms) or Complicated (systemic symptoms)? @ -Uncomplicated Side effects of treatment? @ -No Exacerbation, Progression, or Severe Exacerbation? @ -No Poses a threat to life or bodily function? How? (Chest pain, USA, DC, pneumonia, PE, COPD, DKA, ARF, appy, cholecystitis, CVA, Diverticulitis, Homicidal, Suicidal, threat to staff... and all critical care pts) @ -No - Lab Data Lab Results 08/25/23 Range/Units 20:55 Influenza Type A (PCR) Detected A (Not Detectd) Influenza Type B (PCR) Not Detected (Not Detectd) RSV (PCR) Not Detected (Not Detectd) SARS-CoV-2 (PCR) Not Detected (Not Detectd) Disposition Clinical Impression: Influenza A Disposition: HOME SELF-CARE Condition: Good Instructions (If sedation given, give patient instructions): Upper Respiratory Infection (ED), Influenza (ED) Additional Instructions: Please return to the Emergency Department if symptoms worsen or any other concerns. Please follow-up with your primary care provider. Is patient prescribed a controlled substance at d/c from ED?: No Referrals: Amada Roblero MD [Primary Care Provider] - 1-2 days Time of Disposition: 22:14
[2023-08-25] MEDS: dexAMETHasone 2 MG TAB PO STA (22:21)
[2023-08-25 23:00] VITALS: RESP 18
== END 2023-08-25 22:27 | disposition home or self-care (01) ==
LOC: EC 20:24
DX: J10.1 Influenza due to other identified influenza virus with other respiratory manifestations (principal); Z87.891 Personal history of nicotine dependence
CPT/HCPCS: 87636; 99283; J8540

== ENCOUNTER 2023-09-09 15:16 | Emergency (ER) | payer MEDICARE, OTHER ==
[2023-09-09 16:02] LABS: Appearance,Urine Clear (Clear); Bilirubin,Urine Negative (Negative); Blood,Urine Negative (Negative); Color,Urine Light Yellow; Glucose,Urine (UA) Negative (Negative); Ketones,Urine Negative (Negative); Leukocyte Esterase,Urine Negative (Negative); Nitrite,Urine Negative (Negative); Protein,Urine Trace (Negative); Specific Gravity,Urine 1.024 (1.001-1.035)
--- NOTE | 2023-09-09 17:45 | ED ---
Abdominal Pain HPI - General Source: patient, RN notes reviewed Mode of arrival: ambulatory Limitations: no limitations <Mary Garza - Last Filed: 09/09/23 17:44> - General Source: patient, RN notes reviewed Limitations: no limitations <Leonid Moss - Last Filed: 09/09/23 20:25> - General Chief Complaint: Abdominal Pain Stated Complaint: back pain, hx kidney stones Time Seen by Provider: 09/09/23 17:44 - History of Present Illness Initial Comments: Quick [id number] female with history of kidney stones presenting with right flank pain worsening over the course of 1 week. Describes the pain as intermittent, colicky, and radiates to right side of abdomen. States right flank pain is worse with urination. Denies hematuria, nausea, vomiting, diarrhea, fever. Denies history of gastric bleeds, blood thinners, . (Mary Garza) Patient is a 32-year-old female present to the emergency department with concerns for right flank pain. Discomfort has been persistent for the past week . Patient has had some loose stools. Patient states discomfort is constant despite which she states earlier. Patient does have history of previous kidney stone with some similar symptoms. Patient denies any dysuria to me, also different from previously stated. (Leonid Moss) - Related Data Home Medications Medication Instructions Recorded Confirmed Melatonin 5 mg PO HS 04/19/22 08/10/22 Previous Rx's Medication Instructions Recorded Cephalexin [Keflex] 500 mg PO Q6HR 1 Days #20 cap 07/28/22 HYDROcodone/APAP 5-325MG [[place] 5] 1 - 2 each PO Q4H PRN #10 tab 07/28/22 Allergies Allergy/AdvReac Type Severity Reaction Status Date / Time No Known Allergies Allergy Verified 08/25/23 20:34 Review of Systems ROS Other: All systems not noted in ROS Statement are negative. <Mary Garza - Last Filed: 09/09/23 17:44> ROS Other: All systems not noted in ROS Statement are negative. Constitutional: Denies: fever, chills Eyes: Denies: eye pain ENT: Denies: ear pain Gastrointestinal: Reports: as per HPI, nausea. Denies: vomiting <Leonid Moss - Last Filed: 09/09/23 20:25> ROS Statement: Those systems with pertinent positive or pertinent negative responses have been documented in the HPI. Past Medical History Past Medical History: Asthma, Chest Pain / Angina, Skin Disorder Additional Past Medical History / Comment(s): detached retina at . Psoriasis, OVARIAN CYST, "heart problems". KIDNEY STONES, History of Any Multi-Drug Resistant Organisms: MRSA Date of last positivie culture/infection: 08/24/2012 MDRO Source:: right hip Past Surgical History: Section, Tubal Ligation Additional Past Surgical History / Comment(s): RIGHT OVARIAN CYST REMOVED, internal umbilical cord cyst removed, colonoscopies Past Anesthesia/Blood Transfusion Reactions: No Reported Reaction Past Psychological History: Anxiety, Bipolar, Depression Smoking Status: Former smoker Past Alcohol Use History: Occasional Past Drug Use History: Marijuana - Past Family History Mother Family Medical History: Cancer <Mary Garza - Last Filed: 09/09/23 17:44> General Exam Limitations: no limitations <Mary Garza - Last Filed: 09/09/23 17:44> Limitations: no limitations General appearance: alert, in no apparent distress Head exam: Present: normocephalic Eye exam: Present: normal appearance Neck exam: Present: normal inspection Respiratory exam: Present: normal lung sounds bilaterally Cardiovascular Exam: Present: regular rate, normal rhythm GI/Abdominal exam: Present: soft, tenderness (Mild tenderness right flank). Absent: distended Extremities exam: Present: normal inspection Back exam: Present: tenderness (Mild below the right CVA) Neurological exam: Present: alert Psychiatric exam: Present: normal affect, normal mood Skin exam: Present: normal color <Leonid Moss - Last Filed: 09/09/23 20:25> - General Exam Comments Initial Comments: Visual Physical Exam Vital signs reviewed General: Well-appearing, nontoxic, no acute distress. Head: Normocephalic, atraumatic Eyes: PERRLA, EOMI ENT: Airway patent Chest: Nonlabored breathing Skin: No visual rash, normal skin tone Neuro: Alert and oriented 3 Musculoskeletal: No gross abnormalities (Mary Garza) Course Vital Signs 09/09/23 09/09/23 09/09/23 15:39 18:42 19:58 Temperature 98 F 98.4 F Pulse Rate 90 72 69 Respiratory 16 18 18 Rate Blood Pressure 151/96 141/102 142/98 O2 Sat by Pulse 98 97 98 Oximetry Medical Decision Making <Mary Garza - Last Filed: 09/09/23 17:44> - Lab Data Result diagrams: 09/09/23 17:56 09/09/23 17:56 <Leonid Moss - Last Filed: 09/09/23 20:25> - Medical Decision Making I completed the quick note portion of this chart signed Mary Garza PA-C (Mary Garza) Was pt. sent in by a medical professional or institution (, PA, SUPERVISOR POULTRY HATCHERY, urgent care, hospital, or fdc...) When possible be specific @ -No Did you speak to anyone other than the patient for history (EMS, parent, family, police, friend...)? What history was obtained from this source @ -No Did you review nursing and triage notes (agree or disagree)? Why? @ -I reviewed and agree with nursing and triage notes Were old charts reviewed (outside hosp., previous admission, EMS record, old EKG, old radiological studies, urgent care reports/EKG's, fdc records)? Report findings @ -No old charts were reviewed Differential Diagnosis (chest pain, altered mental status, abdominal pain women, abdominal pain men, vaginal bleeding, weakness, fever, dyspnea, syncope, headache, dizziness, GI bleed, back pain, seizure, CVA, palpatations, mental health, musculoskeletal)? @ -Differential Abdominal Pain Women: Appendicitis, Cholecystitis, diverticulosis, ischemic bowel, pancreatitis, hepatitis, UTI, gastroenteritis, AAA, incarcerated hernia, bowel obstruction, constipation, inflammatory bowel, hepatitis, peptic ulcer disease, splenic infarction, perforated viscus, vulvitis, ovarian torsion, PID, kidney stone, placenta abruption, this is not meant to be an all-inclusive list EKG interpreted by me (3pts min.). @ -As above X-rays interpreted by me (1pt min.). @ -None done CT interpreted by me (1pt min.). @ -CT scan shows no acute process U/S interpreted by me (1pt. min.). @ -Ordered however patient left AMA What testing was considered but not performed or refused? (CT, X-rays, U/S, labs)? Why? @ -Ultrasound ordered however patient left What meds were considered but not given or refused? Why? @ -None Did you discuss the management of the patient with other professionals (professionals i.e. , PA, SUPERVISOR POULTRY HATCHERY, lab, RT, psych nurse, medical social worker, loan servicing representative, teacher, enforcement safety officer, pillowcase folder)? Give summary @ -No Was smoking cessation discussed for >3mins.? @ -No Was critical care preformed (if so, how long)? @ -No Were there social determinants of health that impacted care today? How? (Homelessness, low income, unemployed, alcoholism, drug addiction, transport ation, low edu. Level, literacy, decrease access to med. care, fpc, rehab)? @ -No Was there de-escalation of care discussed even if they declined (Discuss DNR or withdrawal of care, Hospice)? DNR status @ -No What co-morbidities impacted this encounter? (DM, HTN, Smoking, COPD, CAD, Cancer, CVA, ARF, Chemo, Hep., AIDS, mental health diagnosis, sleep apnea, morbid obesity)? @ -None Was patient admitted / discharged? Hospital course, mention meds given and route, prescriptions, significant lab abnormalities, going to OR and other pertinent info. @ -Patient presents with right flank pain. Patient given Toradol. CT scan shows no acute process. No acute abnormality with labs or urine. Ultrasound ordered however patient left. I was not informed of patient leaving and she did not wait to discuss this with me Undiagnosed new problem with uncertain prognosis? @ -No Drug Therapy requiring intensive monitoring for toxicity (Heparin, Nitro, Insulin, Cardizem)? @ -No Were any procedures done? @ -No Diagnosis/symptom? @ -flank pain Acute, or Chronic, or Acute on Chronic? @ -Acute Uncomplicated (without systemic symptoms) or Complicated (systemic symptoms)? @ -Default Side effects of treatment? @ -No Exacerbation, Progression, or Severe Exacerbation? @ -No Poses a threat to life or bodily function? How? (Chest pain, [place], [place], pneumonia, PE, COPD, DKA, ARF, appy, cholecystitis, CVA, Diverticulitis, Homicidal, Suicidal, threat to staff... and all critical care pts) @ -No (Leonid Moss) - Lab Data Lab Results 09/09/23 09/09/23 09/09/23 Range/Units 15:43 17:56 17:56 WBC 10.3 (3.8-10.6) k/uL RBC 4.47 (3.80-5.40) m/uL Hgb 13.1 (11.4-16.0) gm/dL Hct 39.1 (34.0-46.0) % MCV 87.4 (80.0-100.0) fL MCH 29.3 (25.0-35.0) pg MCHC 33.5 (31.0-37.0) g/dL RDW 13.5 (11.5-15.5) % Plt Count 283 (150-450) k/uL MPV 7.4 Neutrophils % 66 % Lymphocytes % 25 % Monocytes % 5 % Eosinophils % 2 % Basophils % 0 % Neutrophils # 6.8 (1.3-7.7) k/uL Lymphocytes # 2.6 (1.0-4.8) k/uL Monocytes # 0.5 (0-1.0) k/uL Eosinophils # 0.2 (0-0.7) k/uL Basophils # 0.0 (0-0.2) k/uL Sodium 137 (137-145) mmol/L Potassium 4.2 (3.5-5.1) mmol/L Chloride 105 (98-107) mmol/L Carbon Dioxide 25 (22-30) mmol/L Anion Gap 7 mmol/L BUN 17 (7-17) mg/dL Creatinine 0.59 (0.52-1.04) mg/dL Est GFR (CKD-EPI)AfAm >90 (>60 ml/min/1.73 sqM) Est GFR (CKD-EPI)NonAf >90 (>60 ml/min/1.73 sqM) Glucose 91 (74-99) mg/dL Plasma Lactic Acid Shad (0.7-2.0) mmol/L Calcium 8.6 (8.4-10.2) mg/dL Total Bilirubin 0.3 (0.2-1.3) mg/dL AST 24 (14-36) U/L ALT 25 (4-34) U/L Alkaline Phosphatase 79 (38-126) U/L Total Protein 6.9 (6.3-8.2) g/dL Albumin 4.1 (3.5-5.0) g/dL Urine Color Light Yellow Urine Appearance Clear (Clear) Urine pH 8.0 (5.0-8.0) Ur Specific [place] 1.024 (1.001-1.035) Urine Protein Trace H (Negative) Urine Glucose (UA) Negative (Negative) Urine Ketones Negative (Negative) Urine Blood Negative (Negative) Urine Nitrite Negative (Negative) Urine Bilirubin Negative (Negative) Urine Urobilinogen 4.0 (<2.0) mg/dL Ur Leukocyte Esterase Negative (Negative) 09/09/23 Range/Units 17:56 WBC (3.8-10.6) k/uL RBC (3.80-5.40) m/uL Hgb (11.4-16.0) gm/dL Hct (34.0-46.0) % MCV (80.0-100.0) fL MCH (25.0-35.0) pg MCHC (31.0-37.0) g/dL RDW (11.5-15.5) % Plt Count (150-450) k/uL MPV Neutrophils % % Lymphocytes % % Monocytes % % Eosinophils % % Basophils % % Neutrophils # (1.3-7.7) k/uL Lymphocytes # (1.0-4.8) k/uL Monocytes # (0-1.0) k/uL Eosinophils # (0-0.7) k/uL Basophils # (0-0.2) k/uL Sodium (137-145) mmol/L Potassium (3.5-5.1) mmol/L Chloride (98-107) mmol/L Carbon Dioxide (22-30) mmol/L Anion Gap mmol/L BUN (7-17) mg/dL Creatinine (0.52-1.04) mg/dL Est GFR (CKD-EPI)AfAm (>60 ml/min/1.73 sqM) Est GFR (CKD-EPI)NonAf (>60 ml/min/1.73 sqM) Glucose (74-99) mg/dL Plasma Lactic Acid Shad 1.1 (0.7-2.0) mmol/L Calcium (8.4-10.2) mg/dL Total Bilirubin (0.2-1.3) mg/dL AST (14-36) U/L ALT (4-34) U/L Alkaline Phosphatase (38-126) U/L Total Protein (6.3-8.2) g/dL Albumin (3.5-5.0) g/dL Urine Color Urine Appearance (Clear) Urine pH (5.0-8.0) Ur Specific [place] (1.001-1.035) Urine Protein (Negative) Urine Glucose (UA) (Negative) Urine Ketones (Negative) Urine Blood (Negative) Urine Nitrite (Negative) Urine Bilirubin (Negative) Urine Urobilinogen (<2.0) mg/dL Ur Leukocyte Esterase (Negative) Disposition <Mary Garza - Last Filed: 09/09/23 17:44> Is patient prescribed a controlled substance at d/c from ED?: No Time of Disposition: 20:15 <Leonid Moss - Last Filed: 09/09/23 20:25> Clinical Impression: Flank pain Disposition: LEFT AGAINST MEDICAL ADVICE Additional Instructions: Patient left without receiving instructions Referrals: Amada Roblero MD [Primary Care Provider] - 1-2 days
[2023-09-09] MEDS: KETOROLAC 15 MG/ML 1 ML VIAL IVP STA (17:54)
[2023-09-09 18:11] LABS: Basophils % (A) 0 %; Eosinophils # (A) 0.2 k/uL (0-0.7); Eosinophils % (A) 2 %; HCT 39.1 % (34.0-46.0); HGB 13.1 gm/dL (11.4-16.0); Lymphocytes # (A) 2.6 k/uL (1.0-4.8); Lymphocytes % (A) 25 %; MCH 29.3 pg (25.0-35.0); MCHC 33.5 g/dL (31.0-37.0); MCV 87.4 fL (80.0-100.0); Mean Platelet Volume 7.4; Monocytes # (A) 0.5 k/uL (0-1.0); Monocytes % (A) 5 %; Neutrophils # (A) 6.8 k/uL (1.3-7.7); Neutrophils % (A) 66 %; Platelet Count 283 k/uL (150-450); RBC 4.47 m/uL (3.80-5.40); RDW 13.5 % (11.5-15.5); WBC 10.3 k/uL (3.8-10.6)
[2023-09-09 18:24] LABS: ALT 25 U/L (4-34); AST 24 U/L (14-36); African American GFR (CKD) >90 (>60 ml/min/1.73 sqM); Albumin 4.1 g/dL (3.5-5.0); Alkaline Phosphatase 79 U/L (38-126); Anion Gap 7 mmol/L; Blood Urea Nitrogen 17 mg/dL (7-17); Calcium 8.6 mg/dL (8.4-10.2); Carbon Dioxide 25 mmol/L (22-30); Chloride 105 mmol/L (98-107); Glucose 91 mg/dL (74-99); Non-African American GFR(CKD) >90 (>60 ml/min/1.73 sqM); Potassium 4.2 mmol/L (3.5-5.1); Sodium 137 mmol/L (137-145); Total Bilirubin 0.3 mg/dL (0.2-1.3); Total Protein 6.9 g/dL (6.3-8.2)
--- NOTE | 2023-09-09 18:27 | CT ---
EXAMINATION TYPE: CT abdomen pelvis wo con CT DLP: 1116 mGycm, Automated exposure control for dose reduction was used. DATE OF EXAM: 09/09/2023 6:16 PM COMPARISON: CT abdomen pelvis most recent from 11/26/2020 CLINICAL INDICATION:Female, 32 years old with history of flank pain; right flank pain TECHNIQUE: Axial CT of the abdomen and pelvis. Sagittal and coronal reformats were created on a [employer] workstation. Contrast used: (none if empty) Oral contrast used: without Oral Contrast (none if empty) FINDINGS: LOWER CHEST: Unremarkable ABDOMEN LIVER: Unremarkable GALLBLADDER AND BILE DUCTS: Unremarkable. PANCREAS: Unremarkable. SPLEEN: Unremarkable. ADRENAL GLANDS: Unremarkable. KIDNEYS AND URETERS: No evidence of hydronephrosis or renal calculus. The ureters are unremarkable. PELVIS BLADDER: Unremarkable REPRODUCTIVE: Bilateral tubal ligation clips identified. ABDOMEN & PELVIS STOMACH AND BOWEL: Stomach and duodenum are unremarkable. No evidence of bowel obstruction. PERITONEUM/RETROPERITONEUM: No evidence of pneumoperitoneum or free fluid. VASCULATURE: No evidence of aortic aneurysm. MUSCULOSKELETAL: No acute osseous abnormalities LYMPH NODES: No gross evidence for lymphadenopathy. SOFT TISSUE/ABDOMINAL WALL: Unremarkable IMPRESSION: No acute process.
[2023-09-09 19:08] VITALS: RESP 18
[2023-09-09] MEDS ORDERED: HYDROmorphone 1 MG/ML 1 ML SYRINGE IVP STA (19:36)
[2023-09-09 20:25] VITALS: BP 142/98; PULSE 69; TEMP 98.4
== END 2023-09-09 20:00 | disposition left against medical advice (07) ==
LOC: EC 15:16
DX: R10.9 Unspecified abdominal pain (principal); F12.90 Cannabis use, unspecified, uncomplicated; Z87.891 Personal history of nicotine dependence; Z53.29 Procedure and treatment not carried out because of patient's decision for other reasons
CPT/HCPCS: 36415; 80053; 83605; 85025; 81003; 74176; 99284; 96374; J1885

== ENCOUNTER 2024-08-07 20:29 | Emergency (ER) | payer MEDICARE, OTHER ==
--- NOTE | 2024-08-07 21:14 | XR ---
EXAMINATION TYPE: XR chest 2V DATE OF EXAM: 08/07/2024 9:08 PM COMPARISON: Chest radiographs from 06/15/2022 TECHNIQUE: XR chest 2V Frontal and lateral views of the chest. CLINICAL INDICATION:Female, 33 years old with history of URI; FINDINGS: Lungs/Pleura: There is no evidence of pleural effusion, focal consolidation, or pneumothorax. Pulmonary vascularity: Unremarkable. Heart/mediastinum: Cardiomediastinal silhouette is unremarkable. Musculoskeletal: No acute osseous pathology. IMPRESSION: No acute cardiopulmonary disease/process. [facility], , 08/07/2024 9:12 PM
--- NOTE | 2024-08-07 21:36 | ED ---
URI HPI - General Chief Complaint: Upper Respiratory Infection Stated Complaint: Difficulty Breathing, Congestion Time Seen by Provider: 08/07/24 20:44 Source: patient, RN notes reviewed Mode of arrival: ambulatory Limitations: no limitations - History of Present Illness Initial Comments: This is a 33-year-old female presenting with sick symptoms x 4 days. Patient endorses hot/cold flashes, fatigue, dry cough, congestion with drainage, nausea, diarrhea. Endorses frequent trips/time spent in the hospital recently. Endorses use of Tylenol, NyQuil and Zofran with some relief. Patient states she would like to know what she is sick with an is not interested in treatments at this time. Denies fever, chest pain, dyspnea, abdominal pain, vomiting, hematochezia, melena, dizziness. MD Complaint: cough, rhinorrhea, nasal congestion Onset/Timin -: days(s) Worsens With: deep breaths Associated Symptoms: nausea, diarrhea Treatments Prior to Arrival: Acetaminophen, "cold medicine", other (Zofran) - Related Data Home Medications Medication Instructions Recorded Confirmed Melatonin 5 mg PO HS 04/19/22 08/10/22 Previous Rx's Medication Instructions Recorded Cephalexin [Keflex] 500 mg PO Q6HR 1 Days #20 cap 07/28/22 HYDROcodone/APAP 5-325MG [[place] 5] 1 - 2 each PO Q4H PRN #10 tab 07/28/22 Allergies Allergy/AdvReac Type Severity Reaction Status Date / Time No Known Allergies Allergy Verified 06/17/24 16:32 Review of Systems ROS Statement: Those systems with pertinent positive or pertinent negative responses have been documented in the HPI. ROS Other: All systems not noted in ROS Statement are negative. Past Medical History Past Medical History: Asthma, Chest Pain / Angina, Skin Disorder Additional Past Medical History / Comment(s): detached retina at . Psoriasis, OVARIAN CYST, "heart problems". KIDNEY STONES, History of Any Multi-Drug Resistant Organisms: MRSA Date of last positivie culture/infection: 08/24/2012 MDRO Source:: right hip Past Surgical History: Section, Tubal Ligation Additional Past Surgical History / Comment(s): RIGHT OVARIAN CYST REMOVED, internal umbilical cord cyst removed, colonoscopies Past Anesthesia/Blood Transfusion Reactions: No Reported Reaction Past Psychological History: Anxiety, Bipolar, Depression Smoking Status: Former smoker, Vaper Past Alcohol Use History: Occasional Past Drug Use History: Marijuana - Past Family History Mother Family Medical History: Cancer General Exam Limitations: no limitations General appearance: alert, in no apparent distress Head exam: Present: atraumatic, normocephalic, normal inspection Eye exam: Present: normal appearance, PERRL, EOMI. Absent: scleral icterus, conjunctival injection, periorbital swelling ENT exam: Present: normal exam, normal oropharynx (Tonsils 2+ without erythema or exudate), mucous membranes moist, TM's normal bilaterally Neck exam: Present: normal inspection. Absent: tenderness, meningismus, lymphadenopathy Respiratory exam: Present: normal lung sounds bilaterally, chest wall tenderness (Positive bilateral posterior axillary rib tenderness without subcutaneous emphysema, crepitus or deformity). Absent: respiratory distress, wheezes, rales, rhonchi, stridor, accessory muscle use, decreased breath sounds, prolonged expiratory Cardiovascular Exam: Present: regular rate, normal rhythm, normal heart sounds. Absent: systolic murmur, diastolic murmur, rubs, gallop, clicks GI/Abdominal exam: Present: soft, normal bowel sounds. Absent: distended, tenderness, guarding, rebound, rigid Extremities exam: Present: normal inspection, full ROM, normal capillary refill. Absent: tenderness, pedal edema, joint swelling, calf tenderness Back exam: Present: normal inspection Neurological exam: Present: alert, oriented X3, CN II-XII intact Psychiatric exam: Present: normal affect, normal mood Skin exam: Present: warm, dry, intact, normal color. Absent: rash Course Vital Signs 08/07/24 08/07/24 20:34 22:40 Temperature 98.0 F 97.7 F Pulse Rate 100 97 Respiratory 20 19 Rate Blood Pressure 125/76 122/73 O2 Sat by Pulse 98 98 Oximetry Medical Decision Making - Medical Decision Making Was pt. sent in by a medical professional or institution (, PA, QUALIFICATION ENGINEER, urgent care, hospital, or fci...) When possible be specific @ -No Did you speak to anyone other than the patient for history (EMS, parent, family, police, friend...)? What history was obtained from this source @ -No Did you review nursing and triage notes (agree or disagree)? Why? @ -I reviewed and agree with nursing and triage notes Were old charts reviewed (outside hosp., previous admission, EMS record, old EKG, old radiological studies, urgent care reports/EKG's, fci records)? Report findings @ -No old charts were reviewed Differential Diagnosis (chest pain, altered mental status, abdominal pain women, abdominal pain men, vaginal bleeding, weakness, fever, dyspnea, syncope, headache, dizziness, GI bleed, back pain, seizure, CVA, palpatations, mental health, musculoskeletal)? @ -Differential Fever: Pneumonia, viral URI, endocarditis, myocarditis, pericarditis, otitis, sinusitis, peritonsillar Abscess, retropharyngeal Abscess, epiglottitis, peritonitis, appendicitis, Aruna cystitis, diverticulitis, hepatitis, colitis, UTI, PID, TOA, pyelonephritis, prostatitis, epididymitis, meningitis, encephalitis, pulmonary embolism, CVA, thyroid storm, pancreatitis, adrenal crisis, cavernous sinus thrombosis, this is not meant to be an all-inclusive list. EKG interpreted by me (3pts min.). @ -Not done X-rays interpreted by me (1pt min.). @ -CXR shows no acute cardiopulmonary process CT interpreted by me (1pt min.). @ -None done U/S interpreted by me (1pt. min.). @ -None done What testing was considered but not performed or refused? (CT, X-rays, U/S, labs)? Why? @ -None What meds were considered but not given or refused? Why? @ -Patient declined IM Solu-Medrol, Toradol for pain. Declined Flonase nasal spray, p.o. Motrin, Zofran. Patient states she is mostly interested in what is causing her symptoms rather than treating symptoms. Did you discuss the management of the patient with other professionals (professionals i.e. , PA, QUALIFICATION ENGINEER, lab, RT, psych nurse, social service manager, water resource engineering specialist, teacher, records officer, social work case manager)? Give summary @ -No Was smoking cessation discussed for >3mins.? @ -No Was critical care preformed (if so, how long)? @ -No Were there social determinants of health that impacted care today? How? (Homelessness, low income, unemployed, alcoholism, drug addiction, transportation, low edu. Level, literacy, decrease access to med. care, assisted, rehab)? @ -No Was there de-escalation of care discussed even if they declined (Discuss DNR or withdrawal of care, Hospice)? DNR status @ -No What co-morbidities impacted this encounter? (DM, HTN, Smoking, COPD, CAD, Cancer, CVA, ARF, Chemo, Hep., AIDS, mental health diagnosis, sleep apnea, morbid obesity)? @ -None Was patient admitted / discharged? Hospital course, mention meds given and route, prescriptions, significant lab abnormalities, going to OR and other pertinent info. @ -Cepheid test negative. CXR shows no acute cardiopulmonary process. Patient declines all supportive medications offered to provide symptom relief. Advised of supportive care and increase rest/hydration and follow-up with PCP in the next 24-[address] hours[address] Discussed patient with Dr. Garcia. Undiagnosed new problem with uncertain prognosis? @ -No Drug Therapy requiring intensive monitoring for toxicity (Heparin, Nitro, Insulin, Cardizem)? @ -No Were any procedures done? @ -No Diagnosis/symptom? @ -URI, bronchitis Acute, or Chronic, or Acute on Chronic? @ -Acute Uncomplicated (without systemic symptoms) or Complicated (systemic symptoms)? @ -Complicated Side effects of treatment? @ -No Exacerbation, Progression, or Severe Exacerbation? @ -No Poses a threat to life or bodily function? How? (Chest pain, [place], [place], pneumonia, PE, COPD, DKA, ARF, appy, cholecystitis, CVA, Diverticulitis, Homicidal, Suicidal, threat to staff... and all critical care pts) @ -No - Lab Data Lab Results 08/07/24 Range/Units 20:39 Influenza Type A (PCR) Not Detected (Not Detectd) Influenza Type B (PCR) Not Detected (Not Detectd) RSV (PCR) Not Detected (Not Detectd) SARS-CoV-2 (PCR) Not Detected (Not Detectd) Disposition Clinical Impression: Acute upper respiratory infection, Bronchitis Disposition: HOME SELF-CARE Condition: Good Instructions (If sedation given, give patient instructions): Upper Respiratory Infection (ED), Acute Bronchitis (ED) Additional Instructions: Nasal saline irrigation, Flonase nasal spray twice daily and warm shower/humidifier for nasal congestion. Honey and warm fluids for cough and lalito tea/nikia for nausea. Bread, rice, applesauce, tea, toast and rehydration with Gatorade/Pedialyte for diarrhea. Follow-up with PCP for any ongoing or worsening symptoms. Is patient prescribed a controlled substance at d/c from ED?: No Referrals: Amada Roblero MD [Primary Care Provider] - 1-2 days Time of Disposition: 21:59
[2024-08-07 21:56] LABS: Influenza A Not Detected (Not Detectd); Influenza B Not Detected (Not Detectd); RSV Not Detected (Not Detectd)
[2024-08-07 22:41] VITALS: BP 122/73; PULSE 97; RESP 19; TEMP 97.7
== END 2024-08-07 22:44 | disposition home or self-care (01) ==
LOC: EC 20:29
DX: J06.9 Acute upper respiratory infection, unspecified (principal); J40 Bronchitis, not specified as acute or chronic; F17.290 Nicotine dependence, other tobacco product, uncomplicated
CPT/HCPCS: 71046; 87636; 99285

== ENCOUNTER 2024-10-16 10:08 | Emergency (ER) | payer MEDICARE, OTHER ==
[2024-10-16 10:16] VITALS: RESP 18; TEMP 97.6
[2024-10-16 11:03] VITALS: BP 114/62; PULSE 65
[2024-10-16] MEDS: SODIUM CHLORIDE 0.9% 1,000 ML IV STA (11:12)
--- NOTE | 2024-10-16 11:18 | ED ---
Dizziness HPI - General Chief Complaint: Dizziness Stated Complaint: Syncope Time Seen by Provider: 10/16/24 10:10 Source: patient Mode of arrival: ambulatory Limitations: no limitations - History of Present Illness Initial Comments: The patient is a 33-year-old female is otherwise healthy presents emergency room with complaints of intermittent dizziness since yesterday. Patient states that she has had multiple episodes where she has become lightheaded, clammy and sweaty since yesterday. Episodes are worse when she is standing. Patient denies any falls or syncope but states she feels as though she could pass out. She denies any chest pain, shortness of breath, abdominal pain, neurological symptoms such as paralysis, weakness vision changes. She is currently on her menstrual cycle. Denies chance of . Patient does admit to drinking alcohol last night at a concert. She denies any drugs. She does use a vape pen. Patient denies any dark or tarry stools. Denies any known hematochezia. MD Complaint: dizziness -: days(s) (1) Timing: intermittent Description: lightheadedness, nausea Severity: mild Improves With: rest Worsens With: position - Related Data Home Medications Medication Instructions Recorded Confirmed Melatonin 5 mg PO HS 04/19/22 08/10/22 Previous Rx's Medication Instructions Recorded Cephalexin [Keflex] 500 mg PO Q6HR 1 Days #20 cap 07/28/22 HYDROcodone/APAP 5-325MG [[place] 5] 1 - 2 each PO Q4H PRN #10 tab 07/28/22 Allergies Allergy/AdvReac Type Severity Reaction Status Date / Time No Known Allergies Allergy Verified 10/16/24 10:16 Review of Systems ROS Statement: Those systems with pertinent positive or pertinent negative responses have been documented in the HPI. ROS Other: All systems not noted in ROS Statement are negative. Constitutional: Reports: as per HPI Eyes: Reports: as per HPI Respiratory: Denies: cough, dyspnea, wheezes, hemoptysis Cardiovascular: Denies: chest pain, palpitations, dyspnea on exertion, orthopnea, edema, syncope, paroxysmal nocturnal dyspnea Endocrine: Denies: fatigue, heat or cold intolerance, polydipsia, polyuria Genitourinary: Denies: urgency, dysuria, frequency, hematuria Musculoskeletal: Reports: as per HPI Neurological: Denies: headache, weakness, numbness, paresthesias, confusion, abnormal gait, vertigo Psychiatric: Reports: as per HPI Past Medical History Past Medical History: Asthma, Chest Pain / Angina, Skin Disorder Additional Past Medical History / Comment(s): detached retina at . Psoriasis, OVARIAN CYST, "heart problems". KIDNEY STONES, History of Any Multi-Drug Resistant Organisms: MRSA Date of last positivie culture/infection: 08/24/2012 MDRO Source:: right hip Past Surgical History: Section, Tubal Ligation Additional Past Surgical History / Comment(s): RIGHT OVARIAN CYST REMOVED, internal umbilical cord cyst removed, colonoscopies Past Anesthesia/Blood Transfusion Reactions: No Reported Reaction Past Psychological History: Anxiety, Bipolar, Depression Smoking Status: Former smoker, Vaper Past Alcohol Use History: Occasional Past Drug Use History: Marijuana - Past Family History Mother Family Medical History: Cancer General Exam Limitations: no limitations General appearance: alert, in no apparent distress Head exam: Present: atraumatic, normal inspection Eye exam: Present: normal appearance, PERRL, EOMI. Absent: nystagmus ENT exam: Present: normal exam Neck exam: Present: normal inspection, full ROM Respiratory exam: Present: normal lung sounds bilaterally Cardiovascular Exam: Present: regular rate, normal rhythm GI/Abdominal exam: Present: soft. Absent: tenderness Extremities exam: Present: normal inspection, full ROM Back exam: Present: full ROM Neurological exam: Present: alert, altered, oriented X3, CN II-XII intact, normal gait, motor sensory deficit Psychiatric exam: Present: normal affect, normal mood Skin exam: Present: warm, dry, intact Course Vital Signs 10/16/24 10/16/24 10:13 11:01 Temperature 97.6 F Pulse Rate 86 Pulse Rate [ 74 Sitting Pulse Oximetery] Pulse Rate [ 90 Standing Pulse Oximetery] Pulse Rate [ 65 Supine Pulse Oximetery] Respiratory 18 Rate Blood Pressure 128/84 Blood Pressure 106/70 [Left Arm Sitting] Blood Pressure 111/88 [Left Arm Standing] Blood Pressure 114/62 [Left Arm Supine] - Reevaluation(s) Reevaluation #1: 10/16/24 1225 Patient is well-appearing in emergency room. Did receive IV fluids. He is able to ambulate without syncope and with a steady gait. I discussed lab results with the patient which were unremarkable. EKG is negative and shows sinus rhythm no acute changes. I discussed hydration and rest with the patient. Discussed following up with her PCP and signs return to the emergency room. She understands agrees to treatment discharge plan. Discussed symptoms workup and disposition with attending ED physician Dr. Mckee today. EKG Findings - EKG Comments: EKG Findings:: KG shows sinus rhythm at a rate of [address] segment elevation or T wave changes, normal IA intervals. Medical Decision Making - Medical Decision Making Was pt. sent in by a medical professional or institution (, [facility], SMALL ANIMAL CARETAKER, urgent care, hospital, or correction...) When possible be specific @ -Patient states she was sent in by her PCP I did not speak with them Did you speak to anyone other than the patient for history (EMS, parent, family, police, friend...)? What history was obtained from this source @ -[No] Did you review nursing and triage notes (agree or disagree)? Why? @ -[I reviewed and agree with nursing and triage notes] yes notes were reviewed Were old charts reviewed (outside hosp., previous admission, EMS record, old EKG, old radiological studies, urgent care reports/EKG's, correction records)? Report findings @ -Yes previous hospital records including emergency room visits, numerous were evaluated and reviewed Differential Diagnosis (chest pain, altered mental status, abdominal pain women, abdominal pain men, vaginal bleeding, weakness, fever, dyspnea, syncope, headache, dizziness, GI bleed, back pain, seizure, CVA, palpatations, mental health, musculoskeletal)? @ -Near syncope, dehydration, hypOglycemia, alcohol intoxication, EKG interpreted by me (3pts min.). @ -EKG shows sinus rhythm at a rate of [address] segment elevation no acute changes no ectopy, normal QT intervals X-rays interpreted by me (1pt min.). @ -[None done] CT interpreted by me (1pt min.). @ -[None done] U/S interpreted by me (1pt. min.). @ -[None done] What testing was considered but not performed or refused? (CT, X-rays, U/S, labs)? Why? @ -[None] What meds were considered but not given or refused? Why? @ -[None] Did you discuss the management of the patient with other professionals (professionals i.e. Dr., PA, SMALL ANIMAL CARETAKER, lab, RT, psych nurse, hospice social worker, trim mechanic, teacher, radiological defense officer, case management social worker)? Give summary @ -Discussed patient's symptoms workup and disposition with attending ED physician Dr. Mckee today Was smoking cessation discussed for >3mins.? @ -[No] Was critical care preformed (if so, how long)? @ -[No] Were there social determinants of health that impacted care today? How? (Homel essness, low income, unemployed, alcoholism, drug addiction, transportation, low edu. Level, literacy, decrease access to med. care, [facility] [facility], rehab)? @ -Patient admits to drinking alcohol last night and going into a concert. Patient was given IV fluids in the emergency room. Negative alcohol level today Was there de-escalation of care discussed even if they declined (Discuss DNR or withdrawal of care, Hospice)? DNR status @ -[No] What co-morbidities impacted this encounter? (DM, HTN, Smoking, COPD, CAD, Cancer, CVA, ARF, Chemo, Hep., AIDS, mental health diagnosis, sleep apnea, morbid obesity)? @ -[None] Was patient admitted / discharged? Hospital course, mention meds given and route, prescriptions, significant lab abnormalities, going to OR and other pertinent info. @ -Patient is stable and may return home. Will be discharged from the emergency room at this time Undiagnosed new problem with uncertain prognosis? @ -[No] Drug Therapy requiring intensive monitoring for toxicity (Heparin, Nitro, Insulin, Cardizem)? @ -[No] Were any procedures done? @ -[No] Diagnosis/symptom? @ -Dehydration, near syncope Acute, or Chronic, or Acute on Chronic? @ -Acute Uncomplicated (without systemic symptoms) or Complicated (systemic symptoms)? @ -[default] Side effects of treatment? @ -[No] Exacerbation, Progression, or Severe Exacerbation? @ -[No] Poses a threat to life or bodily function? How? (Chest pain, [place], [place], pneumonia, PE, COPD, DKA, ARF, appy, cholecystitis, CVA, Diverticulitis, Homicidal, Suicidal, threat to staff... and all critical care pts) @ -[No] - Lab Data Result diagrams: 10/16/24 11:02 10/16/24 11:02 Lab Results 10/16/24 10/16/24 10/16/24 Range/Units 11:02 11:02 11:02 WBC 10.87 H (4.50-10.00) 10*3/uL RBC 4.63 (4.10-5.20) 10*6/uL Hgb 13.4 (12.0-15.0) g/dL Hct 39.5 (37.2-46.3) % MCV 85.3 (80.0-97.0) fL MCH 28.9 (27.0-32.0) pg MCHC 33.9 (32.0-37.0) g/dL Plt Count 264 (140-440) 10*3/uL MPV 9.3 L (9.5-12.2) fL Immature Gran % (Auto) 0.5 % Neutrophils % 63.8 % Lymphocytes % 28.2 % Monocytes % 5.3 % Eosinophils % 1.7 % Basophils % 0.5 % Immature Gran # 0.05 H (0.00-0.04) 10*3/uL Neutrophils # 6.95 (1.80-7.70) 10*3/uL Lymphocytes # 3.06 (0.90-5.00) 10*3/uL Monocytes # 0.58 (0.20-1.00) 10*3/uL Eosinophils # 0.18 (0.04-0.35) 10*3/uL Basophils # 0.05 (0.00-0.10) 10*3/uL Sodium 137 (137-145) mmol/L Potassium 4.1 (3.5-5.1) mmol/L Chloride 101 (98-107) mmol/L Carbon Dioxide 27 (22-30) mmol/L Anion Gap 9 mmol/L BUN 14 (7-17) mg/dL Creatinine 0.65 (0.52-1.04) mg/dL Est GFR (CKD-EPI)AfAm >90 (>60 ml/min/1.73 sqM) Est GFR (CKD-EPI)NonAf >90 (>60 ml/min/1.73 sqM) Glucose 95 (74-99) mg/dL Calcium 9.4 (8.4-10.2) mg/dL Total Bilirubin 0.5 (0.2-1.3) mg/dL AST 16 (14-36) U/L ALT 16 (4-34) U/L Alkaline Phosphatase 62 (38-126) U/L Troponin I (0.000-0.034) ng/mL Total Protein 6.6 (6.3-8.2) g/dL Albumin 4.1 (3.5-5.0) g/dL HCG, Quant <2.4 mIU/mL Urine Color Yellow Urine Appearance Clear (Clear) Urine pH 6.5 (5.0-8.0) Ur Specific [place] 1.027 (1.001-1.035) Urine Protein Negative (Negative) Urine Glucose (UA) Negative (Negative) Urine Ketones Negative (Negative) Urine Blood Negative (Negative) Urine Nitrite Negative (Negative) Urine Bilirubin Negative (Negative) Urine Urobilinogen <2.0 (<2.0) mg/dL Ur Leukocyte Esterase Negative (Negative) Serum Alcohol <10 mg/dL 10/16/24 Range/Units 11:02 WBC (4.50-10.00) 10*3/uL RBC (4.10-5.20) 10*6/uL Hgb (12.0-15.0) g/dL Hct (37.2-46.3) % MCV (80.0-97.0) fL MCH (27.0-32.0) pg MCHC (32.0-37.0) g/dL Plt Count (140-440) 10*3/uL MPV (9.5-12.2) fL Immature Gran % (Auto) % Neutrophils % % Lymphocytes % % Monocytes % % Eosinophils % % Basophils % % Immature Gran # (0.00-0.04) 10*3/uL Neutrophils # (1.80-7.70) 10*3/uL Lymphocytes # (0.90-5.00) 10*3/uL Monocytes # (0.20-1.00) 10*3/uL Eosinophils # (0.04-0.35) 10*3/uL Basophils # (0.00-0.10) 10*3/uL Sodium (137-145) mmol/L Potassium (3.5-5.1) mmol/L Chloride (98-107) mmol/L Carbon Dioxide (22-30) mmol/L Anion Gap mmol/L BUN (7-17) mg/dL Creatinine (0.52-1.04) mg/dL Est GFR (CKD-EPI)AfAm (>60 ml/min/1.73 sqM) Est GFR (CKD-EPI)NonAf (>60 ml/min/1.73 sqM) Glucose (74-99) mg/dL Calcium (8.4-10.2) mg/dL Total Bilirubin (0.2-1.3) mg/dL AST (14-36) U/L ALT (4-34) U/L Alkaline Phosphatase (38-126) U/L Troponin I <0.012 (0.000-0.034) ng/mL Total Protein (6.3-8.2) g/dL Albumin (3.5-5.0) g/dL HCG, Quant mIU/mL Urine Color Urine Appearance (Clear) Urine pH (5.0-8.0) Ur Specific [place] (1.001-1.035) Urine Protein (Negative) Urine Glucose (UA) (Negative) Urine Ketones (Negative) Urine Blood (Negative) Urine Nitrite (Negative) Urine Bilirubin (Negative) Urine Urobilinogen (<2.0) mg/dL Ur Leukocyte Esterase (Negative) Serum Alcohol mg/dL - EKG Data -: EKG Interpreted by Me EKG shows normal: sinus rhythm Rate: normal Disposition Clinical Impression: Near syncope, Dizziness, Dehydration Disposition: HOME SELF-CARE Condition: Good Instructions (If sedation given, give patient instructions): Dizziness (ED) Is patient prescribed a controlled substance at d/c from ED?: No When asked, does pt state using other controlled substances?: No If prescribed controlled substance>3 days was MAPS reviewed?: No If opioid is for acute pain is fill amount 7 days or less?: No If Rx opioid, was Start Talking consent form obtained?: No Referrals: Amada Roblero MD [Primary Care Provider] - 1-2 days Time of Disposition: 12:44
[2024-10-16 11:28] LABS: Basophils # (A) 0.05 10*3/uL (0.00-0.10); Basophils % (A) 0.5 %; Eosinophils # (A) 0.18 10*3/uL (0.04-0.35); Eosinophils % (A) 1.7 %; HCT 39.5 % (37.2-46.3); HGB 13.4 g/dL (12.0-15.0); Lymphocytes # (A) 3.06 10*3/uL (0.90-5.00); Lymphocytes % (A) 28.2 %; MCH 28.9 pg (27.0-32.0); MCHC 33.9 g/dL (32.0-37.0); MCV 85.3 fL (80.0-97.0); Mean Platelet Volume 9.3 fL (9.5-12.2); Monocytes # (A) 0.58 10*3/uL (0.20-1.00); Monocytes % (A) 5.3 %; Neutrophils # (A) 6.95 10*3/uL (1.80-7.70); Neutrophils % (A) 63.8 %; Platelet Count 264 10*3/uL (140-440); RBC 4.63 10*6/uL (4.10-5.20); RDW 13.1 % (11.5-14.5); WBC 10.87 10*3/uL (4.50-10.00)
[2024-10-16 11:36] LABS: Appearance,Urine Clear (Clear); Bilirubin,Urine Negative (Negative); Blood,Urine Negative (Negative); Color,Urine Yellow; Glucose,Urine (UA) Negative (Negative); Ketones,Urine Negative (Negative); Leukocyte Esterase,Urine Negative (Negative); Nitrite,Urine Negative (Negative); PH, Urine 6.5 (5.0-8.0); Protein,Urine Negative (Negative); Specific Gravity,Urine 1.027 (1.001-1.035); Urobilinogen,Urine <2.0 mg/dL (<2.0)
[2024-10-16 11:39] LABS: ALT 16 U/L (4-34); AST 16 U/L (14-36); African American GFR (CKD) >90 (>60 ml/min/1.73 sqM); Albumin 4.1 g/dL (3.5-5.0); Alcohol <10 mg/dL; Alkaline Phosphatase 62 U/L (38-126); Anion Gap 9 mmol/L; Blood Urea Nitrogen 14 mg/dL (7-17); Calcium 9.4 mg/dL (8.4-10.2); Carbon Dioxide 27 mmol/L (22-30); Chloride 101 mmol/L (98-107); Glucose 95 mg/dL (74-99); Non-African American GFR(CKD) >90 (>60 ml/min/1.73 sqM); Potassium 4.1 mmol/L (3.5-5.1); Sodium 137 mmol/L (137-145); Total Bilirubin 0.5 mg/dL (0.2-1.3); Total Protein 6.6 g/dL (6.3-8.2)
[2024-10-16 11:55] LABS: HCG,Quantitative Serum <2.4 mIU/mL
== END 2024-10-16 12:59 | disposition home or self-care (01) ==
LOC: EC 10:08
DX: R42 Dizziness and giddiness (principal); R55 Syncope and collapse; E86.0 Dehydration; F17.290 Nicotine dependence, other tobacco product, uncomplicated
CPT/HCPCS: 36415; 93005; 80053; 84484; 85025; 81003; 84702; 99284; 96360; G0480; 80320

== ENCOUNTER 2024-10-20 00:35 | Emergency (ER) | payer MEDICARE, OTHER ==
[2024-10-20 01:04] VITALS: TEMP 98.2
--- NOTE | 2024-10-20 01:37 | ED ---
General Adult HPI - General Chief complaint: Headache Stated complaint: L Side Facial Numbness, Nausea, Dizziness Time Seen by Provider: 10/20/24 00:57 Source: patient, RN notes reviewed, old records reviewed Mode of arrival: ambulatory Limitations: no limitations - History of Present Illness Initial comments: 33-year-old female presenting with complaints of nausea, headache, and left- sided facial heaviness. Reports she went to a [employer] this afternoon around 3 PM and after eating a hotdog and some Pasta salad there she started having symptoms. States she called her PCPs office on-call physician and explained her symptoms including the newly developed "white spots in her peripheral vision "in the PCP advised that she come to the ER for further evaluation. Reports the heaviness in the left side of the face extends down to the left side of the neck and up into the left temporal part of the skull. Reports her only other symptom is some tingling in her lips. Patient denies any other symptoms at this time. - Related Data Home Medications Medication Instructions Recorded Confirmed Melatonin 5 mg PO HS 04/19/22 08/10/22 Previous Rx's Medication Instructions Recorded Cephalexin [Keflex] 500 mg PO Q6HR 1 Days #20 cap 07/28/22 HYDROcodone/APAP 5-325MG [[place] 5] 1 - 2 each PO Q4H PRN #10 tab 07/28/22 Allergies Allergy/AdvReac Type Severity Reaction Status Date / Time No Known Allergies Allergy Verified 10/20/24 00:59 Review of Systems ROS Statement: Those systems with pertinent positive or pertinent negative responses have been documented in the HPI. ROS Other: All systems not noted in ROS Statement are negative. Past Medical History Past Medical History: Asthma, Chest Pain / Angina, Skin Disorder Additional Past Medical History / Comment(s): detached retina at . Psoriasis, OVARIAN CYST, "heart problems". KIDNEY STONES, History of Any Multi-Drug Resistant Organisms: MRSA Date of last positivie culture/infection: 08/24/2012 MDRO Source:: right hip Past Surgical History: Section, Tubal Ligation Additional Past Surgical History / Comment(s): RIGHT OVARIAN CYST REMOVED, internal umbilical cord cyst removed, colonoscopies Past Anesthesia/Blood Transfusion Reactions: No Reported Reaction Past Psychological History: Anxiety, Bipolar, Depression Smoking Status: Former smoker, Vaper Past Alcohol Use History: Occasional Past Drug Use History: Marijuana - Past Family History Mother Family Medical History: Cancer General Exam - General Exam Comments Initial Comments: GENERAL: In no apparent distress at the time of examination. Pleasant and cooperative. Morbidly obese. HEENT: Head is atraumatic, normocephalic. Pupils are equal, round, and reactive to light. Sclerae anicteric. Conjunctivae are clear. Mucus membranes of the mouth are moist. Neck is supple. RESPIRATORY: Clear to auscultation. No wheezes, rales, or rhonchi. No use of accessory muscles. Patient maintaining oxygen saturation greater than 92%. No chest wall tenderness is noted on palpation or with deep breathing. CARDIOVASCULAR: Regular rate and rhythm. S1 and S2 noted. No systolic or diastolic murmur auscultated. No JVD noted. No S3 or S4 noted. GASTROINTESTINAL: No distention noted. Abdomen soft and round. Normal active bowel sounds auscultated x 4 quadrants. No pain or tenderness noted upon palpation. INTEGUMENTARY: No cyanosis. No jaundice. No rashes noted. No cellulitis noted. EXTREMITIES: 2+ peripheral pulses. No evidence of peripheral edema. No calf tenderness noted. NEUROLOGIC: Cranial nerves II-XII intact. PSYCHIATRIC: Awake, alert, and oriented X 3. Appropriate affect. Intact judgement and insight. Limitations: no limitations Course Vital Signs 10/20/24 00:59 Temperature 98.2 F Pulse Rate 87 Respiratory 16 Rate Blood Pressure 121/84 O2 Sat by Pulse 95 Oximetry Medical Decision Making - Medical Decision Making Was pt. sent in by a medical professional or institution (, [facility], TUBING MACHINE TENDER, urgent care, hospital, or fci...) When possible be specific @ -Patient was advised by her PCP who she talked to before to come to the emergency room. Did you speak to anyone other than the patient for history (EMS, parent, family, police, friend...)? What history was obtained from this source @ -No Did you review nursing and triage notes (agree or disagree)? Why? @ -I reviewed and agree with nursing and triage notes Were old charts reviewed (outside hosp., previous admission, EMS record, old EKG, old radiological studies, urgent care reports/EKG's, fci records)? Report findings @ -No old charts were reviewed Differential Diagnosis? @ -Differential Headache: Migraine, allergic reaction, tension, cluster, carbon monoxide, central venous thrombosis, pension karma temporal arteritis, acute closure glaucoma, intercranial hemorrhage, mastoiditis, sinusitis, head injury, this is not meant to be an all-inclusive list. EKG interpreted by me (3pts min.). @ -As above X-rays interpreted by me (1pt min.). @ -None done CT interpreted by me (1pt min.). @ -None done U/S interpreted by me (1pt. min.). @ -None done What testing was considered but not performed or refused? (CT, X-rays, U/S, labs)? Why? @ -None What meds were considered but not given or refused? Why? @ -None Did you discuss the management of the patient with other professionals (professionals i.e. , PA, TUBING MACHINE TENDER, lab, RT, psych nurse, social human services assistants, wood shingle roofer, teacher, antisubmarine weapons officer, pillowcase cutter)? Give summary @ -No Was smoking cessation discussed for >3mins.? @ -No Was critical care preformed (if so, how long)? @ -No Were there social determinants of health that impacted care today? How? (Homelessness, low income, unemployed, alcoholism, drug addiction, transportation, low edu. Level, literacy, decrease access to med. care, [facility] [facility], rehab)? @ -No Was there de-escalation of care discussed even if they declined (Discuss DNR or withdrawal of care, Hospice)? DNR status @ -No What co-morbidities impacted this encounter? (DM, HTN, Smoking, COPD, CAD, Cancer, CVA, ARF, Chemo, Hep., AIDS, mental health diagnosis, sleep apnea, morbid obesity)? @ -None Was patient admitted / discharged? Hospital course, mention meds given and route, prescriptions, significant lab abnormalities, going to OR and other pertinent info. @ -Discharged, 33-year-old female presenting with complaints of headache, nausea, tingling in the lips, heaviness of the left side of the face, and periph eral vision problems. Patient was evaluated and on physical exam face appeared symmetric without edema or erythema bilaterally, neurological exam was grossly normal with no deficits noted. Patient was given Tylenol for the headache, Zofran for the nausea, and Benadryl for the tingling in her lips. Upon reevaluation later on her symptoms of headache nausea and tingling of the lips had resolved and she no longer was complaining of the left-sided facial heaviness or peripheral vision issues. Patient was deemed ready for discharge at this time and advised to follow-up with her PCP in 1 to 2 days. Undiagnosed new problem with uncertain prognosis? @ -No Drug Therapy requiring intensive monitoring for toxicity (Heparin, Nitro, Insulin, Cardizem)? @ -No Were any procedures done? @ -No Diagnosis/symptom? @ -Allergic reaction Acute, or Chronic, or Acute on Chronic? @ -Acute Uncomplicated (without systemic symptoms) or Complicated (systemic symptoms)? @ -Default Side effects of treatment? @ -No Exacerbation, Progression, or Severe Exacerbation? @ -No Poses a threat to life or bodily function? How? (Chest pain, [place], [place], pneumonia, PE, COPD, DKA, ARF, appy, cholecystitis, CVA, Diverticulitis, Homicidal, Suicidal, threat to staff... and all critical care pts) @ -No Disposition Clinical Impression: Allergic reaction Disposition: HOME SELF-CARE Instructions (If sedation given, give patient instructions): General Allergic Reaction (ED) Is patient prescribed a controlled substance at d/c from ED?: No Referrals: Amada Roblero MD [Primary Care Provider] - 1-2 days
[2024-10-20] MEDS: ACETAMINOPHEN TAB 325 MG TAB PO PRN (02:13)
[2024-10-20] MEDS: diphenhydrAMINE 25 MG CAP PO STA (02:14)
[2024-10-20] MEDS: ONDANSETRON ODT 4 MG TAB PO STA (02:15)
[2024-10-20 04:29] VITALS: BP 122/74; PULSE 61; RESP 18
== END 2024-10-20 04:42 | disposition home or self-care (01) ==
LOC: EC 00:35
DX: T78.40XA Allergy, unspecified, initial encounter (principal); R60.1 Generalized edema; F17.290 Nicotine dependence, other tobacco product, uncomplicated
CPT/HCPCS: 99283